=== PATIENT | female | born 1930 | race Caucasian/White ===

== ENCOUNTER 2016-09-19 16:46 | Inpatient (IN) | payer OTHER, MEDICARE ==
[~2016-09-19] VITALS: Ht 162.6 cm; Wt 81.6 kg
[~2016-09-19 16:46] MED LIST: ALPRAZOLAM0.5 M4 PO; CLOZARIL25 MG PO; GLIPIZIDE XL5 M1 PO; LISINOPRIL20 M1 PO; LOPERAMIDE2 M2 PO; MASON NATURAL2000 IU PO; MULTIPLE VITAM1 EAC2 PO; MYCOSTATIN POWD15 GM TOP; NORVASC 5MG TAB5 MG PO; OMEPRAZOLE20 MG PO; PRILOSEC 20MG C20 MG PO; SIMVASTATIN20 MG PO; SINEMET 25-1001 EACH PO; WARFARIN SODIUM2 MG PO
--- NOTE | 2016-09-19 16:58 | NUR ---
JOHANNA FROM HOME WITH COMPLAINTS OF WEAKNESS AND DIARRHEA FOR PAST 3 DAYS. PT REPORTS WATERY STOOLS, APPROX 3 YESTERDAY, TOOK IMMODIUM AND AT FIRST SAID SHE HAS HAD NO STOOLS TODAY BUT THEN SAID SHE HAD STOOL TODAY ALSO. AWAKE, ALERT AND ORIENTED, IN NO ACUTE DISTRESS
--- NOTE | 2016-09-19 16:58 | NUR ---
RECIEVED TO ROOM 17. TRANSFERRED TO [facility], VITALS TAKEN. PT RESTING QUIELTY WAITING ON PROVIDER TO SEE PT
--- NOTE | 2016-09-19 17:03 | ED GI/GU/ABDOMINAL COMPLAINT ---
History of Present Illness General Chief Complaint: General Adult Stated Complaint: BIBA DIARRHEA Source: patient, family, old records, EMS Exam Limitations: no limitations Vital Signs & Intake/Output Vital Signs & Intake/Output Vital Signs Date Time Temp Pulse Resp B/P Pulse O2 O2 Flow FiO2 Ox Delivery Rate 09/19 2226 97.5 69 18 124/56 96 Room Air 09/19 2148 98.1 84 16 130/58 95 Room Air 09/19 2045 97.0 72 18 142/58 94 Room Air 09/19 1826 96.3 77 18 148/62 93 Room Air 09/19 1800 Room Air 09/19 1655 98.2 96 16 164/84 95 Room Air ED Intake and Output 09/20 0000 09/19 1200 Intake Total 1999 Output Total 1 Balance 1998 Intake, IV 1999 Output, 1 Emesis Patient 180 lb Weight Allergies Coded Allergies: Opioids - Morphine Analogues (Intermediate, SEVERE NAUSEA/VOMITING 09/19/16) hydromorphone (Intermediate, SEVERE NAUSEA/VOMITING 09/19/16) morphine (Intermediate, VOMITING 09/19/16) Reconcile Medications Alprazolam 0.5 MG TABLET 1 TAB PO PRN ANXIETY/SLEEP (Reported) Carbidopa/Levodopa (Sinemet 25-100 MG Tablet) 25 MG-100 MG TABLET 0.5 TAB PO TID SIDE EFFECTS FROM MEDS (Reported) Cholecalciferol (Vitamin D3) (Vitamin D3) 1,000 UNIT CAPSULE 1 CAP PO BID SUPPLEMENT (Reported) Clozapine (Clozaril) 25 MG TABLET 0.5 TAB PO BID MENTAL HEALTH (Reported) Cyclobenzaprine HCl 10 MG TABLET 1 TAB PO AD PRN BACK PAIN (Reported) Glipizide (Glipizide XL) 5 MG TAB.ER.24 1 TAB PO QAM DM (Reported) Lisinopril 20 MG TABLET 1 TAB PO QAM BP (Reported) Loperamide HCl (Loperamide) 2 MG CAPSULE 1 CAP PO AD PRN DIARRHEA (Reported) Multivitamin (Multiple Vitamins) 1 EACH TABLET 1 TAB PO DAILY SUPPLEMENT ( Reported) Ondansetron (Zofran Odt) 4 MG TAB.RAPDIS 1 TAB SL AD PRN NAUSEA (Reported) Pyridoxine HCl (Vitamin B-6) 100 MG TABLET 1 TAB PO TID SUPPLEMENT (Reported) Simvastatin (Zocor*) 20 MG TABLET 1 TAB PO DAILY CHOLESTEROL (Reported) Warfarin Sodium (Coumadin) 3 MG TABLET 1 TAB PO AD BLOOD THINNER (Reported) Warfarin Sodium (Coumadin) 4 MG TABLET 1 TAB PO AD BLOOD THINNER (Reported) Triage Note: JOHANNA FROM HOME WITH COMPLAINTS OF WEAKNESS AND DIARRHEA FOR PAST 3 DAYS. PT REPORTS WATERY STOOLS, APPROX 3 YESTERDAY, TOOK IMMODIUM AND AT FIRST SAID SHE HAS HAD NO STOOLS TODAY BUT THEN SAID SHE HAD STOOL TODAY ALSO. AWAKE, ALERT AND ORIENTED, IN NO ACUTE DISTRESS Triage Nurses Notes Reviewed? yes ? n Is pt currently ? No Onset: Abrupt Duration: day(s): (1), constant Timing: recent history Quality/Severity: cramping Severity Numbers: 1 Location: generalized abdomen Radiation: no radiation Activities at Onset: none Prior Abdominal Problems: none No Modifying Factors: none Associated Symptoms: weakness HPI: This is a 86-year-old female with history of colon cancer status post hemicolectomy in 2002 Parkinson's A. fib, on Coumadin presents to the emergency room brought in by EMS complaining of weakness and several episodes of diarrhea for the past 3 days. She states she had a normal bowel movement yesterday, however the symptoms began again today. She denies abdominal pain chest pain shortness of breath fever chills or urinary symptoms however the patient states that she's been weak and lethargic secondary to her diarrhea and is been unable to tolerate by mouth. There are no modifying factors or associated symptoms. No recent antibiotic use. No weight loss no sick contacts with similar symptoms.her daughter helped to clean her up today and denies noting any black or bloody stools. (LOUIE JACK,BIRGIT) Past History Travel History Traveled to [place] past 21 day No Medical History Any Pertinent Medical History? see below for history Neurological: Parkinson's disease, INTERMITTENT CONFUSION EENT: NONE Cardiovascular: AFIB, hyperlipidemia, COMPLETE HEART BLOCK Respiratory: NONE Gastrointestinal: GERD, CHRONIC DIARRHEA Hepatic: NONE Renal: NONE Musculoskeletal: NONE Psychiatric: bipolar disease Endocrine: diabetes Blood Disorders: NONE Cancer(s): colon/rectal cancer GRAIN TRADER/Reproductive: NONE History of MRSA: No History of VRE: No History of CDIFF: No Pneumonia Vaccine: 05/21/06 Influenza Vaccine: 05/07/13 Surgical History Surgical History: appendectomy, cholecystectomy, colon resection (hemicolectomy right side 2002), PACEMAKER Psychosocial History Who do you live with Daughter Services at Home None What is your primary language Estonian Tobacco Use: Never used ETOH Use: occasional use, TWO DRINKS /DAY Illicit Drug Use: denies illicit drug use Family History Family History, If Any: Relation not specified for: FH: coronary artery disease Hx Contributory? No (BIRGIT PAVON) Review of Systems Review of Systems Constitutional: Reports: see HPI. All Other Systems: Reviewed and Negative Comments Review of systems: See HPI, All other systems negative. Constitutional, no chills fever or weight loss HEENT: No visual changes no sore throat no congestion Cardiovascular: No chest pain ,palpitation Skin, no jaundice no rashes Respiratory: No dyspnea cough sputum or hemoptysis GI: No nausea no vomiting (+) diarrhea : No dysuria No hematuria Muscle skeletal: no back pain, no neck pain, Neurologic: No numbness no confusion Psych: No stress anxiety or depression,. Heme/endocrine: No bruising no bleeding Immunology: No splenectomy (BIRGIT PAVON) Physical Exam Physical Exam General Appearance: well developed/nourished, no apparent distress, alert, awake Gastrointestinal: soft Comments: Well-developed well-nourished person in no acute distress HEENT: Normal EENT exam, extraocular motion intact, no nystagmus. Pupils equally round and reactive to light and accommodation. Nose is atraumatic. External auditory canal and Tympanic membranes clear. Pharynx normal. No swelling or edema. Neck: Supple, normal range of motion without pain or tenderness Back: Nontender, no CVA tenderness. Full range of motion Cardiovascular: Regular rate and rhythms no murmurs rubs Respiratory: Chest nontender. No respiratory distress.breath sounds clear to auscultation bilaterally Abdomen: Soft, nontender nondistended, no appreciable organomegaly. Normal bowel sounds. No ascites Extremity: No edema, no calf tenderness to palpation, normal and equal pulses. Neuro: Alert oriented x3, motor sensory normal, no focal neurologic deficits Skin: No appreciable rash on exposed skin, skin is warm and dry. Psych: Mood and affect is normal, memory and judgment is normal. Core Measures ACS in differential dx? Yes Severe Sepsis Present: No Septic Shock Present: No (BIRGIT PAVON) Progress Differential Diagnosis: AAA, bowel obstruction, colon cancer, diverticulitis, ischemic bowel, inflamm bowel dis, pancreatitis, PUD/GERD, perforated viscous, gastroentierits, colitis Plan of Care: Orders Procedure Date/time Status Regular Diet 09/20 B Active PROTHROMBIN TIME 09/20 0600 Active CBC WITHOUT DIFFERENTIAL 09/20 0600 Active BASIC ELECTROLYTES PLUS BUN&CR 09/20 0600 Active Pathway - chart 09/19 222 Active Pathway - chart 09/19 2218 Active House Staff 09/19 221 Active Patient Data 09/19 2218 Active Code Status 09/19 2218 Active Vital Signs 09/19 221 Active Teach/Educate 09/19 2209 Active Nutritional Intake, Monitor 09/19 2209 Active Isolation 09/19 2209 Active Patient Care Conference 09/19 221 Active Activity/Ambulation 09/19 221 Active Patient Data 09/19 2022 Active Admit to inpatient 09/19 1948 Active MISTAKE 09/19 1847 Active Intake & Output 09/19 1745 Active TROPONIN LEVEL 09/19 1730 Complete PROTHROMBIN TIME 09/19 1710 Complete EKG 09/19 1710 Active CULTURE,STOOL 09/19 1705 Active C.DIFFICILE 09/19 1705 Active LIPASE 09/19 1705 Complete LACTIC ACID 09/19 1705 Complete COMPREHENSIVE METABOLIC PANEL 09/19 1705 Complete CBC WITHOUT DIFFERENTIAL 09/19 1705 Complete AMYLASE 09/19 1705 Complete VTE Mechanical Prophylaxis 09/19 UNK Active MISTAKE 09/19 UNK Active Hemoccult 09/19 UNK Active FingerStick- Glucose 09/19 UNK Active Current Medications Sig/Mckay Start time Last Medication Dose Stop Time Status Admin Atorvastatin Calcium 10 MG 1700 09/20 1700 AC (Lipitor) Insulin Aspart 0 TIDAC 09/20 0800 CAN (NovoLOG) Insulin Aspart 0 TIDAC 09/20 0800 AC (NovoLOG) Acetaminophen 650 MG Q6P PRN 09/19 2230 AC (Tylenol) Alprazolam 0.5 MG DAILY NEEDED PRN 09/19 223 AC (Xanax) 09/26 2228 Ibuprofen 600 MG Q6P PRN 09/19 223 CAN (Motrin) Clozapine 12.5 MG BID 09/19 2226 AC (Clozaril 25MG Tab) Carbidopa/Levodopa 0.5 TAB TID 09/19 222 AC (Sinemet 25/100MG) Laboratory Tests 09/19/162004: Lactic Acid Cancelled 09/19/16 1730: Anion Gap 13, Estimated GFR > 60, BUN/Creatinine Ratio 21.3, Glucose 99, Lactic Acid 1.7, Calcium 9.0, Total Bilirubin 0.8, AST 51 H, ALT 39, Alkaline Phosphatase 71, Troponin I 0.02, Total Protein 6.9, Albumin 3.7, Globulin 3.2, Albumin/Globulin Ratio 1.2, Amylase < 30 L, Lipase 73, PT 36.5 H, INR 3.52 H, CBC w Diff NO MAN DIFF REQ, RBC 3.99 L, MCV 100.4 H, MCH 33.8 H, RDW 14.2, MPV 9.0, Gran % 58.0, Lymphocytes % 30.1, Monocytes % 10.7 H, Eosinophils % 1.2 , Basophils % 0 L, Absolute Granulocytes 4.6, Absolute Lymphocytes 2.4, Absolute Monocytes 0.8 H, Absolute Eosinophils 0.1, Absolute Basophils 0, PUBS MCHC 33.7 09/19/16 1710: Troponin I Cancelled Microbiology 09/19 1704 STOOL: Clostridium difficile Toxin A & B - ORD 09/19 1704 STOOL: Stool Culture - ORD Labs ordered old records reviewed IV fluids CAT scan ordered 09/19/2016 6:21:11 PM discussed the patient and her daughter all of her lab results to date and CT findings she's had no episodes of diarrhea here resting comfortably at this time case was discussed with Dr. Hairston Patient orthostatic upon standing week and feeling lightheaded upon attempted ambulation she is a fall risk premature discharge would BE medically harmful. Discussed with the patient and her family at leave all of her lab results they' re in agreement with admission at this time pending stool culture d/w dr tee will admit (LOUIE JACK,BIRGIT) Diagnostic Imaging: Viewed by Me: CT Scan. Discussed w/RAD: CT Scan. Radiology Impression: PATIENT: GEORGE NAJERA PRESENT AGE: 86 PATIENT ACCOUNT NO: [id number] : 31 LOCATION: [facility] ORDERING PHYSICIAN: BIRGIT JACK SERVICE DATE: 09/19/16 EXAM TYPE: CAT - CT ABD & PELVIS W/O IV CONTRAS EXAMINATION: CT ABDOMEN AND PELVIS WITHOUT CONTRAST CLINICAL INFORMATION: 86-year-old female patient with diarrhea, and weakness. History of colon cancer. COMPARISON: CT of the abdomen and pelvis on 01/29/2015. (For same symptoms). (Right hemicolectomy and sigmoid colitis). TECHNIQUE: Multidetector volumetric imaging was performed from the superior aspect of the liver through the pubic symphysis. Sagittal and coronal reformatted images were obtained on the technologist's workstation. DLP: 575 mGy -cm FINDINGS: Auricular Detoxification Specialist view shows wires from a dual-lead pacemaker in the appropriate position. The heart is prominent in size. The right hemidiaphragm is chronically elevated. Calcified fibroids are seen in the uterus. There is extensive vascular calcification throughout the abdominal aorta. LUNG BASES: Again there is chronic subsegmental atelectasis in the right lower lobe due to the elevated right hemidiaphragm. Coronary artery calcifications are evident. LIVER, GALLBLADDER, AND BILIARY TREE: The liver is normal. The common bile duct is dilated which is normal in a post cholecystectomy patient of this age. PANCREAS: Fatty infiltrated, atrophic. SPLEEN: The small presumed hemangioma is unchanged in size measuring 1.5 cm in diameter. ADRENAL GLANDS: Unremarkable. KIDNEYS AND URETERS: The kidneys are normal in size, shape, and attenuation. No hydronephrosis, hydroureter, or calculi seen. Again, there is chronic perinephric stranding bilaterally. BLADDER: Nearly empty but unremarkable. GASTROINTESTINAL TRACT: Again, there is evidence of a right hemicolectomy. No recurrent tumor is seen at the anastomotic site. On today's exam, there is absolutely no sign of sigmoid colitis that was present on the prior study. No free fluid is seen. Mesenteric fat is well preserved. Small bowel is normal. The stomach is distended by a moderate amount of fluid. A small hiatal hernia is present. ABDOMINAL WALL: There appears to be a fibrous tract extending from the umbilicus to the anterior abdominal wall at which point a small fat-containing hernia is seen. This is unchanged. Presumably this is postop. LYMPH NODES: Normal. VASCULAR: As mentioned above, diffuse arterial vascular calcification. This includes the uterine arteries. Presumably the patient has diabetes. PELVIC VISCERA: The retroflexed uterus contains a number of small calcified fibroids. No masses are seen. OSSEOUS STRUCTURES: No significant interval change in the degenerative joint disease and facet arthropathy. A small hemangioma is located in the vertebral body of T9. IMPRESSION: 1. No indication of active colitis at this time. Patient is status post right hemicolectomy. 2. Small calcified fibroids. DICTATED BY: ANDRY PATEL MD DATE/TIME DICTATED:09/19/161733 SCRUBBER SYSTEM ATTENDANT:BRODY DATE/TIME TRANSCRIBED:09/19/161733 CONFIDENTIAL, DO NOT COPY WITHOUT APPROPRIATE AUTHORIZATION. <Electronically signed in Other Vendor System> SIGNED BY: ANDRY PATEL MD 09/19/16 1800 Initial ED EKG: a sensed v paced at 80, no acute st seg changes, normal axis Prior EKG: unchanged (01/2015) (BIRGIT PAVON) Departure Departure Time of Disposition: 1948 Disposition: STILL A PATIENT Condition: Stable Clinical Impression Primary Impression: Orthostatic hypotension Secondary Impressions: Diarrhea Referrals: LAZARA LIVE MD (PCP/Family) Departure Forms: Customer Survey General Discharge Information Admission Note Spoke With: NAVJOT TEE MD Documentation of Exam: Documentation of any treatments & extenuating circumstances including Concerns Regarding Discharge (functional status, medication knowledge or non-compliance, living conditions, etc.) that warrant an admission rather than observation: IV fluids trend labs GI consult premature discharge would BE medically harmful possible PT consult for short-term rehabilitation she is a fall risk premature discharge would BE medically harmful as patient is orthostatic lightheaded here in the department upon ambulating (BIRGIT PAVON) PA/VENDOR RELATIONSHIP MANAGER Co-Sign Statement Statement: ED Attending supervision documentation- [X] I saw and evaluated the patient. I have also reviewed all the pertinent lab results and diagnostic results. I agree with the findings and the plan of care as documented in the PA's/VENDOR RELATIONSHIP MANAGER's documentation. [X] I have reviewed the ED Record and agree with the PA's/VENDOR RELATIONSHIP MANAGER's documentation. [] Additions or exceptions (if any) to the PAs/VENDOR RELATIONSHIP MANAGER's note and plan are summarized below: [] (JESSICA DE GUZMAN,EDWARD Baires)
--- NOTE | 2016-09-19 17:13 | NUR ---
GUERO DICKSON TO BEDSIDE FOR EVAL.
[2016-09-19] MEDS ORDERED: VITAMIN D31000 UNI1 PO (17:18)
[2016-09-19] MEDS ORDERED: VITAMIN B-6100 M1 PO (17:19)
[2016-09-19] MEDS ORDERED: COUMADIN3 M1 PO (17:20)
[2016-09-19] MEDS ORDERED: COUMADIN4 M1 PO (17:20)
[2016-09-19] MEDS ORDERED: ZOCOR20 M1 PO (17:21)
[2016-09-19] MEDS ORDERED: ZOFRAN ODT4 M1 SL (17:22)
--- NOTE | 2016-09-19 17:23 | NUR ---
PT CONTINUES AT CAT SCAN VIA STRETCHER.
[2016-09-19] MEDS ORDERED: CYCLOBENZAPRINE10 M1 PO (17:25)
--- NOTE | 2016-09-19 17:48 | NUR ---
LINE EST #20 TO LW. LABS SENT (LAV,SST,BLUE,MENDEZ.) NS BOLUS HUNG PER EMAR. PT NAUSEOUS AND VOMITED ABOUT 100ML OF YELLOW BILE AT THIS TIME. GUERO DICKSON MADE AWARE.
[2016-09-19 17:59] LABS: ABSOLUTE BASOPHIL COUNT 0 /CUMM (0.0-0.2); ABSOLUTE EOSINOPHIL COUNT 0.1 /CUMM (0.0-0.7); ABSOLUTE GRANULOCYTE CT 4.6 /CUMM (1.4-6.5); ABSOLUTE LYMPH COUNT 2.4 /CUMM (1.2-3.4); ABSOLUTE MONOCYTE COUNT 0.8 /CUMM (0.10-0.60); BASOPHIL % 0 % (0.0-2.0); EOSINOPHIL % 1.2 % (0-5); MEAN CORPUSCULAR HGB 33.8 PG (27.0-31.0); MEAN CORPUSCULAR HGB CONC 33.7 G/DL (33.0-37.0); MEAN CORPUSCULAR VOLUME 100.4 FL (81.0-99.0); PLATELET COUNT 153 /CUMM (130-400); RBC DISTRIBUTION WIDTH 14.2 % (11.5-14.5); RED BLOOD CELL CT 3.99 /CUMM (4.20-5.40); WHITE BLOOD CELL COUNT 7.9 /CUMM (4.8-10.8)
--- NOTE | 2016-09-19 18:00 | CT SCAN REPORT ---
EXAMINATION: CT ABDOMEN AND PELVIS WITHOUT CONTRAST CLINICAL INFORMATION: 86-year-old female patient with diarrhea, and weakness. History of colon cancer. COMPARISON: CT of the abdomen and pelvis on 01/29/2015. (For same symptoms). (Right hemicolectomy and sigmoid colitis). TECHNIQUE: Multidetector volumetric imaging was performed from the superior aspect of the liver through the pubic symphysis. Sagittal and coronal reformatted images were obtained on the technologist's workstation. DLP: 575 mGy-cm FINDINGS: Sinter Press Operator view shows wires from a dual-lead pacemaker in the appropriate position. The heart is prominent in size. The right hemidiaphragm is chronically elevated. Calcified fibroids are seen in the uterus. There is extensive vascular calcification throughout the abdominal aorta. LUNG BASES: Again there is chronic subsegmental atelectasis in the right lower lobe due to the elevated right hemidiaphragm. Coronary artery calcifications are evident. LIVER, GALLBLADDER, AND BILIARY TREE: The liver is normal. The common bile duct is dilated which is normal in a post cholecystectomy patient of this age. PANCREAS: Fatty infiltrated, atrophic. SPLEEN: The small presumed hemangioma is unchanged in size measuring 1.5 cm in diameter. ADRENAL GLANDS: Unremarkable. KIDNEYS AND URETERS: The kidneys are normal in size, shape, and attenuation. No hydronephrosis, hydroureter, or calculi seen. Again, there is chronic perinephric stranding bilaterally. BLADDER: Nearly empty but unremarkable. GASTROINTESTINAL TRACT: Again, there is evidence of a right hemicolectomy. No recurrent tumor is seen at the anastomotic site. On today's exam, there is absolutely no sign of sigmoid colitis that was present on the prior study. No free fluid is seen. Mesenteric fat is well preserved. Small bowel is normal. The stomach is distended by a moderate amount of fluid. A small hiatal hernia is present. ABDOMINAL WALL: There appears to be a fibrous tract extending from the umbilicus to the anterior abdominal wall at which point a small fat-containing hernia is seen. This is unchanged. Presumably this is postop. LYMPH NODES: Normal. VASCULAR: As mentioned above, diffuse arterial vascular calcification. This includes the uterine arteries. Presumably the patient has diabetes. PELVIC VISCERA: The retroflexed uterus contains a number of small calcified fibroids. No masses are seen. OSSEOUS STRUCTURES: No significant interval change in the degenerative joint disease and facet arthropathy. A small hemangioma is located in the vertebral body of T9. IMPRESSION: 1. No indication of active colitis at this time. Patient is status post right hemicolectomy. 2. Small calcified fibroids.
[2016-09-19 18:08] LABS: PT 36.5 SEC (9.4-12.5)
--- NOTE | 2016-09-19 19:27 | NUR ---
ORTHOSTATIC PRESSURES CHECKED. PT COMPLAINED OF WEAKNESS WHILE STANDING
--- NOTE | 2016-09-19 20:05 | NUR ---
BIRGIT PALMA AWARE OF POSITIVE ORTHOSTATIC VITALS, SECOND LITER OF IVF STARTED
--- NOTE | 2016-09-19 20:32 | NUR ---
PT ASSISTED IN GETTING PANTS OFF. WEARING DIAPER, STATES SHE IS INCONTINENT AT HOME. NO STOOL. PERINEAL AREA AND LOWER ABDOMINAL SKIN FOLD AND SKIN FOLD UNDER BOTH BREAST RED AND IRRITATED, DR VINES AWARE OF THIS.
--- NOTE | 2016-09-19 20:35 | History & Physical ---
NATTY DE GUZMAN,[facility] 09/19/162034: General Information and HPI MD Statement: I have seen and personally examined GEORGE NAJERA and documented this H&P. The patient is a 86 year old F who presented with a patient stated chief complaint of [diarrhea]. Source of Information: patient Exam Limitations: no limitations History of Present Illness: Patient is a pleasant 86 year old lady with a history of colon caner s/p right hemicolectomy, who is BIBA due diarrhea for 3 days and feeling very weak. she reports having nonbloody watery stool with foul smell almost 3 times a day. Every episode is accompanied by cramp which go away after defecation. Patient feels very weak, has been trying to drink and eat but reprots poor apetite. Denies abdominal pain and denies N/V, fever or chills. Also does not report any recent travels, change in diet, sick contact or recent antibiotic use. Of note, patient reprots recurrent similar episodes of diarrhea almost every month, but this time she felt very weak and decided to come. denies dizziness, LOC or fall. Denies chest pain, palpitation, SOB, also does not report any symptoms of upper respiratory infection and no urinary symptoms. She follows up regularly with her PCP Dr. Live every month. Her last admission at [facility] was in 2014 when she came with blood per rectum and was found to have ischemic colitis. Allergies/Medications Allergies: Coded Allergies: Opioids - Morphine Analogues (Intermediate, SEVERE NAUSEA/VOMITING 09/19/16) hydromorphone (Intermediate, SEVERE NAUSEA/VOMITING 09/19/16) morphine (Intermediate, VOMITING 09/19/16) Home Med list Alprazolam 0.5 MG TABLET 1 TAB PO PRN ANXIETY/SLEEP (Reported) Carbidopa/Levodopa (Sinemet 25-100 MG Tablet) 25 MG-100 MG TABLET 0.5 TAB PO TID SIDE EFFECTS FROM MEDS (Reported) Cholecalciferol (Vitamin D3) (Vitamin D3) 1,000 UNIT CAPSULE 1 CAP PO BID SUPPLEMENT (Reported) Clozapine (Clozaril) 25 MG TABLET 0.5 TAB PO BID MENTAL HEALTH (Reported) Cyclobenzaprine HCl 10 MG TABLET 1 TAB PO AD PRN BACK PAIN (Reported) Glipizide (Glipizide XL) 5 MG TAB.ER.24 1 TAB PO QAM DM (Reported) Lisinopril 20 MG TABLET 1 TAB PO QAM BP (Reported) Loperamide HCl (Loperamide) 2 MG CAPSULE 1 CAP PO AD PRN DIARRHEA (Reported) Multivitamin (Multiple Vitamins) 1 EACH TABLET 1 TAB PO DAILY SUPPLEMENT ( Reported) Ondansetron (Zofran Odt) 4 MG TAB.RAPDIS 1 TAB SL AD PRN NAUSEA (Reported) Pyridoxine HCl (Vitamin B-6) 100 MG TABLET 1 TAB PO TID SUPPLEMENT (Reported) Simvastatin (Zocor*) 20 MG TABLET 1 TAB PO DAILY CHOLESTEROL (Reported) Warfarin Sodium (Coumadin) 3 MG TABLET 1 TAB PO AD BLOOD THINNER (Reported) Warfarin Sodium (Coumadin) 4 MG TABLET 1 TAB PO AD BLOOD THINNER (Reported) Past History Travel History Traveled to [place] past 21 day No Medical History Neurological: Parkinson's disease, INTERMITTENT CONFUSION EENT: NONE Cardiovascular: AFIB, hyperlipidemia, COMPLETE HEART BLOCK Respiratory: NONE Gastrointestinal: GERD, CHRONIC DIARRHEA Hepatic: NONE Renal: NONE Musculoskeletal: NONE Psychiatric: bipolar disease Endocrine: diabetes Blood Disorders: NONE Cancer(s): colon/rectal cancer 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 Ambulation: cane Review of Systems Review of Systems Constitutional: Reports: malaise, weakness. Denies: chills, fever. EENTM: Reports: no symptoms. Cardiovascular: Denies: chest pain, palpitations, peripheral edema. Respiratory: Denies: cough, short of breath, sputum production. GI: Reports: diarrhea, changes in stool. Denies: abdominal pain, nausea, bloody stool, vomiting. Genitourinary: Reports: no symptoms. Musculoskeletal: Reports: no symptoms. Skin: Reports: no symptoms. Neurological/Psychological: Reports: tremors, weakness. Denies: ataxia, headache, numbness. Hematologic/Endocrine: Reports: no symptoms. Immunologic/Allergic: Reports: no symptoms. Exam & Diagnostic Data Last 24 Hrs of Vital Signs/I&O Vital Signs Date Time Temp Pulse Resp B/P Pulse O2 O2 Flow FiO2 Ox Delivery Rate 09/19 2226 97.5 69 18 124/56 96 Room Air 09/19 2148 98.1 84 16 130/58 95 Room Air 09/19 2045 97.0 72 18 142/58 94 Room Air 09/19 1826 96.3 77 18 148/62 93 Room Air 09/19 1800 Room Air 09/19 1655 98.2 96 16 164/84 95 Room Air Intake & Output 09/20 0800 09/20 0000 09/19 1600 Intake Total 1999 Output Total 1 Balance 1998 Intake, IV 1999 Output, 1 Emesis Patient 81.647 kg Weight Physical Exam General Appearance Alert, Oriented X3, Cooperative, No Acute Distress Skin No Rashes, No Breakdown, No Significant Lesion HEENT Atraumatic, PERRLA, EOMI, dry mucous membranes Neck Supple Cardiovascular Normal S1, Normal S2, No Murmurs, irregular Lungs Clear to Auscultation, Normal Air Movement Abdomen Normal Bowel Sounds, Soft, mild LUQ tenderness Neurological Normal Speech, Strength at 5/5 X4 Ext, Normal Tone, Sensation Intact, Cranial Nerves 3-12 NL Extremities No Clubbing, No Cyanosis, No Edema, Normal Pulses, No Tenderness/ Swelling Vascular Normal Pulses, Pulses Symmetrical Last 24 Hrs of Labs/Yury: Laboratory Tests 09/19/162004: Lactic Acid Cancelled 09/19/16 1730: Anion Gap 13, Estimated GFR > 60, BUN/Creatinine Ratio 21.3, Glucose 99, Lactic Acid 1.7, Calcium 9.0, Total Bilirubin 0.8, AST 51 H, ALT 39, Alkaline Phosphatase 71, Troponin I 0.02, Total Protein 6.9, Albumin 3.7, Globulin 3.2, Albumin/Globulin Ratio 1.2, Amylase < 30 L, Lipase 73, PT 36.5 H, INR 3.52 H, CBC w Diff NO MAN DIFF REQ, RBC 3.99 L, MCV 100.4 H, MCH 33.8 H, RDW 14.2, MPV 9.0, Gran % 58.0, Lymphocytes % 30.1, Monocytes % 10.7 H, Eosinophils % 1.2 , Basophils % 0 L, Absolute Granulocytes 4.6, Absolute Lymphocytes 2.4, Absolute Monocytes 0.8 H, Absolute Eosinophils 0.1, Absolute Basophils 0, PUBS MCHC 33.7 09/19/16 1710: Troponin I Cancelled Microbiology 09/19 170 STOOL: Clostridium difficile Toxin A & B - ORD 09/19 1704 STOOL: Stool Culture - ORD Assessment/Plan Assessment: Patient is a 86 year old lady with PMH significant for atrial fibrillation on coumadin, complete heart block s/p pacemaker (2012), hypertension, colon cancer s/p right hemicolectomy, Parkinsonian symptoms (patient denies parkinson's disease), diabetes type II, last admitted at [facility] in 2014 with ischemic colitis presented with blood per rectum. she came to the ED with 3 days of continuous diarrhea resulting in weakness and poor oral intake. In the ED patient is found to have orthostatic hypotension. Problem list and plan: Diarrhea etiologies: infectious (viral, bacterial, parasites), inflammatory, osmotic diarrhea in the setting of right hemicolectomy, ischemic colitis (pt has a history of LGIB and ischemic colitis, although denies blood in stool or abdominal pain). * IV hydration * check BEP in AM * repeat orthostat in AM * stool exam for ova, parasite, WBCs * stool culture * stool toxin for c-diff * Guaiac stool * GI follwo up as outpatient * repeat CBC in AM Atrial fibrillation * continue coumadin based on INR (therapeutic range: 2-3) * check INR in AM and dose coumadin Diabetes * hold Glipizide * accuchecks * insulin NSS HTN, HLD * continue lisinopril and statin Possible hx of schizoaffective disorder (and parkinsonism secondary to antipsychotics) Patient is unaware of any diagnosis for parkinson's disease or a mood disorder. * continue clozapine and sinemet * will obtain further history from the family (she lives with her daughter) Consistent carbohydrate diet 2 DVT px with coumadin FC As Ranked By This Provider Problem List: 1. Hypertension 2. Hyperlipidemia 3. Diabetes 4. Complete heart block 5. Parkinsonian features 6. Atrial fibrillation 7. Orthostatic hypotension 8. Diarrhea Core Measures/Miscellaneous Acute Coronary Syndrome ACS Diagnosis: No Cerebrovascular Accident CVA/TIA Diagnosis: No Congestive Heart Failure CHF Diagnosis: No Venous Thromboembolism VTE Risk Factors: Acute medical illness, Age > 40 VTE Prophylaxis Ordered Inpt: [facility] prophylaxis d/t: No contraindications No VTE Pharm Prophylaxis d/t: No contraindications VTE Diagnosis: No VTE Type: NONE VTE Confirmed by (Test): NONE Severe Sepsis Severe Sepsis Present: No Septic Shock Septic Shock Present: No Miscellaneous Documentation Attending Case Discussed With: NAVJOT DUMONT MD Primary Care Physician: LAZARA LIVE MD A Patient sees these Specialists GI specialist, patient does not remember the name Level of Patient Care: General Medicine YANNI YOO 09/19/166: Resident Review Statement Resident Statement: examined this patient, discussed with internetworking technician, agreed with internetworking technician Other Findings: Patient is 86-year-old female with past medical history significant for colon cancer status post hemicolectomy in 2002, Parkinson's disease, bipolar disease, atrial fibrillation on Coumadin, diabetes mellitus and hypertension came with chief complaint of diarrhea and weakness for 3 days. Patient endorses that she had off-and-on diarrhea from couple of weeks but was relieved by taking Imodium. This time she started diarrhea 3 days ago had a to 4 bowel movements daily, stool is soft without any evidence of blood or mucus but foul smelly more than usual. She also admits for having some nausea and vomiting off and on. Her diarrhea is associated with abdominal cramps but abdominal cramps relieved after having bowel movement. Denied outside food, recent travel, sick contact, recent antibiotic use within the last few weeks. Seen by PCP almost 2 weeks ago. She admits that she was feeling very weak and dizzy on changing her position from sitting to standing and movement. She denied gait imbalance or recent fall, syncope or loss of consciousness. She denies chest pain, palpitations, headache, numbness or tingling in her extremities or urinary complaints. Her last admission at [facility] was in 2014 due to bleeding per rectum most likely it was ischemic colitis. Vital signs on admission were temperature 98.2, pulse 96, respiratory rate 16, blood pressure 164/84, she was saturating 95% on room air. Orthostatics were positive her blood pressure on lying position was 140/62, 134/60 on sitting and 100/50 on standing. Admission labs were significant for WBC count 7.9, bilirubin 13.5, hematocrit 40 , platelet count 153, INR 3.52, sodium 143, potassium 4.1, BUNs [address] abdomen was negative for any evidence of acute colitis. EKG showed paced rhythm Physical examination Alert and oriented 3 Dry mucous membranes Head atraumatic Neck supple Chest clear to auscultate Heart S1 and S2 normal, irregularly irregular with no added sounds Abdomen soft, slight generalized abdominal tenderness with no organomegaly Extremities showed trace edema. Assessment and plan 86-year-old female with history of colon cancer status post hemicolectomy, hypertension, bipolar disorder/questionable schizophrenia, Parkinson's disease came with chief complaint of diarrhea and weakness for 3 days which could be viral gastroenteritis but we will rule out C. difficile. Problem list 1. Acute on chronic diarrhea 2. Weakness 3. History of Parkinson disease 4. Bipolar disorder 5. History of atrial fibrillation on Coumadin We will admit patient on general medical floor Vital signs every 3-4 hours Orthostatic vital signs every shift IV hydration with normal saline at rate 100 mils per hour We will send stool for culture and C. difficile We will watch for any signs of infection/acute abdomen We'll trend her WBC count and monitor electrolytes and will replete accordingly We'll continue all her home medications except antihypertensives and oral hypoglycemics Accu-Cheks and cover with NovoLog according to sliding scale. We will hold Coumadin for now as her INR is supratherapeutic we will check INR in the morning and dose according Pharmacological DVT prophylaxis Patient is full code NAVJOT DUMONT 09/20/16 0212: Attending MD Review Statement Attending Statement Attending MD Statement: examined this patient, discuss w/resident/PA/CLIENT ANALYST, agreed w/resident/PA/CLIENT ANALYST, reviewed EMR data (avail), reviewed images, amended to note Attending Assessment/Plan: CC: Diarrhea, feeling weak and lightheaded PMH : A. fib, complete heart block S/P pacer, HTN, history of colon cancer S/P right hemicolectomy, schizoaffective disorder complicated by tardive dyskinesia, DM 2 Patient is is brought in by EMS for diarrhea for 3 days and feeling very weak. she had 3 nonbloody watery stools with foul smell today, 5 times yesterday. Complains of mild soreness in abdomen without cramps. Because of frequency of diarrhea she was feeling very weak, with poor apetite. denies N/V, fever or chills, recent travels, change in diet, sick contact or recent antibiotic use, dizziness, LOC, fall. She has been getting recurrent watery stools, relieved at times with Imodium. Vitals: Afebrile, HR 96 at presentation with a BP of 164/84 saturating 95% on room air. Orthostatic vitals: B/P Lying 140/62 Pulse 73 B/P Sitting 134/60 Pulse 90 B/P Standing 100/50 Pulse 98 On exam: A O 3, lethargic, no acute distress, neck supple, no lymphadenopathy, no JVD, mucosa dry. CVS: S1-S2, RS: Clear to auscultate bilaterally. Abdomen: Soft, NT, ND, bowel sounds present. No dependent edema, no focal neurological deficit, no obvious rashes except fungal irritation in the groin falls and inframamillary area. Labs: Mildly elevated AST at 51 otherwise CBC, BMP, lactate, LFT unremarkable. INR 3.52 CT abdomen and pelvis without IV contrast:No indication of active colitis at this time. Patient is status post right hemicolectomy. Small calcified fibroids A and P #1 diarrhea: Three-day history of multiple stool, watery. No leukocytosis, no fever, abdomen nontender. CT findings unremarkable. Please obtain C. difficile. Viral etiologies possible for gastroenteritis, continue IV fluids. Obtain stool guaiac. Patient denies any jermaine blood in the stool. Continue soft GI diet for now as tolerated. May require outpatient GI follow-up for recurrent diarrhea episodes. #2 orthostatic hypotension: This probably is secondary to to volume loss in diarrhea. Patient received 2 L normal saline bolus in ER, continue IV Endocet 100 mL per hour. Repeat orthostatics in a.m. Given history of parkinsonism at anonymous dysfunction is possible but less likely. #3 patient has history of schizoaffective disorder currently on clozapine. Patient had episode of hospital delirium/psychosis and previous hospitalization. Watchful for systemic deterioration. #4 history of hypertension: Hold her antihypertensives. #5 history of parkinsonism/tardive dyskinesia: Patient was previously on Zyprexa which was changed to clozapine with improvement of symptoms. This is your tardive dyskinesia or combination of both is not clear if patient is on Sinemet, continue the same in hospital. #6 DM: Hold glipizide, continue sliding scale insulin short-acting with Accu- Cheks before meals and at bedtime. #7 A. fib, heart block S/P pacer: Patient currently on warfarin, INR supratherapeutic, hold her dose of warfarin, recheck INR in a.m., the dose of warfarin accordingly. #8 DVT prophylaxis: Supratherapeutic INR.
--- NOTE | 2016-09-19 21:01 | NUR ---
BARRIER WIPES USED TO CLEANSE UNDER BREAST, LOWER ABDOMINAL SKIN FOLD AND PERINEAL AREA
--- NOTE | 2016-09-19 21:05 | NUR ---
PT HAS BED #212-1
--- NOTE | 2016-09-19 21:40 | NUR ---
REPORT GIVEN TO [facility] AWARE PT HAS NOT HAD ANY STOOLS SINCE ADMISSION SO NO STOOL SPECIMENS SENT
[2016-09-19 22:26] VITALS: BP 124/56
--- NOTE | 2016-09-19 23:59 | NUR ---
PT ARRIVED FROM ED VIA STRETCHER AT 2200 R/T GI BLEED. ALERT/ORIENTED X2.DIZZY FORGETFUL AND [place] OF [place]. LSCTA. ABD SOFT NONTENDER. HYPOACTIVE BS ALL QUADRANTS. NO BM AT THIS TIME. INCONTINENT OF BLADER. RASHT TO ABDOMINAL FOLDS AND NILATERAL UNDERBREASTS. SKIN INTACT. NO EDEMA. PT FEELING DIZZY WHEN STANDING. ENCOURAGED FLUIDS. ADMISSION ORDERS INITIATED. FALL PRECAUTIONS MAINTAINED. ORTHSTATIC BP COMPLETED. WILL CONTINUE TO MONITOR ACCORDING TO POC.
--- NOTE | 2016-09-20 02:14 | Admission Certification ---
Admission Certification Certification Statement - As attending physician, I certify that at the time of - admission, based on clinical presentation, severity of - symptoms, need for further diagnostic testing and - therapeutic interventions, and risk of adverse outcomes - without in-hospital treatment, in my clinical assessment, - this patient requires an acute hospital stay for a minimum - of two nights or longer. I have also considered psychsocial - factors such as support system, advanced age, financial - issues, cognitive issues, and failed out-patient treatments, - past re-admission history, safety of patient, and lack of - compliance as applicable. Specific rationale supporting this admission is: Diarrhea, orthostatic hypotension
--- NOTE | 2016-09-20 04:59 | PN- Housestaff ---
Subjective Follow-up For: diarrhea orthostatic hypotension Subjective: Patient reports no further episodes of diarrhea and no abdominal cramps, still feels weak and feels needs to be in the hospital. no SOB, no palpitation, no chest pain, no abdominal pain. Review of Systems Constitutional: Reports: malaise, weakness. Denies: chills, fever. EENTM: Reports: no symptoms. Cardiovascular: Reports: no symptoms. Denies: chest pain, palpitations, peripheral edema. Respiratory: Denies: cough, sputum production. Gastrointestinal: Denies: abdominal pain, diarrhea, nausea, bloody stool, vomiting. Genitourinary: Reports: no symptoms. Musculoskeletal: Reports: no symptoms. Skin: Reports: no symptoms. Objective Last 24 Hrs of Vital Signs/I&O Vital Signs Date Time Temp Pulse Resp B/P Pulse O2 O2 Flow FiO2 Ox Delivery Rate 09/19 2225 97.5 69 18 124/56 96 Room Air 09/19 2148 98.1 84 16 130/58 95 Room Air 09/19 2045 97.0 72 18 142/58 94 Room Air 09/19 1826 96.3 77 18 148/62 93 Room Air 09/19 1800 Room Air 09/19 1655 98.2 96 16 164/84 95 Room Air Intake & Output 09/20 0800 09/20 0000 09/19 1600 Intake Total 2000 Output Total 1 Balance 1998 Intake, IV 1999 Output, 1 Emesis Patient 81.647 kg Weight Physical Exam General Appearance: Alert, Oriented X3, Cooperative, No Acute Distress Skin: No Rashes, No Breakdown, No Significant Lesion HEENT: Atraumatic, PERRLA, EOMI, Mucous Membr. moist/pink Neck: Supple Cardiovascular: Normal S1, Normal S2, No Murmurs, irregular Lungs: Clear to Auscultation, Normal Air Movement Abdomen: Normal Bowel Sounds, Soft, No Tenderness Neurological: Normal Speech, Strength at 5/5 X4 Ext, Normal Tone, Sensation Intact, Cranial Nerves 3-12 NL Extremities: No Clubbing, No Cyanosis, No Edema, Normal Pulses, No Tenderness/ Swelling Vascular: Normal Pulses, Pulses Symmetrical Current Medications: Current Medications Sig/Mckay Start time Last Medication Dose Route Stop Time Status Admin Acetaminophen 650 MG Q6P PRN 09/19 2229 AC 09/20 PO 0325 Alprazolam 0.5 MG DAILY NEEDED PRN 09/19 2229 AC PO 09/26 222 Atorvastatin Calcium 10 MG 1700 09/20 1700 AC PO Carbidopa/Levodopa 0.5 TAB TID 09/19 2225 AC 09/20 PO 0138 Clozapine 12.5 MG BID 09/19 2226 AC 09/20 PO 0138 Ibuprofen 600 MG Q6P PRN 09/19 2230 CAN PO Influenza Virus 0.5 ML 1000 09/20 1000 AC Vaccine IM 09/20 1001 Insulin Aspart 0 TIDAC 09/20 0800 CAN SC Insulin Aspart 0 TIDAC 09/20 0800 AC SC Ondansetron HCl 0 .STK-MED ONE 09/19 1749 DC .ROUTE Ondansetron HCl 4 MG ONCE ONE 09/19 1745 DC 09/19 IV 09/19 1746 1752 Sodium Chloride 1,000 ML Q10H 09/19 223 AC 09/20 IV 0003 Sodium Chloride 1,000 ML BOLUS ONE 09/19 1930 DC 09/19 IV 09/19 Sodium Chloride 1,000 ML BOLUS ONE 09/19 1715 DC 09/19 IV 09/19 1814 1745 Last 24 Hrs of Lab/Yury Results Last 24 Hrs of Labs/Mics: Laboratory Tests 09/19/16 2005: Lactic Acid Cancelled 09/19/16 1730: Anion Gap 13, Estimated GFR > 60, BUN/Creatinine Ratio 21.3, Glucose 99, Lactic Acid 1.7, Calcium 9.0, Total Bilirubin 0.8, AST 51 H, ALT 39, Alkaline Phosphatase 71, Troponin I 0.02, Total Protein 6.9, Albumin 3.7, Globulin 3.2, Albumin/Globulin Ratio 1.2, Amylase < 30 L, Lipase 73, PT 36.5 H, INR 3.52 H, CBC w Diff NO MAN DIFF REQ, RBC 3.99 L, MCV 100.4 H, MCH 33.8 H, RDW 14.2, MPV 9.0, Gran % 58.0, Lymphocytes % 30.1, Monocytes % 10.7 H, Eosinophils % 1.2 , Basophils % 0 L, Absolute Granulocytes 4.6, Absolute Lymphocytes 2.4, Absolute Monocytes 0.8 H, Absolute Eosinophils 0.1, Absolute Basophils 0, PUBS MCHC 33.7 09/19/16 1710: Troponin I Cancelled Microbiology 09/19 1704 STOOL: Clostridium difficile Toxin A & B - COLB 09/19 1704 STOOL: Stool Culture - COLB Assessment/Plan Assessment: Patient is a 86 year old lady with PMH significant for atrial fibrillation on coumadin, complete heart block s/p pacemaker (2012), hypertension, colon cancer s/p right hemicolectomy, Parkinsonian symptoms (patient denies parkinson's disease), diabetes type II, last admitted at [facility] in 2014 with ischemic colitis presented with blood per rectum. she came to the ED with 3 days of continuous diarrhea resulting in weakness and poor oral intake. In the ED patient is found to have orthostatic hypotension. Problem list and plan: Diarrhea etiologies: infectious (viral, bacterial, parasites), inflammatory, osmotic diarrhea in the setting of right hemicolectomy, ischemic colitis (pt has a history of LGIB and ischemic colitis, although denies blood in stool or abdominal pain). * IV hydration * check BEP in AM * repeat orthostat in AM * stool exam for ova, parasite, WBCs * stool culture * stool toxin for c-diff * Guaiac stool * GI follwo up as outpatient * repeat CBC in AM Atrial fibrillation * continue coumadin based on INR (therapeutic range: 2-3) * check INR in AM and dose coumadin Diabetes * hold Glipizide * accuchecks TID AC * insulin NSS HTN, HLD * continue lisinopril and statin Hx of schizoaffective disorder and parkinsonism * continue clozapine and sinemet Consistent carbohydrate diet 2 DVT px with coumadin FC Problem List: 1. Diarrhea 2. Orthostatic hypotension 3. Parkinsonian features Pain Ratin Pain Location: none Pain Goal: Pain 4 or less Pain Plan: tylenol Tomorrow's Labs & Rationales: INR (on coumadin)
[2016-09-20 08:18] LABS: ABSOLUTE BASOPHIL COUNT 0 /CUMM (0.0-0.2); ABSOLUTE EOSINOPHIL COUNT 0.1 /CUMM (0.0-0.7); ABSOLUTE GRANULOCYTE CT 3.3 /CUMM (1.4-6.5); ABSOLUTE LYMPH COUNT 1.9 /CUMM (1.2-3.4); ABSOLUTE MONOCYTE COUNT 0.6 /CUMM (0.10-0.60); BASOPHIL % 0.5 % (0.0-2.0); EOSINOPHIL % 1.7 % (0-5); GRANULOCYTE % 55.4 % (42.2-75.2); MEAN CORPUSCULAR HGB 34.1 PG (27.0-31.0); MEAN CORPUSCULAR HGB CONC 33.8 G/DL (33.0-37.0); MEAN CORPUSCULAR VOLUME 101.1 FL (81.0-99.0); MEAN PLATELET VOLUME 9.1 FL (7.4-10.4); PLATELET COUNT 127 /CUMM (130-400); RBC DISTRIBUTION WIDTH 14.2 % (11.5-14.5); RED BLOOD CELL CT 3.27 /CUMM (4.20-5.40)
[2016-09-20 08:19] LABS: PT 36.5 SEC (9.4-12.5)
[2016-09-20 08:26] VITALS: BP 122/60
--- NOTE | 2016-09-20 16:07 | PN- Att Addend ---
Attending MD Review Statement Attending Statement Attending MD Statement: examined this patient, discuss w/resident/PA/CLAIM ADMINISTRATOR, agreed w/resident/PA/CLAIM ADMINISTRATOR, reviewed EMR data (avail), discussed w/nursing Attending Assessment/Plan: Laboratory Tests 09/20/16 0618: Anion Gap 8, Estimated GFR > 60, BUN/Creatinine Ratio 17.1, PT 36.5 H, INR 3.52 H, CBC w Diff NO MAN DIFF REQ, RBC 3.27 L, MCV 101.1 H, MCH 34.1 H, RDW 14.2 , MPV 9.1, Gran % 55.4, Lymphocytes % 32.4, Monocytes % 10.0 H, Eosinophils % 1.7, Basophils % 0.5, Absolute Granulocytes 3.3, Absolute Lymphocytes 1.9, Absolute Monocytes 0.6, Absolute Eosinophils 0.1, Absolute Basophils 0, PUBS MCHC 33.8 09/19/162004: Lactic Acid Cancelled 09/19/16 1730: Anion Gap 13, Estimated GFR > 60, BUN/Creatinine Ratio 21.3, Glucose 99, Lactic Acid 1.7, Calcium 9.0, Total Bilirubin 0.8, AST 51 H, ALT 39, Alkaline Phosphatase 71, Troponin I 0.02, Total Protein 6.9, Albumin 3.7, Globulin 3.2, Albumin/Globulin Ratio 1.2, Amylase < 30 L, Lipase 73, PT 36.5 H, INR 3.52 H, CBC w Diff NO MAN DIFF REQ, RBC 3.99 L, MCV 100.4 H, MCH 33.8 H, RDW 14.2, MPV 9.0, Gran % 58.0, Lymphocytes % 30.1, Monocytes % 10.7 H, Eosinophils % 1.2 , Basophils % 0 L, Absolute Granulocytes 4.6, Absolute Lymphocytes 2.4, Absolute Monocytes 0.8 H, Absolute Eosinophils 0.1, Absolute Basophils 0, PUBS MCHC 33.7 09/19/16 1710: Troponin I Cancelled Vital Signs Date Time Temp Pulse Resp B/P Pulse O2 O2 Flow FiO2 Ox Delivery Rate 09/20 0826 97.4 68 18 122/60 94 Room Air 09/19 2226 97.5 69 18 124/56 96 Room Air 09/19 2148 98.1 84 16 130/58 95 Room Air 09/19 2045 97.0 72 18 142/58 94 Room Air 09/19 1826 96.3 77 18 148/62 93 Room Air 09/19 1800 Room Air 09/19 1655 98.2 96 16 164/84 95 Room Air
--- NOTE | 2016-09-20 16:09 | PN- Att Addend ---
Attending MD Review Statement Attending Statement Attending MD Statement: examined this patient, discuss w/resident/PA/SUPERANNUATION CLERK, agreed w/resident/PA/SUPERANNUATION CLERK, reviewed EMR data (avail), discussed w/nursing Attending Assessment/Plan: 86 year female with PMH significant for atrial fibrillation on coumadin, complete heart block s/p pacemaker (2012), hypertension, colon cancer s/p right hemicolectomy, Parkinsonian symptoms on sinimet, diabetes type II, schizoaffective disorder on clozapine last admitted at [place] in 2014 with ischemic colitis presented with blood per rectum. she came to the ED with 3 days of continuous diarrhea resulting in weakness and poor oral intake. 09/20- pt does not have diarrhea anymore Plan- will f/u on stool culture and c diff. if cont to have diarrhea we will get GI consult . CT abdomen-No indication of active colitis at this time.
[2016-09-20 16:19] VITALS: BP 122/72
--- NOTE | 2016-09-20 20:05 | NUR ---
NURSING NOTE: PATIENT VOMITED MOD AMT OF VOMITUS X 2. FLIGHT ATTENDANT/INFLIGHT SUPERVISOR RITA WAS NOTIFIED. GIVE ZOFRAN PER RITA. PATIENT STATED THAT SHE WASN'T NOT NAUSEOUS. REPORT TO NIGHT NURSE TO GIVE ZOFRAN IF SHE C/O NAUSEA.
[2016-09-20 22:46] VITALS: BP 122/70
--- NOTE | 2016-09-21 07:02 | PN- Housestaff ---
See Addendum Subjective Follow-up For: diarrhea orthostatic hypotension Subjective: Patient is alert and awake, laying in bed, reports no diarrhea or abdominal pain , no N/V, fever or chills. Of note, yesterday afternoon patient had N/V and vomited (nonbloody and yellowish). Review of Systems Constitutional: Reports: weakness. Denies: chills, fever. EENTM: Reports: no symptoms. Cardiovascular: Denies: chest pain, palpitations. Respiratory: Denies: cough, short of breath. Gastrointestinal: Denies: abdominal pain, diarrhea, vomiting. Genitourinary: Reports: no symptoms. Musculoskeletal: Reports: no symptoms. Skin: Reports: no symptoms. Objective Last 24 Hrs of Vital Signs/I&O Vital Signs Date Time Temp Pulse Resp B/P Pulse O2 O2 Flow FiO2 Ox Delivery Rate 09/20 2246 97.4 70 20 122/70 94 Room Air 09/20 1619 98.2 64 18 122/72 94 Room Air 09/20 0826 97.4 68 18 122/60 94 Room Air Intake & Output 09/21 1600 09/21 0800 09/21 0000 Intake Total 900 420 Output Total 425 200 Balance 475 220 Intake, IV 800 300 Intake, Oral 100 120 Output, Urine 425 200 Physical Exam General Appearance: Alert, Oriented X3, Cooperative, No Acute Distress Skin: No Rashes, No Breakdown HEENT: Atraumatic, EOMI Neck: Supple Cardiovascular: Normal S1, Normal S2, No Murmurs Lungs: Clear to Auscultation, Normal Air Movement Abdomen: Soft, No Tenderness Neurological: Normal Speech, Normal Tone Extremities: No Clubbing, No Cyanosis, No Edema Last 24 Hrs of Lab/Yury Results Last 24 Hrs of Labs/Mics: Laboratory Tests 09/21/16 0640: Sodium Pending, Potassium Pending, Chloride Pending, Carbon Dioxide Pending, Anion Gap Pending, BUN Pending, Creatinine Pending, BUN/Creatinine Ratio Pending 09/21/16 0620: PT Pending, INR Pending, CBC w Diff Pending, WBC Pending, RBC Pending, Hgb Pending, Hct Pending, MCV Pending, MCH Pending, RDW Pending, Plt Count Pending, MPV Pending, Gran % Pending, Lymphocytes % Pending, Monocytes % Pending, Eosinophils % Pending, Basophils % Pending, Absolute Granulocytes Pending, Absolute Lymphocytes Pending, Absolute Monocytes Pending, Absolute Eosinophils Pending, Absolute Basophils Pending, PUBS MCHC Pending Microbiology 09/20 1544 STOOL: Clostridium difficile Toxin A & B - COLB Assessment/Plan Assessment: Patient is a 86 year old lady with PMH significant for atrial fibrillation on coumadin, complete heart block s/p pacemaker (2012), hypertension, colon cancer s/p right hemicolectomy, Parkinsonian symptoms (patient denies parkinson's disease), diabetes type II, last admitted at [place] in 2014 with ischemic colitis presented with blood per rectum. she came to the ED with 3 days of continuous diarrhea resulting in weakness and poor oral intake. In the ED patient is found to have orthostatic hypotension. Problem list and plan: Diarrhea- resolved Patient had N/V yesterday evening. no diarrhea reported. * DC'd fluids, has adequate oral intake, orthostats are negative x2 days * f/u stool exam for ova, parasite, WBCs, stool culture, stool toxin for c-diff * f/u Guaiac stool * GI follow up as outpatient * repeat CBC and BEP in AM weakness generalized, no FNDs. orthostats negative. * PT eval: patient requires STR (needs assistance to maintain standing and can't take challenges) Atrial fibrillation * continue coumadin based on INR (therapeutic range: 2-3) * check INR in AM and dose coumadin Diabetes * hold Glipizide * acucise TID AC * insulin NS HTN, HLD * continue lisinopril and statin Hx of schizoaffective disorder and parkinsonism * continue clozapine and sinemet Consistent carbohydrate diet 2 DVT px with coumadin FC Problem List: 1. Orthostatic hypotension 2. Diarrhea 3. Atrial fibrillation Pain Ratin Pain Location: no pain Pain Goal: Pain 4 or less Pain Plan: mild pp Tomorrow's Labs & Rationales: CBC, BEP, INR anemia, vomiting, on coumadin
[2016-09-21 07:46] LABS: ABSOLUTE BASOPHIL COUNT 0 /CUMM (0.0-0.2); ABSOLUTE EOSINOPHIL COUNT 0.1 /CUMM (0.0-0.7); ABSOLUTE GRANULOCYTE CT 3.8 /CUMM (1.4-6.5); ABSOLUTE LYMPH COUNT 1.2 /CUMM (1.2-3.4); ABSOLUTE MONOCYTE COUNT 0.5 /CUMM (0.10-0.60); BASOPHIL % 0.5 % (0.0-2.0); EOSINOPHIL % 2.2 % (0-5); GRANULOCYTE % 66.9 % (42.2-75.2); MEAN CORPUSCULAR HGB 33.8 PG (27.0-31.0); MEAN CORPUSCULAR HGB CONC 33.3 G/DL (33.0-37.0); MEAN CORPUSCULAR VOLUME 101.5 FL (81.0-99.0); MEAN PLATELET VOLUME 8.6 FL (7.4-10.4); RBC DISTRIBUTION WIDTH 14.3 % (11.5-14.5); RED BLOOD CELL CT 3.45 /CUMM (4.20-5.40); WHITE BLOOD CELL COUNT 5.6 /CUMM (4.8-10.8)
[2016-09-21 08:46] LABS: PLATELET COUNT 112 /CUMM (130-400)
[2016-09-21 08:54] VITALS: BP 138/80
--- NOTE | 2016-09-21 11:33 | Patient Discharge Instructions ---
Discharge Instructions General Discharge Information You were seen/treated for: Chronic diarrhea Orthostatic hypotension Watch for these problems: Dizziness, headaches, blurred vision. Persistent diarrhea, bloody stool, abdominal pain, fevers or chills. Special Instructions: 1. Please take all medications as directed. Please note that your lisinopril is stopped due to low blood pressure. Follow up with your PCP within 1-2 weeks regarding restarting lisinopril. 2. Please have your INR and CBC checked within 1 week after discharge. there is a script for you to check and copy PCP, Dr. Yoo. 3. Please follow-up with the real estate broker within 1-2 weeks of discharge for possible further workup on the chronic diarrhea. Diet Continue normal diet: Yes Activity Full Activity/No Limits: Yes Acute Coronary Syndrome Inclusion Criteria At DC or during hospital stay patient has or had the following: ACS DIAGNOSIS No Discharge Core Measures Meds if any: Prescribed or Continued at Discharge Meds if any: NOT Prescribed or Continued at Discharge Congestive Heart Failure Inclusion Criteria At DC or during hospital stay patient has or had the following: CHF DIAGNOSIS No Discharge Core Measures Meds if any: Prescribed or Continued at Discharge Meds if any: NOT Prescribed or Continued at Discharge Cerebrovascular accident Inclusion Criteria At DC or during hospital stay patient has or had the following: CVA/TIA Diagnosis No Discharge Core Measures Meds if any: Prescribed or Continued at Discharge Meds if any: NOT Prescribed or Continued at Discharge Venous thromboembolism Inclusion Criteria VTE Diagnosis No VTE Type NONE VTE Confirmed by (Test) NONE Discharge Core Measures - Per Current guidelines, there needs to be overlap - treatment for the first 5 days of Warfarin therapy. - If discharged on Warfarin prior to 5 days of - overlap therapy, the patient will need to be - assessed for post discharge needs including - *Post discharge parental anticoagulation - *Warfarin and/or parental anticoagulation education - *Follow up date to check INR post discharge At least 5 days overlap therapy as Inpatient No Meds if any: Prescribed or Continued at Discharge Note: Overlap Therapy is Warfarin and Anticoagulant Meds if any: NOT Prescribed or Continued at Discharge
--- NOTE | 2016-09-21 11:57 | Discharge Summary ---
See Addendum Visit Information Visit Dates Admission Date: 09/19/16 Discharge Date: 09/22/16 Hospital Course Course Attending Physician: MELVIN DE GUZMAN,RADHA Worley Primary Care Physician: LAZARA LIVE MD Hospital Course: 86-year-old female with past medical history significant for colon cancer status post hemicolectomy in 2002, Parkinson's disease, bipolar disease, atrial fibrillation on Coumadin, diabetes mellitus and hypertension came with chief complaint of diarrhea and weakness for 3 days. She admittedf that she was feeling very weak and dizzy on changing her position from sitting to standing and movement. Vital signs on admission were temperature 98.2, pulse 96, respiratory rate 16, blood pressure 164/84, she was saturating 95% on room air. Orthostatics were positive her blood pressure on lying position was 140/62, 134/60 on sitting and 100/50 on standing. Admission labs were significant for WBC count 7.9, bilirubin 13.5, hematocrit 40 , platelet count 153, INR 3.52, sodium 143, potassium 4.1, BUNs [address] abdomen was negative for any evidence of acute colitis. Problem list: 1. Acute on chronic diarrhea 2. Weakness 3. History of Parkinson disease 4. Bipolar disorder 5. History of atrial fibrillation on Coumadin Hospital course: Diarrhea Interval improvement over the 3-4 day hospital course Patient did require intermittent fluid resuscitation, orthostatics remained negative Unable to obtain stool cultures for analysis Postdischarge recommendations to follow up with her technology director for possible further workup Weakness H&E exhibited generalized weakness with no evidence of focal neurologic deficits Orthostatics were negative Post evaluation with physical therapy: Recommendations for STIR: Patient needs assistance with maintaining standing and unable to tolerate some challenges Atrial fibrillation continued coumadin based on INR (therapeutic range: 2-3) Patient will check INR in [address] Live, PCP Diabetes Patient was maintained on insulin sliding scale. Restarting glipizide at discharge HTN, HLD She was previously on lisinopril for blood pressure control prior to admission which was held throughout the hospital course BP remained well controlled in the 120s and no evidence of tachycardia We'll hold off lisinopril, have her keep a BP log and follow up with her PCP within 7 days Hx of paranoid schizophrenia Confirmed diagnosis with daughter. she is on clozapine 12.5 mg BID for schizophrenia and takes sinemet for parkinsonian side effects. Patient also has history of hospital induced psychosis as the daughter is told by Dr. Live. She becomes confused and agitated and hallucinates when hospitalized. She checks CBC monthly while on clozapine. we continued clozapine and sinemet at home dose. Allergies: Coded Allergies: Opioids - Morphine Analogues (Intermediate, SEVERE NAUSEA/VOMITING 09/19/16) hydromorphone (Intermediate, SEVERE NAUSEA/VOMITING 09/19/16) morphine (Intermediate, VOMITING 09/19/16) Disposition Summary Disposition Principal Diagnosis: Acute on chronic diarrhea Additional Diagnosis: Generalized weakness Discharge Disposition: SNF Discharge Instructions General Discharge Information Code Status: Full Code Patient's Diet: Regular diet Patient's Activity: As tolerated Follow-Up Instructions/Appts: Please follow-up with the PCP within one week after discharge Lisinopril was held at discharge. 18 blood pressure log and have results sent to PCP Follow-up with technology director within 1-2 weeks after discharge for further workup in the setting of chronic diarrhea Medications at Discharge Discharge Medications: Stop taking the following medications: Lisinopril (Lisinopril) 20 MG TABLET ORAL Every Morning Continue taking these medications: Clozapine (Clozaril) 25 MG TABLET 0.5 Tablet ORAL TWICE DAILY Comments: PER PT MED LIST Glipizide (Glipizide XL) 5 MG TAB.ER.24 1 Tablet ORAL Every Morning Comments: PER PT MED LIST Carbidopa/Levodopa (Sinemet 25-100 MG Tablet) 25 MG-100 MG TABLET 0.5 Tablet ORAL THREE TIMES DAILY Comments: PREVIOUSLY NOTED ON CMR PER PT MED LIST Multivitamin (Multiple Vitamins) 1 EACH TABLET 1 Tablet ORAL DAILY Comments: PER PT MED LIST Alprazolam (Alprazolam) 0.5 MG TABLET 1 Tablet ORAL as needed for ANXIETY/SLEEP Comments: PER PT MED LIST Loperamide HCl (Loperamide) 2 MG CAPSULE 1 Capsule ORAL As Directed as needed for DIARRHEA Comments: PER PT MED LIST Cholecalciferol (Vitamin D3) (Vitamin D3) 1,000 UNIT CAPSULE 1 Capsule ORAL TWICE DAILY Comments: PER PT MED LIST Pyridoxine HCl (Vitamin B-6) 100 MG TABLET 1 Tablet ORAL THREE TIMES DAILY Comments: PER PT MED LIST Warfarin Sodium (Coumadin) 3 MG TABLET 1 Tablet ORAL As Directed Comments: MON, TUES, WED, THURS PER PT MED LIST Warfarin Sodium (Coumadin) 4 MG TABLET 1 Tablet ORAL As Directed Comments: FRI, SAT, SUN PER PT MED LIST Simvastatin (Zocor*) 20 MG TABLET 1 Tablet ORAL DAILY Comments: PER PT MED LIST Ondansetron (Zofran Odt) 4 MG TAB.RAPDIS 1 Tablet SUBLINGUAL As Directed as needed for NAUSEA Comments: PER PT MED LIST Cyclobenzaprine HCl (Cyclobenzaprine HCl) 10 MG TABLET 1 Tablet ORAL As Directed as needed for BACK PAIN Comments: PER PT MED LIST Copies To: MARIA T DE GUZMAN,ZO; MARIA T DE GUZMAN,LAZARA A
[2016-09-21 16:00] VITALS: BP 134/64
[2016-09-21 23:50] VITALS: BP 118/66
--- NOTE | 2016-09-22 00:10 | NUR ---
LATE ENTRY PT VERY CONFUSED AND ANXIOUS ASKING "WHEN AM I GOING HOME " "DO I HAVE TO GO TO [facility] AGAIN IN THE MORNING? DO I HAVE COURT IN THE MORNING?" "WHERE IS MY DAUGHTER", REDIRECTED AND GIVEN EMOTIONAL SUPPORT. REORIENTED TO PLACE AND TIME. STATING "THIS WAS A VERY BAD DAY FOR ME" PT STILL SEEMS ANXIOUS, CALL PLACED TO INSTRUMENT MAKER AND REPAIRER FOR ONE TIME ORDER FOR XANAX AT THIS TIME. PO XANAX GIVEN PER ORDER.
--- NOTE | 2016-09-22 05:59 | PN- Housestaff ---
NATTY DE GUZMAN,[facility] 09/22/16 0559: Subjective Follow-up For: diarrhea weakness orthostatic hypotension Subjective: Patient was seen and examined at bedside. She is alert and awake but is not oriented to person time and place. She denies having abdominal pain, nausea vomiting, or any diarrhea. She doesn't report any dizziness. She remembers that her daughter visited her last evening, and she wishes that she goes home today. Review of Systems Constitutional: Denies: chills, fever, weakness. EENTM: Reports: no symptoms. Cardiovascular: Reports: no symptoms. Respiratory: Reports: no symptoms. Gastrointestinal: Denies: diarrhea, nausea, changes in stool, vomiting. Genitourinary: Reports: no symptoms. Musculoskeletal: Reports: no symptoms. Skin: Reports: no symptoms. Objective Last 24 Hrs of Vital Signs/I&O Vital Signs Date Time Temp Pulse Resp B/P Pulse O2 O2 Flow FiO2 Ox Delivery Rate 09/21 2350 97.4 70 18 118/66 93 Room Air 09/21 1600 98.3 72 20 134/64 94 Room Air 09/21 1259 Room Air 09/21 0854 98.5 74 20 138/80 93 Room Air Intake & Output 09/22 0800 09/22 0000 09/21 1600 Intake Total 124 584 7240 Output Total 600 450 800 Balance -480 150 650 Intake, IV 800 Intake, Oral 120 600 650 Output, Urine 600 450 800 Physical Exam General Appearance: Alert, Cooperative, No Acute Distress, not oriented to time, place and person Skin: No Rashes, No Breakdown, No Significant Lesion HEENT: Atraumatic, PERRLA Neck: Supple Cardiovascular: Normal S1, Normal S2 Lungs: Clear to Auscultation, Normal Air Movement Abdomen: Normal Bowel Sounds, Soft, No Tenderness Neurological: Normal Speech, Strength at 5/5 X4 Ext, Normal Tone, Sensation Intact Extremities: No Clubbing, No Cyanosis, No Edema, Normal Pulses Vascular: Normal Pulses, Pulses Symmetrical Current Medications: Current Medications Sig/Mckay Start time Last Medication Dose Route Stop Time Status Admin Acetaminophen 650 MG Q6P PRN 09/19 2229 AC 09/20 PO 0325 Alprazolam 0.5 MG ONCE ONE 09/21 2144 DC 09/21 PO 09/21 Alprazolam 0.5 MG DAILY NEEDED PRN 09/19 2229 AC 09/21 PO 09/26 2229 1007 Atorvastatin Calcium 10 MG 1700 09/20 1700 AC 09/21 PO 1822 Carbidopa/Levodopa 0.5 TAB TID 09/19 2225 AC 09/21 PO 212 Clozapine 12.5 MG BID 09/19 2226 AC 09/21 PO 212 Insulin Aspart 0 TIDAC 09/20 0800 AC 09/21 SC 1851 Nystatin 1 PALLAVI BID 09/20 220 AC 09/21 TOP 2125 Patient Medication 1 ED .STK-MED ONE 09/21 1402 DC Teaching ED 09/21 1403 Sodium Chloride 1,000 ML Q10H 09/19 2229 DC 09/20 IV 2056 Last 24 Hrs of Lab/Yury Results Last 24 Hrs of Labs/Mics: Laboratory Tests 09/22/16 0620: PT Pending, INR Pending, CBC w Diff Pending, WBC Pending, RBC Pending, Hgb Pending, Hct Pending, MCV Pending, MCH Pending, RDW Pending, Plt Count Pending, MPV Pending, PUBS MCHC Pending Microbiology 09/21 812 STOOL: Stool Culture - COLB Assessment/Plan Assessment: Patient is a 86 year old lady with PMH significant for atrial fibrillation on coumadin, complete heart block s/p pacemaker (2012), hypertension, colon cancer s/p right hemicolectomy, Parkinsonian symptoms (patient denies parkinson's disease), diabetes type II, last admitted at [place] in 2014 with ischemic colitis presented with blood per rectum. she came to the ED with 3 days of continuous diarrhea resulting in weakness and poor oral intake. In the ED patient is found to have orthostatic hypotension. Problem list and plan: Diarrhea- resolved No diarrhea reported. No N/V and no abdominal pain. * DC'd fluids, has adequate oral intake, orthostats are negative * f/u stool exam for ova, parasite, WBCs, stool culture, stool toxin for c-diff * f/u Guaiac stool * GI follow up as outpatient weakness generalized, no FNDs. orthostats negative. * PT eval: patient requires STR (needs assistance to maintain standing and can't take challenges) * patient will be discharged to STR today Atrial fibrillation * continue coumadin based on INR (therapeutic range: 2-3) * INR 2.18 in AM, dosed coumadin 4 mg * Patient will check INR in [address] Yoo, PCP Diabetes * held Glipizide, will restart after discharge * acucise TID AC * insulin NS HTN, HLD * continue statin * lisinopril has been hold due to borderline low BP * patient will follow up with Dr. Yoo within 1-2 weeks after discharge regarding restarting lisinopril, INR results and CBC Hx of paranoid schizophrenia Confirmed diagnosis with daughter. she is on clozapine 12.5 mg BID for schizophrenia and takes sinemet for parkinsonian side effects. Patient also has history of hospital induced psychosis as the daughter is told by Dr. Yoo. She becomes confused and agitated and hallucinates when hospitalized. She checks CBC monthly while on clozapine. * we continued clozapine and sinemet at home dose. * Paitent will check CBC in [address] Yoo will be copied Consistent carbohydrate diet 2 DVT px with coumadin FC Problem List: 1. Orthostatic hypotension 2. Diarrhea 3. Parkinsonian features 4. Hyperlipidemia 5. Hypertension Pain Ratin Pain Location: none Pain Goal: Pain 4 or less Pain Plan: mild pain pathway Tomorrow's Labs & Rationales: none RADHA CHARLES 09/22/16 1545: Attending MD Review Statement Attending Statement Attending MD Statement: examined this patient, discuss w/resident/PA/BRAID CUTTER, agreed w/resident/PA/BRAID CUTTER, reviewed EMR data (avail), discussed with nursing, discussed with case mgmt Attending Assessment/Plan: plan is to dc pt today to [facility]. d/w pt the care plan. Will be dced without lisinopril and will f/u with PCp and if bp goes up can be restarted on lisinopril.
[2016-09-22 08:03] LABS: ABSOLUTE BASOPHIL COUNT 0 /CUMM (0.0-0.2); ABSOLUTE EOSINOPHIL COUNT 0.1 /CUMM (0.0-0.7); ABSOLUTE GRANULOCYTE CT 3.3 /CUMM (1.4-6.5); ABSOLUTE LYMPH COUNT 1.6 /CUMM (1.2-3.4); ABSOLUTE MONOCYTE COUNT 0.6 /CUMM (0.10-0.60); BASOPHIL % 0.5 % (0.0-2.0); EOSINOPHIL % 2.6 % (0-5); GRANULOCYTE % 57.8 % (42.2-75.2); HEMATOCRIT 35.8 % (37-47); MEAN CORPUSCULAR HGB 34.1 PG (27.0-31.0); MEAN CORPUSCULAR HGB CONC 33.6 G/DL (33.0-37.0); MEAN CORPUSCULAR VOLUME 101.4 FL (81.0-99.0); MEAN PLATELET VOLUME 9.1 FL (7.4-10.4); PLATELET COUNT 125 /CUMM (130-400); RBC DISTRIBUTION WIDTH 14.1 % (11.5-14.5); RED BLOOD CELL CT 3.54 /CUMM (4.20-5.40); WHITE BLOOD CELL COUNT 5.7 /CUMM (4.8-10.8)
[2016-09-22 08:15] LABS: PT 22.7 SEC (9.4-12.5)
[2016-09-22 08:35] VITALS: BP 120/70
[2016-09-22 14:41] VITALS: BP 120/70
[2016-09-22 15:48] VITALS: BP 120/62
--- NOTE | 2016-09-22 16:09 | NUR ---
PATIENT DISCHARGE IS TO [facility]. REPORT GIVEN TO NURSE AT [facility] AND PATIENT WAS DENIED ACCEPTANCE UNTIL HAS BOWEL MOVEMENT. PATIENT LAST BM ON 09/19. PATIENT WAS GIVEN MIRILAX AT 1121 A.M WITH NO RESULT. GANG MINER AWARE AND DUCOLAX SUP ORDERED. THIS NURSE WENT TO GIVE SUPPOSITORY AND PATIENT REFUSED. SPOKE WITH WOOD AND MD BONILLA. PO COLACE AND SENNA ORDERED AND GIVEN. PATIENT DAUGHTER WANTS DISCHARGE POSTPONE UNTIL TOMORROW. DISCHARGE WAS CANCELLED UNTIL PATIENT HAS RESULT FROM MEDS. PATIENT IS ON WILL CALL FROM [facility]. DAUGHTER AT BEDSIDE AND WANT PATIENT TO STAY UNTIL TOMORROW BECAUSE PATIENT WILL BECOME ANXIOUS IF SHE IS INCONTINENT. MD BONILLA AWARE. WILL FOLLOW.
== END 2016-09-22 19:35 | DRG 392 ==
LOC: ENRESERVDT → ENRESERVTM → ERH 16:46 → 2NB 19:48 → ERHI 19:48 → ENPENDDIS 19:48 → 2NB 21:55
PROVIDERS: Internal Medicine; Ophthalmology; Physician Assistant Medical; ADMIT Internal Medicine
DX: K52.9 Noninfective gastroenteritis and colitis, unspecified (principal); G20 Parkinson's disease; I48.91 Unspecified atrial fibrillation; F20.0 Paranoid schizophrenia; I95.1 Orthostatic hypotension; R19.7 Diarrhea, unspecified; Z79.01 Long term (current) use of anticoagulants; Z85.038 Personal history of other malignant neoplasm of large intestine; Z95.0 Presence of cardiac pacemaker; I10 Essential (primary) hypertension; E11.9 Type 2 diabetes mellitus without complications; Z79.84 Long term (current) use of oral hypoglycemic drugs; F31.9 Bipolar disorder, unspecified; E78.5 Hyperlipidemia, unspecified
CPT/HCPCS: 2NBP; 36415; 74176; 82436; 87045; 90662; 93005; 93010; 96361; 96374; 97110-GO; 97116-GO; 97161-GP; 97530-GO; J2405

== ENCOUNTER 2016-11-15 18:34 | Emergency (ER) | payer OTHER, MEDICARE ==
[~2016-11-15 18:34] MED LIST changes: +COUMADIN3 M1 PO; +COUMADIN4 M1 PO; +CYCLOBENZAPRINE10 M1 PO; +VITAMIN B-6100 M1 PO; +VITAMIN D31000 UNI1 PO; +ZOCOR20 M1 PO; +ZOFRAN ODT4 M1 SL
[2016-11-15 19:05] LABS: ABSOLUTE BASOPHIL COUNT 0 /CUMM (0.0-0.2); ABSOLUTE EOSINOPHIL COUNT 0 /CUMM (0.0-0.7); ABSOLUTE GRANULOCYTE CT 6.8 /CUMM (1.4-6.5); ABSOLUTE LYMPH COUNT 1.7 /CUMM (1.2-3.4); ABSOLUTE MONOCYTE COUNT 0.7 /CUMM (0.10-0.60); BASOPHIL % 0.2 % (0.0-2.0); EOSINOPHIL % 0.1 % (0-5); GRANULOCYTE % 73.8 % (42.2-75.2); HEMATOCRIT 42.1 % (37-47); MEAN CORPUSCULAR HGB 32.6 PG (27.0-31.0); MEAN CORPUSCULAR HGB CONC 32.7 G/DL (33.0-37.0); MEAN CORPUSCULAR VOLUME 99.6 FL (81.0-99.0); MEAN PLATELET VOLUME 9.9 FL (7.4-10.4); PLATELET COUNT 170 /CUMM (130-400); RBC DISTRIBUTION WIDTH 13.5 % (11.5-14.5); RED BLOOD CELL CT 4.23 /CUMM (4.20-5.40); WHITE BLOOD CELL COUNT 9.2 /CUMM (4.8-10.8)
--- NOTE | 2016-11-15 19:17 | ED GI/GU/ABDOMINAL COMPLAINT ---
History of Present Illness General Chief Complaint: Nausea, Vomiting, Diarrhea Stated Complaint: NVD Source: patient, family (DAUGHTER) Exam Limitations: no limitations Allergies Coded Allergies: Opioids - Morphine Analogues (Intermediate, SEVERE NAUSEA/VOMITING 09/19/16) hydromorphone (Intermediate, SEVERE NAUSEA/VOMITING 09/19/16) morphine (Intermediate, VOMITING 09/19/16) Reconcile Medications Alprazolam 0.5 MG TABLET 1 TAB PO PRN ANXIETY/SLEEP (Reported) Carbidopa/Levodopa (Sinemet 25-100 MG Tablet) 25 MG-100 MG TABLET 0.5 TAB PO TID SIDE EFFECTS FROM MEDS (Reported) Cholecalciferol (Vitamin D3) (Vitamin D3) 1,000 UNIT CAPSULE 1 CAP PO BID SUPPLEMENT (Reported) Clozapine (Clozaril) 25 MG TABLET 0.5 TAB PO BID MENTAL HEALTH (Reported) Cyclobenzaprine HCl 10 MG TABLET 1 TAB PO AD PRN BACK PAIN (Reported) Glipizide (Glipizide XL) 5 MG TAB.ER.24 1 TAB PO QAM DM (Reported) Loperamide HCl (Loperamide) 2 MG CAPSULE 1 CAP PO AD PRN DIARRHEA (Reported) Multivitamin (Multiple Vitamins) 1 EACH TABLET 1 TAB PO DAILY SUPPLEMENT ( Reported) Ondansetron (Zofran Odt) 4 MG TAB.RAPDIS 1 TAB SL AD PRN NAUSEA (Reported) Pyridoxine HCl (Vitamin B-6) 100 MG TABLET 1 TAB PO TID SUPPLEMENT (Reported) Simvastatin (Zocor*) 20 MG TABLET 1 TAB PO DAILY CHOLESTEROL (Reported) Warfarin Sodium (Coumadin) 3 MG TABLET 1 TAB PO AD BLOOD THINNER (Reported) Warfarin Sodium (Coumadin) 4 MG TABLET 1 TAB PO AD BLOOD THINNER (Reported) Triage Note: BIBA FROM HOME C/O N/V/D SINCE 0100 WITH INCREASED WEAKNESS/DIZZINESS. PT TOOK ZOFRAN AT HOME AROUND 4PM AND DENIES VOMITING SINCE THAT TIME. DENIES PAIN ON ARRIVAL, C/O "UPSET STOMACH BUT IT'S NOT PAIN." Triage Nurses Notes Reviewed? yes ? N Is pt currently ? No HPI: This patient is an 86-year-old female with a past medical history including Parkinson's disease, chronic diarrhea, GERD, and colorectal cancer who presented to the emergency department today for evaluation of nausea, vomiting, and diarrhea. The patient's daughter reported that she was moving from sitting with abdominal discomfort around 1:30 this morning. The patient, there is no pain, its just sore." She has vomited 5 or 6 times today. The patient's daughter reported that she thought she saw, "coffee ground emesis." Her daughter reported that she'll need her 3 doses of Zofran today. He was supposed to follow up with a health facilities surveyor on November 08, but missed the appointment because her physical therapist stated that she was not strong enough after being discharged from rehabilitation to do stairs. The patient is in remission since 2002 from colon cancer. The patient denied any fevers, chills, chest pain, difficulty breathing, or any other associated symptoms. (SHERIE TORO PA-C) Vital Signs & Intake/Output Vital Signs & Intake/Output Vital Signs Date Time Temp Pulse Resp B/P Pulse O2 O2 Flow FiO2 Ox Delivery Rate 11/15 2314 97.0 68 18 158/77 94 Room Air 11/15 2124 98.9 76 18 136/64 94 Room Air 11/15 1845 18 93 Room Air 11/15 1836 99.7 87 20 117/63 90 Room Air ED Intake and Output 11/16 0000 11/15 1200 Intake Total 0 Output Total Balance 0 Intake, Oral 0 Past History Medical History Any Pertinent Medical History? see below for history Neurological: Parkinson's disease, INTERMITTENT CONFUSION EENT: NONE Cardiovascular: AFIB, hyperlipidemia, COMPLETE HEART BLOCK Respiratory: NONE Gastrointestinal: GERD, CHRONIC DIARRHEA Hepatic: NONE Renal: NONE Musculoskeletal: NONE Psychiatric: bipolar disease Endocrine: diabetes Blood Disorders: NONE Cancer(s): colon/rectal cancer AUTOMATION QTP TESTER/Reproductive: NONE History of MRSA: No History of VRE: No History of CDIFF: No Influenza Vaccine: 05/07/13 Surgical History Surgical History: appendectomy, cholecystectomy, colon resection (hemicolectomy right side 2002), PACEMAKER Psychosocial History Who do you live with Daughter Services at Home None What is your primary language Romanian Family History Family History, If Any: Relation not specified for: FH: coronary artery disease Hx Contributory? No (SHERIE TORO PA-C) Review of Systems Review of Systems Constitutional: Reports: no symptoms. EENTM: Reports: no symptoms. Respiratory: Reports: no symptoms. Cardiovascular: Reports: no symptoms. GI: Reports: see HPI. Genitourinary: Reports: no symptoms. Musculoskeletal: Reports: no symptoms. Skin: Reports: no symptoms. Neurological/Psychological: Reports: no symptoms. All Other Systems: Reviewed and Negative (CORTEZ MUNGUIA,SHERIE) Physical Exam Physical Exam Gastrointestinal: normal bowel sounds, soft, no organomegaly, TENDERNESS TO PALPATION IN THE RUQ WITH NO REBOUND OR GUARDING. NO PERITONEAL SIGNS. NO MCBURNY'S POINT TENDERNESS. NO MASSES. NO HERNIAS Comments: Well-developed well-nourished person in no acute distress HEENT: Normal EENT exam. Head normocephalic, moist mucous membranes Pupils equally round and reactive to light. Neck: Supple, no lymphadenopathy Back: Normal inspection Cardiovascular: Regular rate and rhythm with no murmurs, rubs, or gallops Respiratory: No respiratory distress. Breath sounds clear to auscultation bilaterally Extremity: Normal and equal pulses Neuro: Alert oriented x3, cranial nerves II through XII grossly intact. Skin: No appreciable rash on exposed skin, skin is warm and dry. Psych: Mood and affect is normal Core Measures ACS in differential dx? No Severe Sepsis Present: No Septic Shock Present: No (CORTEZ MUNGUIA,SHERIE) Progress Differential Diagnosis: AAA, AMI, appendicitis, biliary colic, bowel obstruction , colon cancer, cholecystitis, diverticulitis, gastritis, hepatitis, ischemic bowel, inflamm bowel dis, kidney stone, PID/cervicitis, PUD/GERD, perforated viscous, UTI/pyelo Diagnostic Imaging: Viewed by Me: CT Scan. Discussed w/RAD: CT Scan. Radiology Impression: PATIENT: GEORGE NAJERA PRESENT AGE: 86 PATIENT ACCOUNT NO: [id number] : 31 LOCATION: [facility] ORDERING PHYSICIAN: SHERIE TORO PA-C SERVICE DATE: 11/15/16 EXAM TYPE: CAT - CT ABD & PELVIS W IV CONTRAST EXAMINATION: CT ABDOMEN AND PELVIS WITH CONTRAST CLINICAL INFORMATION: Nausea and vomiting. COMPARISON: CT scan abdomen pelvis 09/19/2016 , 02/25/2010 TECHNIQUE: Multidetector volumetric imaging was performed of the abdomen and pelvis before and after the IV administration of 95 mL of Optiray 320 intravenous contrast. Sagittal and coronal reformatted images were obtained on the technologist's workstation. DLP: 429.90 mGy-cm FINDINGS: LUNG BASES: Pacemaker lead at base of heart. Lung bases are clear. No pleural effusion. LIVER, GALLBLADDER, AND BILIARY TREE: Indistinct 3 mm hypodensity anterior left lobe of liver too small to fully characterize. This is unchanged since prior examinations. No suspicious liver lesion. No intrahepatic bile duct dilatation. Gallbladder surgically absent. Chronic dilatation of the extrahepatic CBD unchanged since CAT scan of 02/23/2010. No calcified stone within the bile ducts. PANCREAS: Fatty atrophy of the pancreas. SPLEEN: 1.3 cm cyst at the posterior mid spleen. ADRENAL GLANDS: Unremarkable. KIDNEYS AND URETERS: The kidneys are normal in size, shape, and attenuation. No hydronephrosis, hydroureter, or calculi seen. No perinephric stranding. BLADDER: Unremarkable. GASTROINTESTINAL TRACT: Status post right hemicolectomy. Anastomosis at the splenic flexure intact. No bowel obstruction. No bowel wall thickening or edema. Moderate volume of stool in the colon. Moderate volume of food debris in the proximal small bowel loops which can be due to low motility. There is no acute changes of bowel wall. ABDOMINAL WALL: No significant hernia is appreciated. LYMPH NODES: Normal. VASCULAR: Atherosclerotic vascular wall calcifications of aorta and iliac vessels without aneurysm. PELVIC VISCERA: Uterus is retroverted. Multiple calcified fibroids in uterus. No adnexal abnormality. OSSEOUS STRUCTURES: Multilevel degenerative change of the spine. Disc height narrowing L3-L4 with endplate spurs and vacuum disc phenomenon. Degenerative spondylosis of the thoracic spine with disc height narrowing and endplate spurs. There is a hemangioma at T9 vertebrae. IMPRESSION: No acute change of bowel. Status post right hemicolectomy. Moderate volume of food debris in the proximal small bowel loops can be due to low motility. There is no obstruction or bowel wall thickening. DICTATED BY: CHARANJIT ARAUJO MD DATE/TIME DICTATED:11/15/162056 GENERAL INSPECTOR:BRODY DATE/TIME TRANSCRIBED:2056 CONFIDENTIAL, DO NOT COPY WITHOUT APPROPRIATE AUTHORIZATION. < Electronically signed in Other Vendor System> SIGNED BY: CHARANJIT ARAUJO MD 2110 Initial ED EKG: no ST T wave changes, IRREGULAR RHYTHM, VENTRICULAR PACED Comments: 11/15/2016 9:36:11 PM: I discussed the results of the imaging and laboratory studies of this patient. No increased white blood cell count. H&H is stable. Unremarkable CT scan of the abdomen and pelvis. I discussed this patient and she will likely need to follow up with a GI doctor. I called this patient's daughter who is currently at home and no longer at the bedside. She reported, "I cannot come and get her because my brother is on dialysis and I can't leave him alone." Discussed this patient with Dr. Hicks. In agreement with the plan this patient is stable for discharge with GI follow-up. (CORTEZ MUNGUIA,SHERIE) Plan of Care: Orders Procedure Date/time Status LACTIC ACID 11/15 1953 Complete LIPASE 11/16 1843 Complete DIRECT BILIRUBIN 11/16 1843 Complete AMYLASE 11/16 1843 Complete TROPONIN LEVEL 11/15 1842 Complete COMPREHENSIVE METABOLIC PANEL 11/15 1842 Complete CBC WITHOUT DIFFERENTIAL 11/15 1842 Complete EKG 11/15 1842 Active Laboratory Tests 11/15/16 2254: Lactic Acid Cancelled 11/15/161956: Lactic Acid 2.2 H 11/15/161855: Urine Color Cancelled, Urine Clarity Cancelled, Urine pH Cancelled, Ur Specific [place] Cancelled, Urine Protein Cancelled, Urine Ketones Cancelled, Urine Nitrite Cancelled, Urine Bilirubin Cancelled, Urine Urobilinogen Cancelled, Ur Leukocyte Esterase Cancelled, Ur Microscopic Cancelled, Urine Hemoglobin Cancelled, Urine Glucose Cancelled 11/15/161843: Anion Gap 12, Estimated GFR > 60, BUN/Creatinine Ratio 26.3 H, Glucose 217 H, Calcium 9.8, Total Bilirubin 0.6, Direct Bilirubin 0.3, AST 30, ALT 41, Alkaline Phosphatase 105, Troponin I 0.04, Total Protein 7.1, Albumin 3.9, Globulin 3.2, Albumin/Globulin Ratio 1.2, Amylase 86, Lipase 312 H, CBC w Diff NO MAN DIFF REQ, RBC 4.23, MCV 99.6 H, MCH 32.6 H, RDW 13.5, MPV 9.9, Gran % 73.8, Lymphocytes % 18.0 L, Monocytes % 7.9, Eosinophils % 0.1, Basophils % 0.2, Absolute Granulocytes 6.8 H, Absolute Lymphocytes 1.7, Absolute Monocytes 0.7 H, Absolute Eosinophils 0, Absolute Basophils 0, PUBS MCHC 32.7 L Microbiology 11/16 1907 STOOL: Clostridium difficile Toxin A & B - CAN Cancelled: Cancelled via OE: UNABLE TO PROVIDE SAMPLE Departure Departure Disposition: HOME OR SELF CARE Condition: Stable Clinical Impression Primary Impression: Nausea and vomiting Qualifiers: Vomiting type: unspecified Vomiting Intractability: non-intractable Qualified Code: R11.2 - Nausea with vomiting, unspecified Referrals: MARIA T DE GUZMAN,LAZARA Anderson (PCP/Family) OREN DE GUZMAN,EVA Cannon Additional Instructions: Please follow-up with your primary care physician. Be sure to stay hydrated. Take previously prescribed medications as directed. Return for any worsening symptoms or concerns. Please follow-up with the health facilities surveyor's information has been provided to you in this packet. Departure Forms: Customer Survey General Discharge Information (CORTEZ MUNGUIA,SHERIE) PA/VINYL FLOORING INSTALLER Co-Sign Statement Statement: ED Attending supervision documentation- [X] I saw and evaluated the patient. I have also reviewed all the pertinent lab results and diagnostic results. I agree with the findings and the plan of care as documented in the PA's/VINYL FLOORING INSTALLER's documentation. [X] I have reviewed the ED Record and agree with the PA's/VINYL FLOORING INSTALLER's documentation. [] Additions or exceptions (if any) to the PAs/VINYL FLOORING INSTALLER's note and plan are summarized below: [] (JESSICA DE GUZMAN,EDWARD Baires)
--- NOTE | 2016-11-15 21:11 | CT SCAN REPORT ---
EXAMINATION: CT ABDOMEN AND PELVIS WITH CONTRAST CLINICAL INFORMATION: Nausea and vomiting. COMPARISON: CT scan abdomen pelvis 09/19/2016 , 02/25/2010 TECHNIQUE: Multidetector volumetric imaging was performed of the abdomen and pelvis before and after the IV administration of 95 mL of Optiray 320 intravenous contrast. Sagittal and coronal reformatted images were obtained on the technologist's workstation. DLP: 429.90 mGy-cm FINDINGS: LUNG BASES: Pacemaker lead at base of heart. Lung bases are clear. No pleural effusion. LIVER, GALLBLADDER, AND BILIARY TREE: Indistinct 3 mm hypodensity anterior left lobe of liver too small to fully characterize. This is unchanged since prior examinations. No suspicious liver lesion. No intrahepatic bile duct dilatation. Gallbladder surgically absent. Chronic dilatation of the extrahepatic CBD unchanged since CAT scan of 02/23/2010. No calcified stone within the bile ducts. PANCREAS: Fatty atrophy of the pancreas. SPLEEN: 1.3 cm cyst at the posterior mid spleen. ADRENAL GLANDS: Unremarkable. KIDNEYS AND URETERS: The kidneys are normal in size, shape, and attenuation. No hydronephrosis, hydroureter, or calculi seen. No perinephric stranding. BLADDER: Unremarkable. GASTROINTESTINAL TRACT: Status post right hemicolectomy. Anastomosis at the splenic flexure intact. No bowel obstruction. No bowel wall thickening or edema. Moderate volume of stool in the colon. Moderate volume of food debris in the proximal small bowel loops which can be due to low motility. There is no acute changes of bowel wall. ABDOMINAL WALL: No significant hernia is appreciated. LYMPH NODES: Normal. VASCULAR: Atherosclerotic vascular wall calcifications of aorta and iliac vessels without aneurysm. PELVIC VISCERA: Uterus is retroverted. Multiple calcified fibroids in uterus. No adnexal abnormality. OSSEOUS STRUCTURES: Multilevel degenerative change of the spine. Disc height narrowing L3-L4 with endplate spurs and vacuum disc phenomenon. Degenerative spondylosis of the thoracic spine with disc height narrowing and endplate spurs. There is a hemangioma at T9 vertebrae. IMPRESSION: No acute change of bowel. Status post right hemicolectomy. Moderate volume of food debris in the proximal small bowel loops can be due to low motility. There is no obstruction or bowel wall thickening.
[2016-11-15 23:14] VITALS: BP 158/77
== END 2016-11-15 23:21 ==
LOC: ERH 18:34
PROVIDERS: Emergency Medicine
DX: R11.2 Nausea with vomiting, unspecified (principal); R10.9 Unspecified abdominal pain
CPT/HCPCS: 74177; 87045; 93005; 93010

== ENCOUNTER 2016-11-17 17:58 | Emergency (ER) | payer OTHER, MEDICARE ==
--- NOTE | 2016-11-17 18:07 | ED GI/GU/ABDOMINAL COMPLAINT ---
History of Present Illness General Chief Complaint: Nausea, Vomiting, Diarrhea Stated Complaint: BIBA FOR VOMITING X DAYS Source: patient, family, old records Exam Limitations: poor historian Allergies Coded Allergies: Opioids - Morphine Analogues (Intermediate, SEVERE NAUSEA/VOMITING 09/19/16) hydromorphone (Intermediate, SEVERE NAUSEA/VOMITING 09/19/16) morphine (Intermediate, VOMITING 09/19/16) Reconcile Medications Alprazolam 0.5 MG TABLET 1 TAB PO PRN ANXIETY/SLEEP (Reported) Carbidopa/Levodopa (Sinemet 25-100 MG Tablet) 25 MG-100 MG TABLET 0.5 TAB PO TID SIDE EFFECTS FROM MEDS (Reported) Cholecalciferol (Vitamin D3) (Vitamin D3) 1,000 UNIT CAPSULE 1 CAP PO BID SUPPLEMENT (Reported) Clozapine (Clozaril) 25 MG TABLET 0.5 TAB PO BID MENTAL HEALTH (Reported) Cyclobenzaprine HCl 10 MG TABLET 1 TAB PO AD PRN BACK PAIN (Reported) Glipizide (Glipizide XL) 5 MG TAB.ER.24 1 TAB PO QAM DM (Reported) Loperamide HCl (Loperamide) 2 MG CAPSULE 1 CAP PO AD PRN DIARRHEA (Reported) Metoclopramide HCl (Reglan) 10 MG TABLET 1 TAB PO 4 TIMES/DAY n/v 30 minutes before meals and bedtime Multivitamin (Multiple Vitamins) 1 EACH TABLET 1 TAB PO DAILY SUPPLEMENT ( Reported) Ondansetron (Zofran Odt) 4 MG TAB.RAPDIS 1 TAB SL AD PRN NAUSEA (Reported) Pyridoxine HCl (Vitamin B-6) 100 MG TABLET 1 TAB PO TID SUPPLEMENT (Reported) Simvastatin (Zocor*) 20 MG TABLET 1 TAB PO DAILY CHOLESTEROL (Reported) Warfarin Sodium (Coumadin) 3 MG TABLET 1 TAB PO AD BLOOD THINNER (Reported) Warfarin Sodium (Coumadin) 4 MG TABLET 1 TAB PO AD BLOOD THINNER (Reported) Triage Nurses Notes Reviewed? yes ? n Is pt currently ? No HPI: Patient is an 86-year-old female presents complaining of nausea, vomiting, weakness. Symptoms onset 2 days ago. Patient's daughter reports symptoms onset approximately 3 days ago with at least 6-7 episodes of vomiting daily, no episodes of diarrhea. Patient was seen in the emergency department 2 days ago for similar complaint, had labs, CT scan, was administered IV fluids, antinausea medicine and was discharged home. Patient is been taking Zofran at home with no improvement. Generalized weakness is moderate to severe. Pain is 0 out of 10. Associated burning sensation in the epigastric to midsternal area. Patient denies abdominal pain, hematemesis, hematochezia, fevers. (KENNETH MATOS) Vital Signs & Intake/Output Vital Signs & Intake/Output Vital Signs Date Time Temp Pulse Resp B/P Pulse O2 O2 Flow FiO2 Ox Delivery Rate 11/18 0620 95.9 53 18 102/52 98 Room Air 11/18 0301 96.1 56 18 95 Room Air 11/17 1805 68 19 123/80 91 Room Air ED Intake and Output 11/18 0000 11/17 1200 Intake Total 1000 Output Total Balance 1000 Intake, IV 1000 Past History Travel History Traveled to [place] past 21 day No Medical History Any Pertinent Medical History? see below for history Neurological: Parkinson's disease, INTERMITTENT CONFUSION EENT: NONE Cardiovascular: AFIB, hyperlipidemia, COMPLETE HEART BLOCK Respiratory: NONE Gastrointestinal: GERD, CHRONIC DIARRHEA Hepatic: NONE Renal: NONE Musculoskeletal: NONE Psychiatric: bipolar disease Endocrine: diabetes Blood Disorders: NONE Cancer(s): colon/rectal cancer COMMODITIES BROKER/Reproductive: NONE History of MRSA: No History of VRE: No History of CDIFF: No Influenza Vaccine: 05/07/13 Surgical History Surgical History: appendectomy, cholecystectomy, colon resection (hemicolectomy right side 2002), PACEMAKER Psychosocial History Who do you live with Daughter Services at Home None What is your primary language Ugandan Family History Family History, If Any: Relation not specified for: FH: coronary artery disease Hx Contributory? No (KENNETH MATOS) Review of Systems Review of Systems Constitutional: Reports: malaise, weakness. Denies: chills, fever. EENTM: Reports: no symptoms. Respiratory: Denies: cough, short of breath. Cardiovascular: Denies: chest pain. GI: Reports: see HPI. Genitourinary: Reports: no symptoms. Musculoskeletal: Reports: no symptoms. Skin: Reports: no symptoms. Neurological/Psychological: Reports: no symptoms. Hematologic/Endocrine: Reports: no symptoms. Immunologic/Allergic: Reports: no symptoms. (KENNETH MATOS) Physical Exam Physical Exam General Appearance: alert, awake Head: atraumatic, normal appearance Eyes: Bilateral: normal appearance, PERRL, EOMI. Ears, Nose, Throat, Mouth: mildly dry mucous membranes Neck: normal inspection, supple, full range of motion Respiratory: normal breath sounds, chest non-tender, no respiratory distress, lungs clear Cardiovascular: regular rate/rhythm Gastrointestinal: normal bowel sounds, soft, non-tender, no rebound, rigidity, or guarding Back: normal inspection, normal range of motion Extremities: normal range of motion Neurologic/Psych: no motor/sensory deficits, awake, alert, oriented x 3, normal mood/affect Skin: intact, normal color, warm/dry Core Measures ACS in differential dx? Yes ASA ordered for poss ACS? No-ACS ruled out Severe Sepsis Present: No Septic Shock Present: No (KENNETH MATOS) Progress Differential Diagnosis: sbo, intra-abdominal infection, ACS, uti, electrolyte abnormality, sepsis Initial ED EKG: ventricular paced rhythm, A. fib, no acute changes from previous EKG Prior EKG: unchanged Hand-Off Endorsed To: ARIA CÁRDENAS MD Endorsed Time: 2019 Pending: other (iv hydration, PO challenge) (KENNETH MATOS) Plan of Care: Orders Procedure Date/time Status PROTHROMBIN TIME 11/178 Complete Add-on Test (ER Only) 11/17 1850 Active Add-on Test (ER Only) 11/17 1833 Active FingerStick- Glucose 11/17 1814 Active TROPONIN LEVEL 11/17 181 Complete LACTIC ACID 11/17 181 Complete COMPREHENSIVE METABOLIC PANEL 11/17 181 Complete CBC WITHOUT DIFFERENTIAL 11/17 1813 Complete EKG 11/17 1813 Active Laboratory Tests 11/17/16 2114: Lactic Acid Cancelled 11/17/16 1908: PT 19.5 H, INR 1.87 H 11/17/16 1840: Anion Gap 12, Estimated GFR 60, BUN/Creatinine Ratio 25.6 H, Glucose 232 H, Lactic Acid 2.0, Calcium 9.5, Total Bilirubin 1.0, AST 29, ALT 36, Alkaline Phosphatase 88, Troponin I 0.08, Total Protein 7.0, Albumin 3.9, Globulin 3.1, Albumin/Globulin Ratio 1.3, CBC w Diff NO MAN DIFF REQ, RBC 4.13 L, MCV 98.4, MCH 32.8 H, RDW 13.4, MPV 9.8, Gran % 80.5 H, Lymphocytes % 12.2 L, Monocytes % 7.1, Eosinophils % 0, Basophils % 0.2, Absolute Granulocytes 6.9 H, Absolute Lymphocytes 1.0 L, Absolute Monocytes 0.6, Absolute Eosinophils 0, Absolute Basophils 0, PUBS MCHC 33.3 11/17/16 1814: Urine Color Cancelled, Urine Clarity Cancelled, Urine pH Cancelled, Ur Specific [place] Cancelled, Urine Protein Cancelled, Urine Ketones Cancelled, Urine Nitrite Cancelled, Urine Bilirubin Cancelled, Urine Urobilinogen Cancelled, Ur Leukocyte Esterase Cancelled, Ur Microscopic Cancelled, Urine Hemoglobin Cancelled, Urine Glucose Cancelled Discussed with Dr. Cárdenas 11/17/2016 7:28:41 PM: Patient reports nausea improved. Will have patient attempt to drink water. (KENNETH MATOS) Comments: Tolerates crackers. Daughter cannot draft roller picker mother due to ill child at home. (ARIA CÁRDENAS MD) Departure Departure Condition: Stable Referrals: MARIA T DE GUZMAN,LAZARA Anderson (PCP/Family) Departure Forms: Customer Survey General Discharge Information (KENNETH MATOS) Departure Time of Disposition: 621 Disposition: HOME OR SELF CARE Clinical Impression Primary Impression: Nausea and vomiting Secondary Impressions: Dehydration syndrome Additional Instructions: Clear liquids in small amounts for 12-24 hours until better Prescriptions: Current Visit Scripts Metoclopramide HCl (Reglan) 1 TAB PO 4 TIMES/DAY #30 TAB 30 minutes before meals and bedtime PA/SELF PROPELLED HOT MIX ROLLER OPERATOR Co-Sign Statement Statement: ED Attending supervision documentation- x I saw and evaluated the patient. I have also reviewed all the pertinent lab results and diagnostic results. I agree with the findings and the plan of care as documented in the PA's/SELF PROPELLED HOT MIX ROLLER OPERATOR's documentation. [] I have reviewed the ED Record and agree with the PA's/SELF PROPELLED HOT MIX ROLLER OPERATOR's documentation. [] Additions or exceptions (if any) to the PAs/SELF PROPELLED HOT MIX ROLLER OPERATOR's note and plan are summarized below: [] (ARIA CÁRDENAS MD)
[2016-11-17 19:01] LABS: ABSOLUTE BASOPHIL COUNT 0 /CUMM (0.0-0.2); ABSOLUTE EOSINOPHIL COUNT 0 /CUMM (0.0-0.7); ABSOLUTE GRANULOCYTE CT 6.9 /CUMM (1.4-6.5); ABSOLUTE MONOCYTE COUNT 0.6 /CUMM (0.10-0.60); BASOPHIL % 0.2 % (0.0-2.0); EOSINOPHIL % 0 % (0-5); GRANULOCYTE % 80.5 % (42.2-75.2); HEMATOCRIT 40.7 % (37-47); MEAN CORPUSCULAR HGB 32.8 PG (27.0-31.0); MEAN CORPUSCULAR HGB CONC 33.3 G/DL (33.0-37.0); MEAN CORPUSCULAR VOLUME 98.4 FL (81.0-99.0); MEAN PLATELET VOLUME 9.8 FL (7.4-10.4); PLATELET COUNT 168 /CUMM (130-400); RBC DISTRIBUTION WIDTH 13.4 % (11.5-14.5); RED BLOOD CELL CT 4.13 /CUMM (4.20-5.40); WHITE BLOOD CELL COUNT 8.5 /CUMM (4.8-10.8)
[2016-11-17 19:25] LABS: PT 19.5 SEC (9.4-12.5)
[2016-11-18 06:20] VITALS: BP 102/52
[2016-11-18] MEDS ORDERED: REGLAN10 M1 PO (06:23)
== END 2016-11-18 07:34 ==
LOC: ERH 17:58
PROVIDERS: Physician Assistant
DX: E86.0 Dehydration (principal); R11.2 Nausea with vomiting, unspecified; Z79.01 Long term (current) use of anticoagulants
CPT/HCPCS: 93005; 93010; 96374; 96375; J1815; J2405

== ENCOUNTER 2016-11-26 23:16 | Observation (INO) | payer OTHER, MEDICARE ==
[~2016-11-26] VITALS: Ht 144.8 cm; Wt 81.6 kg
[~2016-11-26 23:16] MED LIST changes: +REGLAN10 M1 PO
--- NOTE | 2016-11-26 23:24 | NUR ---
PT BIBA FROM HOME. PER EMS, PT HAS BEEN EXPERIENCING N/V ALL DAY. PT STATES 5 BOUTS OF VOMITTING. PER PT, SHE WAS HERE 2 WEEKS AGO FOR N/V AND DEHYDRATION. PT WAS SENT HOME WITH ZOFRAN, BUT SHE STATES SHE HAS NOT BEEN ABLE TO TAKE THE ZOFRAN TODAY BC IT HAS NOT BEEN ABLE TO STAY DOWN. PT ARRIVES TO ED ALERT AND ORIENTED. HX OF AFIB AND NON-INSULIN DEPENDENT DM.
--- NOTE | 2016-11-26 23:27 | NUR ---
CHANGED INTO [facility]. PT WITHOUT INCREASE IN SOB WITH EXERTION.
--- NOTE | 2016-11-26 23:34 | ED GI/GU/ABDOMINAL COMPLAINT ---
History of Present Illness General Chief Complaint: Nausea, Vomiting, Diarrhea Stated Complaint: VOMITING Source: patient, family, old records, EMS Exam Limitations: no limitations Allergies Coded Allergies: Opioids - Morphine Analogues (Intermediate, SEVERE NAUSEA/VOMITING 09/19/16) hydromorphone (Intermediate, SEVERE NAUSEA/VOMITING 09/19/16) morphine (Intermediate, VOMITING 09/19/16) Reconcile Medications Alprazolam 0.5 MG TABLET 1 TAB PO PRN ANXIETY/SLEEP (Reported) Carbidopa/Levodopa (Sinemet 25-100 MG Tablet) 25 MG-100 MG TABLET 0.5 TAB PO TID SIDE EFFECTS FROM MEDS (Reported) Cholecalciferol (Vitamin D3) (Vitamin D3) 1,000 UNIT CAPSULE 1 CAP PO BID SUPPLEMENT (Reported) Clozapine (Clozaril) 25 MG TABLET 0.5 TAB PO BID MENTAL HEALTH (Reported) Cyclobenzaprine HCl 10 MG TABLET 1 TAB PO AD PRN BACK PAIN (Reported) Glipizide (Glipizide XL) 5 MG TAB.ER.24 1 TAB PO QAM DM (Reported) Loperamide HCl (Loperamide) 2 MG CAPSULE 1 CAP PO AD PRN DIARRHEA (Reported) Metoclopramide HCl (Reglan) 10 MG TABLET 1 TAB PO 4 TIMES/DAY n/v 30 minutes before meals and bedtime Multivitamin (Multiple Vitamins) 1 EACH TABLET 1 TAB PO DAILY SUPPLEMENT ( Reported) Ondansetron (Zofran Odt) 4 MG TAB.RAPDIS 1 TAB SL AD PRN NAUSEA (Reported) Pyridoxine HCl (Vitamin B-6) 100 MG TABLET 1 TAB PO TID SUPPLEMENT (Reported) Simvastatin (Zocor*) 20 MG TABLET 1 TAB PO DAILY CHOLESTEROL (Reported) Warfarin Sodium (Coumadin) 3 MG TABLET 1 TAB PO AD BLOOD THINNER (Reported) Warfarin Sodium (Coumadin) 4 MG TABLET 1 TAB PO AD BLOOD THINNER (Reported) Triage Note: PT BIBA FROM HOME. PER EMS, PT HAS BEEN EXPERIENCING N/V ALL DAY. PT STATES 5 BOUTS OF VOMITTING. PER PT, SHE WAS HERE 2 WEEKS AGO FOR N/V AND DEHYDRATION. PT WAS SENT HOME WITH ZOFRAN, BUT SHE STATES SHE HAS NOT BEEN ABLE TO TAKE THE ZOFRAN TODAY BC IT HAS NOT BEEN ABLE TO STAY DOWN. PT ARRIVES TO ED ALERT AND ORIENTED. HX OF AFIB AND NON-INSULIN DEPENDENT DM. Triage Nurses Notes Reviewed? yes ? N Is pt currently ? No Onset: Abrupt Duration: week(s):, intermittent Timing: recent history Quality/Severity: moderate, severe Location: generalized abdomen No Modifying Factors: none HPI: 86-YEAR-OLD FEMALE COMES INTO EMERGENCY ROOM FOR FURTHER EVALUATION OF NAUSEA VOMITING HAS BEEN GOING ON FOR THE PAST COUPLE WEEKS INTERMITTENTLY WORSE OVER THE PAST COUPLE DAYS. Patient vomited over 10 times tonight. Patient has a history of C. difficile. Patient denies any chest pain shortness of breath. There is no increased confusion. Patient is at her normal baseline of mentation. She has not been drinking lots of fluids. Her Zofran and Compazine at home have not been helping with the vomiting. She denies any abdominal pain. Denies any current loose stools or diarrhea. Denies any other associated symptoms. (CAMILLA MANZO) Vital Signs & Intake/Output Vital Signs & Intake/Output Vital Signs Date Time Temp Pulse Resp B/P B/P Pulse O2 O2 Flow FiO2 Mean Ox Delivery Rate 11/26 2324 97.1 85 18 93/58 96 Room Air ED Intake and Output 11/27 0000 11/26 1200 Intake Total Output Total Balance Patient 180 lb Weight Weight Estimated Measurement Method Past History Travel History Traveled to [place] past 21 day No Medical History Any Pertinent Medical History? see below for history Neurological: Parkinson's disease, INTERMITTENT CONFUSION EENT: NONE Cardiovascular: AFIB, hyperlipidemia, COMPLETE HEART BLOCK Respiratory: NONE Gastrointestinal: GERD, CHRONIC DIARRHEA Hepatic: NONE Renal: NONE Musculoskeletal: NONE Psychiatric: bipolar disease Endocrine: diabetes Blood Disorders: NONE Cancer(s): colon/rectal cancer USED [employer]/Reproductive: NONE History of MRSA: No History of VRE: No History of CDIFF: No Surgical History Surgical History: appendectomy, cholecystectomy, colon resection (hemicolectomy right side 2002), PACEMAKER Psychosocial History Who do you live with Daughter Services at Home None What is your primary language Latvian Tobacco Use: Never used Family History Family History, If Any: Relation not specified for: FH: coronary artery disease Hx Contributory? No (CAMILLA MANZO) Review of Systems Review of Systems Constitutional: Reports: see HPI. EENTM: Reports: no symptoms. Respiratory: Reports: no symptoms. Cardiovascular: Reports: no symptoms. GI: Reports: see HPI. Genitourinary: Reports: no symptoms. Musculoskeletal: Reports: no symptoms. Skin: Reports: no symptoms. Neurological/Psychological: Reports: no symptoms. Hematologic/Endocrine: Reports: no symptoms. Immunologic/Allergic: Reports: no symptoms. All Other Systems: Reviewed and Negative (CAMILLA MANZO) Physical Exam Physical Exam General Appearance: alert, awake, mild distress Head: atraumatic Eyes: Bilateral: normal appearance. Ears, Nose, Throat, Mouth: hearing grossly normal, moist mucous membrane Neck: normal inspection, full range of motion Respiratory: normal breath sounds, no respiratory distress Cardiovascular: regular rate/rhythm Gastrointestinal: soft Back: normal inspection Extremities: normal range of motion Neurologic/Psych: awake, alert, oriented x 3, normal gait, normal mood/affect Skin: intact, normal color Core Measures ACS in differential dx? No Severe Sepsis Present: No Septic Shock Present: No (CAMILLA MANZO) Progress Differential Diagnosis: appendicitis, biliary colic, bowel obstruction, cholecystitis, diverticulitis, ectopic , gastritis, hepatitis, hernia, ischemic bowel, inflamm bowel dis, kidney stone, pancreatitis, peptic ulcer, PUD /GERD, perforated viscous, UTI/pyelo Plan of Care: Orders Procedure Date/time Status Nothing by Mouth 11/27 B Active TROPONIN LEVEL 11/27 1200 Active TROPONIN LEVEL 11/27 0600 Active PROTHROMBIN TIME 11/27 0600 Active LIPID PANEL 11/27 0600 Active CBC WITHOUT DIFFERENTIAL 11/27 0600 Active BASIC ELECTROLYTES PLUS BUN&CR 11/27 0600 Active EKG 11/27 0600 Active LACTIC ACID 11/27 0228 Active Pathway - chart 11/27 0126 Active Intake & Output 11/27 0103 Active Patient Data 11/[address] in observation 11/27 0044 Active Patient Data 11/27 0044 Active Code Status 11/27 0044 Active Loja, Insertion/Removal/Asses 11/27 0011 Active CULTURE,URINE 11/27 0011 Active Pathway - chart 11/27 UNK Active House Staff 11/27 UNK Active Lab Add-on Test 11/27 UNK Active VTE Mechanical Prophylaxis 11/27 UNK Active Vital Signs 11/27 UNK Active Intake & Output 11/27 UNK Active FingerStick- Glucose 11/27 UNK Active ECHOCARDIOGRAM 11/27 UNK Active PROTHROMBIN TIME 11/26 2331 Complete URINALYSIS 11/26 2328 Active TROPONIN LEVEL 04/22 2328 Complete LIPASE 11/27 2327 Complete LACTIC ACID 11/27 2327 Complete COMPREHENSIVE METABOLIC PANEL 11/27 2327 Complete CBC WITHOUT DIFFERENTIAL 11/27 2327 Complete AMYLASE 11/27 2327 Complete EKG 11/27 2319 Active Current Medications Sig/Mckay Start time Last Medication Dose Stop Time Status Admin Acetaminophen 650 MG Q6P PRN 11/27 129 UNVr (Tylenol) Acetaminophen 1,000 MG Q6P PRN 11/27 129 UNVr (Ofirmev) Ondansetron HCl 4 MG Q6P PRN 11/27 129 UNVr (Zofran) Aspirin 325 MG ONCE ONE 11/27 0115 CAN (Aspirin) 11/27 0116 Sodium Chloride 1,000 ML ONCE ONE 11/27 0045 AC (Normal Saline 0.9%) 11/27 0844 Sodium Chloride 1,000 ML ONCE ONE 11/26 2344 AC 11/26 (Normal Saline 0.9%) 11/27 0624 2342 Laboratory Tests 11/27/16 0008: Urine Color Pending, Urine Clarity Pending, Urine pH Pending, Ur Specific Shiner Pending, Urine Protein Pending, Urine Ketones Pending, Urine Nitrite Pending, Urine Bilirubin Pending, Urine Urobilinogen Pending, Ur Leukocyte Esterase Pending, Ur Microscopic SEDIMENT EXAMINED, Urine RBC Pending, Urine Hemoglobin Pending, Urine Glucose Pending 11/26/162339: Anion Gap 14, Estimated GFR 53 L, BUN/Creatinine Ratio 21.0, Glucose 215 H, Lactic Acid 1.8, Calcium 8.9, Total Bilirubin 0.8, AST 25, ALT 44, Alkaline Phosphatase 89, Troponin I 0.12 *H, Total Protein 6.8, Albumin 3.7, Globulin 3.1 , Albumin/Globulin Ratio 1.2, Amylase 49, Lipase 50, PT 18.3 H, INR 1.75 H, CBC w Diff NO MAN DIFF REQ, RBC 4.07 L, MCV 98.0, MCH 33.0 H, RDW 13.2, MPV 10.0, Gran % 78.3 H, Lymphocytes % 12.1 L, Monocytes % 9.4 H, Eosinophils % 0 , Basophils % 0.2, Absolute Granulocytes 8.5 H, Absolute Lymphocytes 1.3, Absolute Monocytes 1.0 H, Absolute Eosinophils 0, Absolute Basophils 0, PUBS MCHC 33.7 Microbiology 11/28 7 URINE ROUT: Urine Culture - RECD 11/27 2327 URINE ROUT: Urine Culture - CAN Cancelled: DUPLICATE COLLECTED AT 0008 ON 11/27/16 Initial ED EKG: rate (88), pacemaker rhythm Hand-Off Endorsed To: EDWARD LOPEZ MD Endorsed Time: 49 Pending: other Comments: 11/27/2016 12:50:50 AM Patient signout to Dr. Lopez. Patient will be placed in ED observation for further evaluation. Patient may require admission tomorrow for symptoms don't improve. Patient will require a oral liquid challenge. All questions addressed with patient and family member. Patient understands and agrees with plan of care. (CAMILLA MANZO) Departure Departure Disposition: STILL A PATIENT Condition: Stable Clinical Impression Primary Impression: Intractable vomiting Referrals: LAZARA LIVE MD (PCP/Family) Departure Forms: Customer Survey General Discharge Information (CAMILLA MANZO) PA/SCIENTIFIC INVESTIGATOR Co-Sign Statement Statement: ED Attending supervision documentation- [X] I saw and evaluated the patient. I have also reviewed all the pertinent lab results and diagnostic results. I agree with the findings and the plan of care as documented in the PA's/SCIENTIFIC INVESTIGATOR's documentation. [X] I have reviewed the ED Record and agree with the PA's/SCIENTIFIC INVESTIGATOR's documentation. [] Additions or exceptions (if any) to the PAs/SCIENTIFIC INVESTIGATOR's note and plan are summarized below: [] (EDWARD LOPEZ MD) ED Attending Observation Initial Observation Note: I have seen and personally examined GEORGE NAJERA on 11/27/16 at 0044. I agree with the current emergency department documentation. The disposition (admission or discharge) is uncertain at this time, she needs a period of observation for the following reason(s): [Patient to be placed in ED for intractable vomiting. We'll hydrate the patient overnight as well as give her IV antiemetics. Patient will be given a clear liquid diet in the morning. If she can tolerate the clear liquids she will be discharged home if she can't then she will be admitted.] The ED Nurse caring for this patient has been personally informed as to what the patient is being observed for. Observation Re-Evaluation: I have reevaluated GEORGE NAJERA on 11/27/16 at 0111. The physical findings that support the continued need to observe this patient include [patient she point came back slightly elevated so the patient will be made an inpatient options for cardiology consultation.]. (JESSICA DE GUZMAN,EDWARD Baires)
--- NOTE | 2016-11-26 23:55 | NUR ---
LABS DRAWN AND SENT.
[2016-11-27 00:19] LABS: ABSOLUTE BASOPHIL COUNT 0 /CUMM (0.0-0.2); ABSOLUTE EOSINOPHIL COUNT 0 /CUMM (0.0-0.7); ABSOLUTE GRANULOCYTE CT 8.5 /CUMM (1.4-6.5); ABSOLUTE LYMPH COUNT 1.3 /CUMM (1.2-3.4); BASOPHIL % 0.2 % (0.0-2.0); EOSINOPHIL % 0 % (0-5); GRANULOCYTE % 78.3 % (42.2-75.2); HEMATOCRIT 39.8 % (37-47); MEAN CORPUSCULAR HGB CONC 33.7 G/DL (33.0-37.0); PLATELET COUNT 195 /CUMM (130-400); RBC DISTRIBUTION WIDTH 13.2 % (11.5-14.5); RED BLOOD CELL CT 4.07 /CUMM (4.20-5.40); WHITE BLOOD CELL COUNT 10.8 /CUMM (4.8-10.8)
--- NOTE | 2016-11-27 00:20 | NUR ---
UNABLE TO DO ADMISSION, PT CONFUSED AND FAMILY NOT AT BEDSIDE,
[2016-11-27 00:22] LABS: PT 18.3 SEC (9.4-12.5)
--- NOTE | 2016-11-27 01:02 | NUR ---
REMAINS PALE. NO FURTHER VOMITING . REPEAT BP 102/58 MANUALLY.
--- NOTE | 2016-11-27 01:09 | NUR ---
CRITICAL TEST RESULTS [id number] GEORGE NAJERA 86 F TESTS AND RESULTS: TROP 0.14 Results received and read back by: LEATHA FLORES Results received date and time: 11/27/16 0241 The following provider was notified of the results, and read the results back: DR LOPEZ/CAMILLA JACK Notified date and time: 11/27/16 at 0110
--- NOTE | 2016-11-27 01:22 | History & Physical ---
PATRICE FRAGA 11/27/16 0119: General Information and HPI MD Statement: I have seen and personally examined GEORGE NAJERA and documented this H&P. The patient is a 86 year old F who presented with a patient stated chief complaint of [intractable nausea and vomiting]. Source of Information: patient, family Exam Limitations: clinical condition, poor historian History of Present Illness: 86-year-old female with a past medical history of anxiety, Parkinson's, non- insulin-dependent diabetes mellitus, history of C. difficile, atrial fibrillation on Coumadin, hyperlipidemia, complete heart block status post post permanent pacemaker in 2012, history of colon cancer status post right hemicolectomy , history of chronic diarrhea, presented to the ER with chief complaints of intractable nausea and vomiting that has been going on for the past 2 weeks. Patient is a poor historian and so history is obtained from her daughter Pau. According to the patient's daughter Ms. Olmedo was recently seen in the ER on November 15 and complains of vomiting. At that time workup was negative and she was discharged home with Zofran. She had been doing well up until yesterday morning when she started to have episodes in numerous amounts of vomiting. This was also accompanied by generalized weakness to the point where the daughter had to call the ambulance and bring her to the ER. According to Pau, less than 10 has not been able to tolerate sips of water or rajeev royce for even the tiniest amount of time. There is no history of hematemesis, fever, chills, chest discomfort, shortness of breath, palpitations, headache, dizziness. There is no history of diarrhea. Of note she has been going to the bathroom more often and has been complaining of heartburn recently. She was on Nexium and was taken off of it by Dr. Live back in August because of chronic diarrhea. Of note she is pretty much independent in terms of her ADLs and uses a walker for ambulation. Past history is significant for her being on Seroquel and Abilify that cause tardive dyskinesia with loss of ability to swallow and she's had a feeding tube in the past which was subsequently removed after she worked with this patient her breast and her swallowing got better. She was also scheduled to have her pacemaker evaluated by Dr. Lewis yesterday however was unable to make the appointment because she hadn't been feeling well. She is also due to follow-up with Dr. Cespedes sometime later this month however has been unable to make the appointment because for the most part she's been home bound. Her family history is significant for early cardiac in her brothers at the age of 40s. Of note patient was recently discharged from the hospital in September 2016 at which time she had also presented for complaints of diarrhea and weakness for 3 days. Allergies/Medications Allergies: Coded Allergies: Opioids - Morphine Analogues (Intermediate, SEVERE NAUSEA/VOMITING 09/19/16) hydromorphone (Intermediate, SEVERE NAUSEA/VOMITING 09/19/16) morphine (Intermediate, VOMITING 09/19/16) Home Med list Alprazolam 0.5 MG TABLET 1 TAB PO PRN ANXIETY/SLEEP (Reported) Carbidopa/Levodopa (Sinemet 25-100 MG Tablet) 25 MG-100 MG TABLET 0.5 TAB PO TID SIDE EFFECTS FROM MEDS (Reported) Cholecalciferol (Vitamin D3) (Vitamin D3) 1,000 UNIT CAPSULE 1 CAP PO BID SUPPLEMENT (Reported) Clozapine (Clozaril) 25 MG TABLET 0.5 TAB PO 0800 MENTAL HEALTH (Reported) Clozapine (Clozaril) 25 MG TABLET 1 TAB PO QPM MENTAL HEALTH (Reported) Cyclobenzaprine HCl 10 MG TABLET 1 TAB PO AD PRN BACK PAIN (Reported) Glipizide (Glipizide XL) 5 MG TAB.ER.24 1 TAB PO QAM DM (Reported) Loperamide HCl (Loperamide) 2 MG CAPSULE 1 CAP PO AD PRN DIARRHEA (Reported) Multivitamin (Multiple Vitamins) 1 EACH TABLET 1 TAB PO DAILY SUPPLEMENT ( Reported) Ondansetron (Zofran Odt) 4 MG TAB.RAPDIS 1 TAB SL AD PRN NAUSEA (Reported) Prochlorperazine Maleate (Compazine) 10 MG TABLET 1 TAB PO Q6 PRN NAUSEA ( Reported) Pyridoxine HCl (Vitamin B-6) 100 MG TABLET 1 TAB PO TID SUPPLEMENT (Reported) Simvastatin (Zocor*) 20 MG TABLET 1 TAB PO DAILY CHOLESTEROL (Reported) Warfarin Sodium (Coumadin) 4 MG TABLET 1 TAB PO AD BLOOD THINNER (Reported) Past History Travel History Traveled to [place] past 21 day No Medical History Neurological: Parkinson's disease, INTERMITTENT CONFUSION EENT: NONE Cardiovascular: AFIB, hyperlipidemia, COMPLETE HEART BLOCK Respiratory: NONE Gastrointestinal: GERD, CHRONIC DIARRHEA Hepatic: NONE Renal: NONE Musculoskeletal: NONE Psychiatric: bipolar disease Endocrine: diabetes Blood Disorders: NONE Cancer(s): colon/rectal cancer 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 Home Who Do You Live With? child Services at Home: Home Health Aide Smoking Status: Never Smoked ETOH Use: denies use Illicit Drug Use: denies illicit drug use Functional Ability ADLs Independent: dressing, eating, toileting, bathing. Ambulation: walker IADLs Needs Assist: shopping, housework, finances, food prep, telephone, transportation, medication admin. Review of Systems Review of Systems Constitutional: Reports: weakness. Denies: chills, diaphoresis, fever. EENTM: Denies: visual changes. Cardiovascular: Denies: chest pain, edema, orthopena, palpitations, peripheral edema, syncope. Respiratory: Denies: cough, hemoptysis, orthopnea, short of breath, sputum production. GI: Reports: nausea, vomiting. Denies: abdominal pain, constipation, diarrhea, changes in stool. Genitourinary: Reports: frequency. Denies: dysuria, hesitation, urgency. Musculoskeletal: Reports: no symptoms. Neurological/Psychological: Reports: weakness. Denies: headache, numbness, tingling, tremors, unable to move lower ext, unable to move upper ext. Exam & Diagnostic Data Last 24 Hrs of Vital Signs/I&O Vital Signs Date Time Temp Pulse Resp B/P B/P Pulse O2 O2 Flow FiO2 Mean Ox Delivery Rate 11/26 2324 97.1 85 18 93/58 96 Room Air Intake & Output 11/27 0800 11/27 0000 11/26 1600 Intake Total Output Total Balance Patient 180 lb Weight Weight Estimated Measurement Method Physical Exam General Appearance Alert, No Acute Distress, oriented to place and person, and not to time Skin has a stage I decubitus ulcer along th ecoocyx Sepsis Skin Exam (color): Normal for Ethnicity HEENT Atraumatic, PERRLA, EOMI, dry mucous membranes Neck Supple, No JVD, No thryomegaly, No LAD Cardiovascular Regular Rate, Normal S1, Normal S2, grade II/ systolic murmer heard best at right tsernal border Lungs Clear to Auscultation, Normal Air Movement Abdomen Normal Bowel Sounds, Soft, No Tenderness Neurological Normal Speech, Strength at 5/5 X4 Ext, Cranial Nerves 3-12 NL ( grossly intact), flat affect Extremities No Edema, Normal Pulses, No Tenderness/Swelling Vascular Normal Pulses, Pulses Symmetrical Last 24 Hrs of Labs/Yury: Laboratory Tests 11/27/16 0008: Urinalysis HEAVY H, Urine Color YEL, Urine Clarity CLDY H, Urine pH 6.0, Ur Specific [place] >= 1.030, Urine Protein 100 H, Urine Ketones 15 H, Urine Nitrite NEG, Urine Bilirubin NEG, Urine Urobilinogen 0.2, Ur Leukocyte Esterase SMALL H, Ur Microscopic SEDIMENT EXAMINED, Urine WBC > 75 H, Ur Epithelial Cells RARE, Urine Bacteria PACKD H, Urine Hemoglobin SMALL H, Urine Glucose >= 1000 H 11/26/16 2340: Anion Gap 14, Estimated GFR 53 L, BUN/Creatinine Ratio 21.0, Glucose 215 H, Hemoglobin A1c Pending, Lactic Acid 1.8, Calcium 8.9, Magnesium 1.7, Total Bilirubin 0.8, AST 25, ALT 44, Alkaline Phosphatase 89, Troponin I 0.12 *H, Total Protein 6.8, Albumin 3.7, Globulin 3.1, Albumin/Globulin Ratio 1.2, Amylase 49, Lipase 50, PT 18.3 H, INR 1.75 H, CBC w Diff NO MAN DIFF REQ, RBC 4.07 L, MCV 98.0, MCH 33.0 H, RDW 13.2, MPV 10.0, Gran % 78.3 H, Lymphocytes % 12.1 L, Monocytes % 9.4 H, Eosinophils % 0, Basophils % 0.2, Absolute Granulocytes 8.5 H, Absolute Lymphocytes 1.3, Absolute Monocytes 1.0 H, Absolute Eosinophils 0, Absolute Basophils 0, PUBS MCHC 33.7 Microbiology 11/28 7 URINE ROUT: Urine Culture - RECD 11/27 2327 URINE ROUT: Urine Culture - CAN Cancelled: DUPLICATE COLLECTED AT 0008 ON 11/27/16 Diagnostic Data EKG Results Atrial sensed ventricle paced rythm, HR: 89, no ST-T changes Assessment/Plan Assessment: 86-year-old female with a past medical history of anxiety, Parkinson's, non- insulin-dependent diabetes mellitus, history of C. difficile, atrial fibrillation on Coumadin, hyperlipidemia, complete heart block status post post permanent pacemaker in 2012, history of colon cancer status post right hemicolectomy , history of chronic diarrhea, presented to the ER with chief complaints of intractable nausea and vomiting that has been going on for the past 2 weeks. Of note patient was recently discharged from the hospital in September 2016 at which time she had also presented for complaints of diarrhea and weakness for 3 days Vitals at the time of admission blood pressure 93/58, respiratory rate 18, afebrile pulse 85 secondary 96% on room air. On physical exam she is alert, in no acute distress, oriented to place and person but not to time sitting comfortably in bed. Examination of the back reveals a stage I decubitus ulcer along the coccyx. HEENT revealed PERRLA, dry mucous membranes. Neck was supple with no JVD, thyromegaly or lymphadenopathy. Cardiovascular exam revealed regular rate, normal S1 and S2 grade 2 x 6 systolic murmur heard best at right sternal border with pacemaker intact and no erythema overlying it along the left anterior chest wall. Chest was clear to auscultation bilaterally. Abdominal exam is benign abdomen soft, nontender, and nondistended normal bowel sounds in all 4 quadrants and Moss's negative abdomen there are exam revealed normal speech, strength 5 out of 5 in all 4 extremities, cranial nerves II through XII grossly intact with a flat affect. Examination of the extremities revealed trace edema, pulses were symmetrical. Labs pertinent for an H&H of 13.4/39.8, white blood cell count of 10,800, platelet count 1 95,000. Serum chemistries reveal a sodium of 140, potassium 3.5, bicarbonate of 28, anion gap of 14, BUN elevated at 21 and creatinine of 1.0. Serum glucose elevated to 2:15, lactic acid within normal limits of 1.8. LFTs unremarkable with an AST/ALT 25/44 and alkaline phosphatase of 89 with total bili 0.8. First set of troponin elevated at 0.12. Serum amylase and lipase were negative at 49 and 50. INR was subtherapeutic at 1.75. UA was pending. 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 EKG revealed Atrial sensed ventricular paced rhythm with a heart rate of 89, no ST-T changes can be identified. In the ER she received 300 mg of aspirin suppository, Zofran 4 mg IV 1 and normal saline bolus at thousand mls 1. Assessment and plan Place under obs to telemetry given her elevated troponins. #Generalized weakness in the setting of intractable nausea and vomiting Most likely secondary to diabetic gastroparesis versus cholecystitis versus urinary tract infection (unlikely) vs drug induced (Sinemet?) Nothing by mouth for now and maintain her on IV fluids at 75 mls per hour Advance diet as tolerated Zofran 4 mg IV every 6 when necessary for vomiting Ultrasound abdomen in a.m. to evaluate for cholelithiasis versus cholecystitis GI consult in AM #NSTEMI She already received aspirin 325 mg per rectal. Continue her on baby aspirin 81 mg daily and Most likely secondary to demand ischemia Trend troponins and EKG at 6 AM and 12 PM Echocardiogram to rule out any regional wall motion abnormalities Will villalobos off starting her on IV Heparin for now. She was guaiac negative. Cardio consult in a.m. with Dr. Encarnacion #History of atrial fibrillation currently on warfarin and status post permanent pacemaker Subtherapeutic on her INR. Dose Coumadin to maintain INR of 2-3. Consult for interrogation of her PPM #Hyperlipidemia Start her on atorvastatin 80 mg daily #History of Parkinson's Continue on carbidopa/levodopa 12.5/50 mg 3 times a day #History of anxiety and paranoid schizophrenia Continue on clonazepam 25 mg at bedtime and 12.5 mg in a.m. Continue alprazolam 0.5 mg by mouth when necessary for anxiety #Hyf-qkhryfc-xogxwxhri diabetes mellitus Continue to hold glipizide for now Maintain on Novolin sliding scale while nothing by mouth Accu-Cheks every 6 while nothing by mouth. Follow-up hemoglobin A1c Diet Nothing by mouth for now. Advance diet as tolerated DVT prophylaxis On warfarin CODE STATUS Full code as per daughter Pau As Ranked By This Provider Problem List: 1. Nausea and vomiting 2. Intractable vomiting 3. Atrial fibrillation 4. Parkinsonian features 5. Diabetes Core Measures/Miscellaneous Acute Coronary Syndrome ACS Diagnosis: Yes Date of most recent Echo 05/27/13 Last Known EF % 65 BRANDI/ARB For EF <40% No No BRANDI/ARB d/t hypotension ASA W/I 24hr of admit Yes Beta-Familia W/I 24hrs Yes LDL assessed W/I 24 hrs Yes Currently on Statin No Cerebrovascular Accident CVA/TIA Diagnosis: No Congestive Heart Failure CHF Diagnosis: No Venous Thromboembolism VTE Risk Factors: Age > 40 [facility] prophylaxis d/t: No contraindications No VTE Pharm Prophylaxis d/t: No contraindications VTE Diagnosis: No VTE Type: NONE VTE Confirmed by (Test): NONE Severe Sepsis Severe Sepsis Present: No Septic Shock Septic Shock Present: No Miscellaneous Documentation Attending Case Discussed With: Dr. Harrison Primary Care Physician: LAZARA LIVE MD Patient sees these Specialists Dr. Shashank Drew Level of Patient Care: Telemetry Consults Needed: 1 Consulting Specialty: Gastroenterology Consults Needed: 2 Consulting Specialty: Cardiology Resident Review Statement Resident Statement: admitted by resident NAVJOT DUMONT 11/27/16 0539: Attending MD Review Statement Attending Statement Attending MD Statement: examined this patient, discuss w/resident/PA/VEGETABLE HANDLER, agreed w/resident/PA/VEGETABLE HANDLER, reviewed EMR data (avail), reviewed images, amended to note Attending Assessment/Plan: CC: persistent nausea, vomiting PMH: History of colon cancer S/P hemicolectomy right side, paranoid schizophrenia, Parkinson disease, A. fib, DM, HLD, heart block status post pacemaker, history of C. difficile Her daughter who provided the history. Patient does not provide any details, patient states that she has been feeling very weak, lethargic, decreased by mouth intake and sick in her stomach but did not mention how many times she threw up. Daughter mentions that since last 4-5 days patient has been having decreased by mouth intake, recurrent vomiting and nausea, patient had approximately 5-10 vomiting's today when she was brought to ER. 3 times this month for similar complaints, she was discharged with Reglan, Compazine, Zofran without much relief. Patient also endorses urinary frequency without burning or dysuria Vitals: Afebrile, pulse 85, respirations 10, blood pressure 93/58, saturation 96 % on room air. On exam: A NOT ORIENTED, lip smacking, cooperative, no acute distress, neck supple, JVD normal, no lymphadenopathy, mucosa dry, no focal neurological deficit, no dependent edema, no obvious skin rashes or inflammation CVS: S1-S2. RS: Clear to auscultate bilaterally. Abdomen: Soft, NT, ND, bowel sounds present. Labs: WBC 10,000 with neutrophils 78%, BUN 21, glucose 215, lactate 1.8, magnesium 1.7, AST 25, AST 44, troponin 0.12, lipase 50 No imaging was obtained EKG: Paced rhythm A and P Patient has recurrent vomitings with nausea unclear etiology, probably gastroparesis, decreased motility, or from side effect of Sinemet. Patient also has elevated troponin which can be probably secondary to demand with recurrent vomitings and low blood pressure but patient has significant history of heart block, would benefit from monitoring # Recurrent vomiting # Dehydration # Elevated troponin : NSTEMI ?Demand # History of paranoid schizophrenia, Parkinson's, heart block status post pacemaker, HLD, diabetes - Place in observation in telemetry floor - Continue IV fluids with normal saline at 75 mL per hour - Trend troponin, serial EKGs - Cardiology consult, GI consult - Nothing by mouth except meds, - Right upper quadrant ultrasound to rule out any CBD stones - Urine culture - Hold off antibiotics as patient has only frequency in urination, no fever, no significant leukocytosis no burning or dysuria, hyperglycemia can cause increased frequency of urine. If patient has fever or leukocytosis then consider IV antibiotics for UTI - 2-D echo in a.m. - Continue her home medications alprazolam, Sinemet, clozapine, simvastatin and warfarin. Hold glipizide, continue sliding scale insulin, continue when necessary Zofran.
--- NOTE | 2016-11-27 01:38 | NUR ---
HOUSESTAFF AT BEDSIDE.
[2016-11-27] MEDS ORDERED: CLOZARIL25 MG PO (01:54)
[2016-11-27] MEDS ORDERED: COMPAZINE10 M1 PO (01:56)
--- NOTE | 2016-11-27 04:05 | NUR ---
RESTING IN BED NOTED TO BE TALKING TO SELF, MUMBLING, EYES OPEN WHEN ASKED PT STATES SHE WAS NOT TALKING TO HERSELF.
--- NOTE | 2016-11-27 06:23 | NUR ---
AWAKENED FOR AM VITALS ,LABS,FS AND EKG. PT PLEASANTLY CONFUSED, PT REPORTS WANTING TO GO HOME, THEN ASKS AGAIN AND SEVERAL TIMES DURING AM CARE. PT FURTHER REPORTS THAT SHE WAS HERE BECAUSE OF HER SON AND HOW SHE ENDED UP BEING A PT SHE DOES NOT KNOW. UPON AM CARE THIS AM, PT HAS A FUNGAL RASH NOTED TO CLEAVAGE AREA AND BETW BREASTS PT REPORTS ITS BEEN THERE AWHILE, PERICARE PROVIDED.
[2016-11-27 06:26] LABS: ABSOLUTE BASOPHIL COUNT 0 /CUMM (0.0-0.2); ABSOLUTE EOSINOPHIL COUNT 0.1 /CUMM (0.0-0.7); ABSOLUTE GRANULOCYTE CT 7.3 /CUMM (1.4-6.5); ABSOLUTE LYMPH COUNT 2.3 /CUMM (1.2-3.4); ABSOLUTE MONOCYTE COUNT 1.2 /CUMM (0.10-0.60); BASOPHIL % 0.3 % (0.0-2.0); EOSINOPHIL % 0.6 % (0-5); GRANULOCYTE % 67.5 % (42.2-75.2); HEMATOCRIT 37.8 % (37-47); MEAN CORPUSCULAR HGB 32.8 PG (27.0-31.0); MEAN CORPUSCULAR HGB CONC 32.9 G/DL (33.0-37.0); MEAN CORPUSCULAR VOLUME 99.5 FL (81.0-99.0); MEAN PLATELET VOLUME 9.7 FL (7.4-10.4); PLATELET COUNT 155 /CUMM (130-400); RBC DISTRIBUTION WIDTH 13.4 % (11.5-14.5); WHITE BLOOD CELL COUNT 10.8 /CUMM (4.8-10.8)
--- NOTE | 2016-11-27 06:30 | NUR ---
REQUESTED OJ SMALL AMT IN ICE, PT THEN BECAME NAUSEOUS, FELS LIKE VOMITING. PT ECOURAGED TO RELAX, SMALL SLOW BREATHES AND NAUSEA SUBSIDED.
[2016-11-27 06:33] LABS: PT 17.5 SEC (9.4-12.5)
--- NOTE | 2016-11-27 07:27 | NUR ---
ASSUMED CARE. PT AWAKE, DENIES PAIN.
--- NOTE | 2016-11-27 08:21 | NUR ---
ECHOCARDIOGRAM PERFORMED AT BEDSIDE.
--- NOTE | 2016-11-27 09:06 | NUR ---
PT UPSET, WANTS TO GO HOME. REFUSING FURTHER TESTING. ASSISTED HER WITH PHONE AND CALLED DAUGHTER JEANNINE CALLED. EXPLANED NECCESITY OF STAYING IN HOSPITAL TO COMPLETE TESTING. PT ACCEPTING, AND AGREES TO FURTHER TESTING AT THIS TIME.
--- NOTE | 2016-11-27 10:00 | NUR ---
TURNED AND REPSITIONED IN BED. NYSTATIN POWDER APPLIED TO FUNGAL RASH ONDER LEFT BREAST. DENIES ABODMINAL PAIN OR NAUSEA AT THIS TIME.
--- NOTE | 2016-11-27 10:44 | ULTRASOUND REPORT ---
EXAMINATION: US ABDOMEN LIMITED CLINICAL INFORMATION: Nausea and vomiting. Evaluate for cholecystitis. COMPARISON: CT of abdomen and pelvis, 01/30/2015 and 11/15/2016 TECHNIQUE: Real-time imaging of the right upper quadrant abdominal viscera. FINDINGS: PANCREAS: The visualized pancreas is hyperechoic compatible with partial fatty replacement. No pancreatic ductal dilatation or peripancreatic fluid. ABDOMINAL AORTA: Normal in caliber. LIVER: Liver appears diffusely hyperechoic, suggestive of steatosis, without evidence of focal lesion or intrahepatic bile duct dilatation. GALLBLADDER: Surgically absent. COMMON BILE DUCT: The common duct is 0.9 cm diameter, unchanged compared to 01/30/2015. RIGHT KIDNEY: Normal. No hydronephrosis. No renal calculi or focal parenchymal lesions. The kidney measures 9.7 cm in maximum dimension. FREE FLUID: None. IMPRESSION: 1. Gallbladder is surgically absent and common duct is mildly dilated, measuring 0.9 cm diameter, unchanged compared to 01/30/2015. 2. Liver appears diffusely hyperechoic -- suggestive of steatosis.
--- NOTE | 2016-11-27 10:53 | NUR ---
IPOC PART I AND II COMPLETED.
--- NOTE | 2016-11-27 10:53 | NUR ---
02 SAT 88% ON ROOM AIR, 02 APPLIED AT 2L NASAL CANNULA.
--- NOTE | 2016-11-27 10:57 | NUR ---
INTERMITTANTLY CONFUSED TO PLACE, DATE AND TIME, WANTS TO GO HOME.
--- NOTE | 2016-11-27 12:05 | NUR ---
REPEAT TROP DRAWN AND SENT BY THIS MST.
--- NOTE | 2016-11-27 12:23 | NUR ---
ATTEMPTED TO AMBULATE PT WITH WALKER; WALKED 3 STEPS AND BECAMED DIZZY, ASSISTED BACK TO BED. BP 101/59 P 79, 02 SAT 90% LYING, BP 103/59, P 78, 02 SAT 90%. 02 APPLIED AT 2L.
--- NOTE | 2016-11-27 12:28 | NUR ---
DR. GUERRERO HERE TO EVALUATE.
--- NOTE | 2016-11-27 12:37 | NUR ---
DR. GRADY VILLAR ([phone])
--- NOTE | 2016-11-27 13:27 | Cons- Gastroenterology ---
General Information and HPI Consulting Request Date of Consult: 11/27/16 Requested By: NAVJOT DUMONT MD Reason for Consult: Vomiting Source of Information: family, old records Exam Limitations: poor historian History of Present Illness: 86-year-old female status post right hemicolectomy in 2002 for colon cancer, without chemotherapy despite it being stage III; T3,N1. In January 2015 she had an episode of ischemic colitis. She has had chronic/recurrent diarrhea, apparently for decades. She was admitted to the hospital in September for diarrhea, dehydration and weakness, and discharged to rehabilitation. Her PPI (Prilosec) was stopped. According to her daughter (the patient denies any GI symptoms), about 2 weeks ago she began to have nausea and vomiting and inability to tolerate food. Ondansetron ODT did not work, and she was treated with Compazine. Of note, she has had tardive dyskinesia, precluding use of metoclopramide. Her vomiting recurred yesterday, and she was unable to hold down liquids. The patient denies heartburn, dysphagia, abdominal pain, constipation, current diarrhea (daughter confirms that it has been better), blood per rectum. Allergies/Medications Allergies: Coded Allergies: Opioids - Morphine Analogues (Intermediate, SEVERE NAUSEA/VOMITING 09/19/16) hydromorphone (Intermediate, SEVERE NAUSEA/VOMITING 09/19/16) morphine (Intermediate, VOMITING 09/19/16) Home Med List: Alprazolam 0.5 MG TABLET 1 TAB PO PRN ANXIETY/SLEEP (Reported) Carbidopa/Levodopa (Sinemet 25-100 MG Tablet) 25 MG-100 MG TABLET 0.5 TAB PO TID SIDE EFFECTS FROM MEDS (Reported) Cholecalciferol (Vitamin D3) (Vitamin D3) 1,000 UNIT CAPSULE 1 CAP PO BID SUPPLEMENT (Reported) Clozapine (Clozaril) 25 MG TABLET 0.5 TAB PO 0800 MENTAL HEALTH (Reported) Clozapine (Clozaril) 25 MG TABLET 1 TAB PO QPM MENTAL HEALTH (Reported) Cyclobenzaprine HCl 10 MG TABLET 1 TAB PO AD PRN BACK PAIN (Reported) Esomeprazole (Nexium) 40 MG CAPSULE.DR 1 CAP PO BID stomach ulcer take every day twice. ON empty stomach in the morning Glipizide (Glipizide XL) 5 MG TAB.ER.24 1 TAB PO QAM DM (Reported) Loperamide HCl (Loperamide) 2 MG CAPSULE 1 CAP PO AD PRN DIARRHEA (Reported) Multivitamin (Multiple Vitamins) 1 EACH TABLET 1 TAB PO DAILY SUPPLEMENT ( Reported) Ondansetron (Zofran Odt) 4 MG TAB.RAPDIS 1 TAB SL Q6P PRN NAUSEA Prochlorperazine Maleate (Compazine) 10 MG TABLET 1 TAB PO Q6 PRN NAUSEA ( Reported) Pyridoxine HCl (Vitamin B-6) 100 MG TABLET 1 TAB PO TID SUPPLEMENT (Reported) Simvastatin (Zocor*) 20 MG TABLET 1 TAB PO DAILY CHOLESTEROL (Reported) Warfarin Sodium (Coumadin) 4 MG TABLET 1 TAB PO AD BLOOD THINNER (Reported) Dose coumadin to keep the INR between 2-3. Please discuss with your PCP, for further instructions. Current Medications: Current Medications Sig/Mckay Start time Last Medication Dose Route Stop Time Status Admin Acetaminophen 650 MG Q6P PRN 11/27 0130 AC PO Acetaminophen 1,000 MG Q6P PRN 11/27 0130 AC IV Aspirin 81 MG DAILY 11/27 1000 AC 11/27 PO 0952 Aspirin 325 MG ONCE ONE 11/27 0115 CAN PO 11/27 0116 Aspirin 300 MG ONCE ONE 11/27 0115 DC 11/27 NJ 11/27 0116 0136 Atorvastatin Calcium 80 MG 1700 11/27 1700 AC PO Carbidopa/Levodopa 0.5 TAB TID 11/27 1000 AC 11/27 PO 0952 Ceftriaxone Sodium 1,000 MG DAILY 11/27 1000 CAN IV Clozapine 25 MG QPM 11/27 2200 AC PO Clozapine 12.5 MG QAM 11/27 1000 AC 11/27 PO 0952 Dextrose/Sodium 1,000 ML Q13H 11/27 0245 AC 11/27 Chloride IV 11/27 1544 0755 Insulin Human Regular 0 Q6 11/27 0600 AC 11/27 SC 1235 Loperamide HCl 2 MG Q6P PRN 11/27 0245 AC PO Nystatin 1 PALLAVI BID 11/27 1000 AC 11/27 TOP 11/28 0959 1030 Ondansetron HCl 4 MG Q6P PRN 11/27 0130 AC IV Ondansetron HCl 4 MG ONCE ONE 11/26 2345 DC 11/26 IV 11/26 2346 2342 Ondansetron HCl 0 .STK-MED ONE 11/26 2341 DC .ROUTE Potassium Chloride 40 MEQ ONCE ONE 11/27 1315 AC PO 11/27 1316 Sodium Chloride 1,000 ML ONCE ONE 11/27 0045 DC 11/27 IV 11/27 0844 0629 Sodium Chloride 1,000 ML ONCE ONE 11/26 2345 DC 11/26 IV 11/27 0624 2342 Past History Travel History Traveled to [place] past 21 day No Medical History Neurological: Parkinson's disease, INTERMITTENT CONFUSION EENT: NONE Cardiovascular: AFIB, hyperlipidemia, COMPLETE HEART BLOCK Respiratory: NONE Gastrointestinal: GERD, CHRONIC DIARRHEA Hepatic: NONE Renal: NONE Musculoskeletal: NONE Psychiatric: bipolar disease Endocrine: diabetes Blood Disorders: NONE Cancer(s): 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 Home Who Do You Live With? child Services at Home: Home Health Aide Smoking Status: Never Smoked ETOH Use: denies use Illicit Drug Use: denies illicit drug use Functional Ability ADLs Independent: dressing, eating, toileting, bathing. Ambulation: walker IADLs Needs Assist: shopping, housework, finances, food prep, telephone, transportation, medication admin. Review of Systems Review of Systems Constitutional: Reports: malaise, weakness. Denies: fever. EENTM: Denies: icterus, epistaxis. Cardiovascular: Denies: chest pain, syncope. Respiratory: Denies: cough, hemoptysis, short of breath. GI: Reports: see HPI. Genitourinary: Denies: dysuria, hematuria. Musculoskeletal: Denies: joint swelling, neck pain. Skin: Denies: jaundice, lesions. Neurological/Psychological: Reports: cognitive dysfunction, tremors. Hematologic/Endocrine: Denies: bruising, bleeding. Exam & Diagnostic Data Vital Signs and I&O Vital Signs Date Time Temp Pulse Resp B/P B/P Pulse O2 O2 Flow FiO2 Mean Ox Delivery Rate 11/27 1053 97.2 75 25 111/64 93 Nasal 2.0L Cannula 11/27 0630 97.2 84 24 126/80 93 Room Air 11/27 0102 97.2 72 20 102/58 96 Room Air 11/27 2323 97.1 85 18 93/58 96 Room Air Intake & Output 11/27 0400 11/26 1600 11/26 0400 11/25 0400 Intake Total 1000 Output Total 125 Balance 875 Intake, IV 1000 Output, Urine 125 Patient 180 lb 180 lb Weight Weight Estimated Measurement Method Physical Exam: Elderly white female, calm and conversant, no apparent distress. Alert and oriented. Skin normal with normal turgor, without lesion, rash, jaundice. No adenopathy. Sclera anicteric. No oropharyngeal lesion. Tongue normal. No thyromegaly or neck mass. Heart regular rhythm. Lungs clear bilaterally. Abdomen soft and nondistended with normal bowel sounds, no tenderness, mass or organomegaly. Extremities without cyanosis, edema. Results Pertinent Lab Results: Laboratory Tests 11/27 11/27 11/27 1205 0600 0228 Chemistry Sodium (137 - 145 mmol/L) 144 Potassium (3.5 - 5.1 mmol/L) 3.4 L Chloride (98 - 107 mmol/L) 103 Carbon Dioxide (22 - 30 mmol/L) 31 H Anion Gap (5 - 16) 10 BUN (7 - 17 mg/dL) 24 H Creatinine (0.5 - 1.0 mg/dL) 1.0 Estimated GFR (>60 ml/min) 53 L BUN/Creatinine Ratio (7 - 25 %) 24.0 Lactic Acid Cancelled Troponin I (< 0.11 ng/ml) 0.08 0.10 Triglycerides (<150 mg/dL) 74 Cholesterol (<200 MG/DL) 100 LDL Cholesterol, Calc (65 - 129 mg/dL) 45 L HDL Cholesterol (40 - 60 mg/dL) 41 Cholesterol/HDL Ratio (0.00 - 4.23 %) 2 Coagulation PT (9.4 - 12.5 SEC) 17.5 H INR (0.90 - 1.19) 1.68 H Hematology CBC w Diff NO MAN DIFF REQ WBC (4.8 - 10.8 /CUMM) 10.8 RBC (4.20 - 5.40 /CUMM) 3.80 L Hgb (12.0 - 16.0 G/DL) 12.4 Hct (37 - 47 %) 37.8 MCV (81.0 - 99.0 FL) 99.5 H MCH (27.0 - 31.0 PG) 32.8 H RDW (11.5 - 14.5 %) 13.4 Plt Count (130 - 400 /CUMM) 155 MPV (7.4 - 10.4 FL) 9.7 Gran % (42.2 - 75.2 %) 67.5 Lymphocytes % (20.5 - 51.1 %) 20.9 Monocytes % (1.7 - 9.3 %) 10.7 H Eosinophils % (0 - 5 %) 0.6 Basophils % (0.0 - 2.0 %) 0.3 Absolute Granulocytes (1.4 - 6.5 /CUMM) 7.3 H Absolute Lymphocytes (1.2 - 3.4 /CUMM) 2.3 Absolute Monocytes (0.10 - 0.60 /CUMM) 1.2 H Absolute Eosinophils (0.0 - 0.7 /CUMM) 0.1 Absolute Basophils (0.0 - 0.2 /CUMM) 0 PUBS MCHC (33.0 - 37.0 G/DL) 32.9 L 11/27 11/26 0008 2340 Chemistry Sodium (137 - 145 mmol/L) 140 Potassium (3.5 - 5.1 mmol/L) 3.5 Chloride (98 - 107 mmol/L) 98 Carbon Dioxide (22 - 30 mmol/L) 28 Anion Gap (5 - 16) 14 BUN (7 - 17 mg/dL) 21 H Creatinine (0.5 - 1.0 mg/dL) 1.0 Estimated GFR (>60 ml/min) 53 L BUN/Creatinine Ratio (7 - 25 %) 21.0 Glucose (65 - 99 mg/dL) 215 H Hemoglobin A1c (4.2 - 5.8 %) Pending Lactic Acid (0.7 - 2.1 mmol/L) 1.8 Calcium (8.4 - 10.2 mg/dL) 8.9 Magnesium (1.6 - 2.3 mg/dL) 1.7 Total Bilirubin (0.2 - 1.3 mg/dL) 0.8 AST (14 - 36 U/L) 25 ALT (9 - 52 U/L) 44 Alkaline Phosphatase (<127 U/L) 89 Troponin I (< 0.11 ng/ml) 0.12 *H Total Protein (6.3 - 8.2 g/dL) 6.8 Albumin (3.5 - 5.0 g/dL) 3.7 Globulin (1.9 - 4.2 gm/dL) 3.1 Albumin/Globulin Ratio (1.1 - 2.2 %) 1.2 Amylase (30 - 110 U/L) 49 Lipase (23 - 300 U/L) 50 Coagulation PT (9.4 - 12.5 SEC) 18.3 H INR (0.90 - 1.19) 1.75 H Hematology CBC w Diff NO MAN DIFF REQ WBC (4.8 - 10.8 /CUMM) 10.8 RBC (4.20 - 5.40 /CUMM) 4.07 L Hgb (12.0 - 16.0 G/DL) 13.4 Hct (37 - 47 %) 39.8 MCV (81.0 - 99.0 FL) 98.0 MCH (27.0 - 31.0 PG) 33.0 H RDW (11.5 - 14.5 %) 13.2 Plt Count (130 - 400 /CUMM) 195 MPV (7.4 - 10.4 FL) 10.0 Gran % (42.2 - 75.2 %) 78.3 H Lymphocytes % (20.5 - 51.1 %) 12.1 L Monocytes % (1.7 - 9.3 %) 9.4 H Eosinophils % (0 - 5 %) 0 Basophils % (0.0 - 2.0 %) 0.2 Absolute Granulocytes (1.4 - 6.5 /CUMM) 8.5 H Absolute Lymphocytes (1.2 - 3.4 /CUMM) 1.3 Absolute Monocytes (0.10 - 0.60 /CUMM) 1.0 H Absolute Eosinophils (0.0 - 0.7 /CUMM) 0 Absolute Basophils (0.0 - 0.2 /CUMM) 0 PUBS MCHC (33.0 - 37.0 G/DL) 33.7 Urines Urinalysis HEAVY H Urine Color (YEL,AMB,STR) YEL Urine Clarity (CLEAR) CLDY H Urine pH (5.0 - 8.0) 6.0 Ur Specific [place] (1.001 - 1.035) >= 1.030 Urine Protein (NEG,<30 MG/DL) 100 H Urine Ketones (NEG) 15 H Urine Nitrite (NEG) NEG Urine Bilirubin (NEG) NEG Urine Urobilinogen (0.1 - 1.0 EU/dl) 0.2 Ur Leukocyte Esterase (NEG) SMALL H Ur Microscopic SEDIMENT EXAMINED Urine WBC (0 - 2 /HPF) > 75 H Ur Epithelial Cells (NONE,FEW) RARE Urine Bacteria (NEG/NONE) PACKD H Urine Hemoglobin (NEG) SMALL H Urine Glucose (N MG/DL) >=1000 H Imaging/Other Studies: CT scan (November 15): IMPRESSION: No acute change of bowel. Status post right hemicolectomy. Moderate volume of food debris in the proximal small bowel loops can be due to low motility. There is no obstruction or bowel wall thickening. Assessment/Plan Assessment/Recommendations: 1. Vomiting. This may represent severe GERD, after PPI was stopped. Differential diagnosis includes medication-induced, gastroparesis or other dysmotility, gastric outlet obstruction, central nervous system process, etc. bowel obstruction is unlikely given lack of pain, and no corroborative imaging findings. 2. Chronic diarrhea. Apparently this has been present on and off for decades. Differential diagnosis is large (inflammatory, metabolic, malabsorptive, drug- induced, dysmotility, etc.) Recommendations * Begin PPI IV twice a day, ondansetron 4 mg IV 4 times a day * Consider upper GI series * Begin clear liquid diet, advance as tolerated Consult Acknowledgment - Thank you for your consult request.
--- NOTE | 2016-11-27 13:30 | Cons- Cardiology ---
General Information and HPI Consulting Request Date of Consult: 11/27/16 Requested By: NAVJOT DUMONT MD Reason for Consult: Atrial fibrillation, nausea, elevated troponin isoenzyme Source of Information: patient, family, old records Exam Limitations: no limitations History of Present Illness: The patient is an 86-year-old woman with a past medical history of Parkinson's disease, diabetes mellitus, atrial fibrillation (anticoagulated with Coumadin), hyperlipidemia, complete heart block (status post pacemaker), prior colon CA with remote right hemicolectomy and chronic diarrhea. She presented to our emergency room with symptoms of nausea and vomiting, present for approximately 2 weeks; however, acutely worsened on the day of arrival. The patient states she has had generalized nausea with poor by mouth intake or period of approximately 2 weeks. There has as well been increasing bowel movements and a sensation of nausea/gastroesophageal reflux disease. With the increased nausea and vomiting, the patient has had increasing weakness and has been unable to adequately ambulate. On arrival to the emergency room, she was found to be mildly hypotensive. An EKG demonstrated no acute ischemic T changes (paced); however, an initial troponin isoenzyme was mildly elevated at 0.12. Otherwise denied symptoms of chest pains or palpitations or symptoms of gastroesophageal reflux at that time. An echocardiogram performed in the emergency room (prelim report) demonstrates an overall preserved LV systolic function with an LVEF of approximately 50%. There is mild septal dyssynchrony as well as distal septal wall hypokinesis. Allergies/Medications Allergies: Coded Allergies: Opioids - Morphine Analogues (Intermediate, SEVERE NAUSEA/VOMITING 09/19/16) hydromorphone (Intermediate, SEVERE NAUSEA/VOMITING 09/19/16) morphine (Intermediate, VOMITING 09/19/16) Home Med List: Alprazolam 0.5 MG TABLET 1 TAB PO PRN ANXIETY/SLEEP (Reported) Carbidopa/Levodopa (Sinemet 25-100 MG Tablet) 25 MG-100 MG TABLET 0.5 TAB PO TID SIDE EFFECTS FROM MEDS (Reported) Cholecalciferol (Vitamin D3) (Vitamin D3) 1,000 UNIT CAPSULE 1 CAP PO BID SUPPLEMENT (Reported) Clozapine (Clozaril) 25 MG TABLET 0.5 TAB PO 0800 MENTAL HEALTH (Reported) Clozapine (Clozaril) 25 MG TABLET 1 TAB PO QPM MENTAL HEALTH (Reported) Cyclobenzaprine HCl 10 MG TABLET 1 TAB PO AD PRN BACK PAIN (Reported) Glipizide (Glipizide XL) 5 MG TAB.ER.24 1 TAB PO QAM DM (Reported) Loperamide HCl (Loperamide) 2 MG CAPSULE 1 CAP PO AD PRN DIARRHEA (Reported) Multivitamin (Multiple Vitamins) 1 EACH TABLET 1 TAB PO DAILY SUPPLEMENT ( Reported) Ondansetron (Zofran Odt) 4 MG TAB.RAPDIS 1 TAB SL AD PRN NAUSEA (Reported) Prochlorperazine Maleate (Compazine) 10 MG TABLET 1 TAB PO Q6 PRN NAUSEA ( Reported) Pyridoxine HCl (Vitamin B-6) 100 MG TABLET 1 TAB PO TID SUPPLEMENT (Reported) Simvastatin (Zocor*) 20 MG TABLET 1 TAB PO DAILY CHOLESTEROL (Reported) Warfarin Sodium (Coumadin) 4 MG TABLET 1 TAB PO AD BLOOD THINNER (Reported) Current Medications: Current Medications Sig/Mckay Start time Last Medication Dose Route Stop Time Status Admin Acetaminophen 650 MG Q6P PRN 11/27 0130 AC PO Acetaminophen 1,000 MG Q6P PRN 11/27 0130 AC IV Aspirin 81 MG DAILY 11/27 1000 AC 11/27 PO 0952 Aspirin 325 MG ONCE ONE 11/27 0115 CAN PO 11/27 0116 Aspirin 300 MG ONCE ONE 11/27 0115 DC 11/27 MI 11/27 0116 0136 Atorvastatin Calcium 80 MG 1700 11/27 1700 AC PO Carbidopa/Levodopa 0.5 TAB TID 11/27 1000 AC 11/27 PO 0952 Ceftriaxone Sodium 1,000 MG DAILY 11/27 1000 CAN IV Clozapine 25 MG QPM 11/27 2200 AC PO Clozapine 12.5 MG QAM 11/27 1000 AC 11/27 PO 0952 Dextrose/Sodium 1,000 ML Q13H 11/27 0245 AC 11/27 Chloride IV 11/27 1544 0755 Insulin Human Regular 0 Q6 11/27 0600 AC 11/27 SC 1235 Loperamide HCl 2 MG Q6P PRN 11/27 0245 AC PO Nystatin 1 PALLAVI BID 11/27 1000 AC 11/27 TOP 11/28 0959 1030 Ondansetron HCl 4 MG Q6P PRN 11/27 0130 AC IV Ondansetron HCl 4 MG ONCE ONE 11/26 2345 DC 11/26 IV 11/26 2346 2342 Ondansetron HCl 0 .STK-MED ONE 11/26 2341 DC .ROUTE Potassium Chloride 40 MEQ ONCE ONE 11/27 1315 DC PO 11/27 1316 Sodium Chloride 1,000 ML ONCE ONE 11/27 0045 DC 11/27 IV 11/27 0844 0629 Sodium Chloride 1,000 ML ONCE ONE 11/26 2345 DC 11/26 IV 11/27 0624 2342 Review of Systems Review of Systems: The review of systems is negative for chest pains, palpitations nor lightheadedness. The remainder of the 14 point review of systems is noncontributory with the exception of above. 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 Home Who Do You Live With? child Services at Home: Home Health Aide Smoking Status: Never Smoked ETOH Use: denies use Illicit Drug Use: denies illicit drug use Functional Ability ADLs Independent: dressing, eating, toileting, bathing. Ambulation: walker IADLs Needs Assist: shopping, housework, finances, food prep, telephone, transportation, medication admin. ECHO Results (as available) Report: 1. This was a technically difficult examination due to the patient's body habitus. 2. 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 3. Thickening and calcification of the mitral leaflets is present with mild mitral insufficiency and mild left atrial dilatation. 4. There is no significant pericardial fluid present. 5. The left ventricular chamber size is normal with mild concentric hypertrophy and a normal ejection fraction and no significant resting wall motion abnormalities. 6. The right heart structures were not optimally assessed. Mild to moderate tricuspid insufficiency is present with mild pulmonic insufficiency and no evidence of pulmonary hypertension. Exam & Diagnostic Data Vital Signs and I&O Vital Signs Date Time Temp Pulse Resp B/P B/P Pulse O2 O2 Flow FiO2 Mean Ox Delivery Rate 11/27 1053 97.2 75 25 111/64 93 Nasal 2.0L Cannula 11/27 0630 97.2 84 24 126/80 93 Room Air 11/27 0102 97.2 72 20 102/58 96 Room Air 11/26 2324 97.1 85 18 93/58 96 Room Air Intake & Output 11/27 1600 11/27 0800 11/27 0000 11/26 1600 11/26 0800 11/26 0000 Intake Total 1000 Output Total 125 Balance 875 Intake, IV 1000 Output, Urine 125 Patient 180 lb 180 lb Weight Weight Estimated Measurement Method Physical Exam: General: Nontoxic, no apparent distress. HEENT: Sclera and conjunctiva within normal limits, without xanthelasmas. Neck: Carotids 2+ without bruits. Respiratory: Scattered rhonchi, air movement is good, without accessory respiratory muscle use. Heart: Regular rate and rhythm, 2/6 systolic ejection murmur left sternal border , without JVD. Abdomen: Soft, nontender, no masses, normoactive bowel sounds. Extremities: Without clubbing, cyanosis, without edema. Neuro: Nonfocal exam, strength, 5 out of 5 Skin: Within normal limits without lesions. Psych: Mood and affect: Normal Labs/[place] Results: Laboratory Tests 11/27 11/27 11/27 1205 0600 0228 Chemistry Sodium (137 - 145 mmol/L) 144 Potassium (3.5 - 5.1 mmol/L) 3.4 L Chloride (98 - 107 mmol/L) 103 Carbon Dioxide (22 - 30 mmol/L) 31 H Anion Gap (5 - 16) 10 BUN (7 - 17 mg/dL) 24 H Creatinine (0.5 - 1.0 mg/dL) 1.0 Estimated GFR (>60 ml/min) 53 L BUN/Creatinine Ratio (7 - 25 %) 24.0 Lactic Acid Cancelled Troponin I (< 0.11 ng/ml) 0.08 0.10 Triglycerides (<150 mg/dL) 74 Cholesterol (<200 MG/DL) 100 LDL Cholesterol, Calc (65 - 129 mg/dL) 45 L HDL Cholesterol (40 - 60 mg/dL) 41 Cholesterol/HDL Ratio (0.00 - 4.23 %) 2 Coagulation PT (9.4 - 12.5 SEC) 17.5 H INR (0.90 - 1.19) 1.68 H Hematology CBC w Diff NO MAN DIFF REQ WBC (4.8 - 10.8 /CUMM) 10.8 RBC (4.20 - 5.40 /CUMM) 3.80 L Hgb (12.0 - 16.0 G/DL) 12.4 Hct (37 - 47 %) 37.8 MCV (81.0 - 99.0 FL) 99.5 H MCH (27.0 - 31.0 PG) 32.8 H RDW (11.5 - 14.5 %) 13.4 Plt Count (130 - 400 /CUMM) 155 MPV (7.4 - 10.4 FL) 9.7 Gran % (42.2 - 75.2 %) 67.5 Lymphocytes % (20.5 - 51.1 %) 20.9 Monocytes % (1.7 - 9.3 %) 10.7 H Eosinophils % (0 - 5 %) 0.6 Basophils % (0.0 - 2.0 %) 0.3 Absolute Granulocytes (1.4 - 6.5 /CUMM) 7.3 H Absolute Lymphocytes (1.2 - 3.4 /CUMM) 2.3 Absolute Monocytes (0.10 - 0.60 /CUMM) 1.2 H Absolute Eosinophils (0.0 - 0.7 /CUMM) 0.1 Absolute Basophils (0.0 - 0.2 /CUMM) 0 PUBS MCHC (33.0 - 37.0 G/DL) 32.9 L 11/27 11/26 0008 2340 Chemistry Sodium (137 - 145 mmol/L) 140 Potassium (3.5 - 5.1 mmol/L) 3.5 Chloride (98 - 107 mmol/L) 98 Carbon Dioxide (22 - 30 mmol/L) 28 Anion Gap (5 - 16) 14 BUN (7 - 17 mg/dL) 21 H Creatinine (0.5 - 1.0 mg/dL) 1.0 Estimated GFR (>60 ml/min) 53 L BUN/Creatinine Ratio (7 - 25 %) 21.0 Glucose (65 - 99 mg/dL) 215 H Hemoglobin A1c (4.2 - 5.8 %) Pending Lactic Acid (0.7 - 2.1 mmol/L) 1.8 Calcium (8.4 - 10.2 mg/dL) 8.9 Magnesium (1.6 - 2.3 mg/dL) 1.7 Total Bilirubin (0.2 - 1.3 mg/dL) 0.8 AST (14 - 36 U/L) 25 ALT (9 - 52 U/L) 44 Alkaline Phosphatase (<127 U/L) 89 Troponin I (< 0.11 ng/ml) 0.12 *H Total Protein (6.3 - 8.2 g/dL) 6.8 Albumin (3.5 - 5.0 g/dL) 3.7 Globulin (1.9 - 4.2 gm/dL) 3.1 Albumin/Globulin Ratio (1.1 - 2.2 %) 1.2 Amylase (30 - 110 U/L) 49 Lipase (23 - 300 U/L) 50 Coagulation PT (9.4 - 12.5 SEC) 18.3 H INR (0.90 - 1.19) 1.75 H Hematology CBC w Diff NO MAN DIFF REQ WBC (4.8 - 10.8 /CUMM) 10.8 RBC (4.20 - 5.40 /CUMM) 4.07 L Hgb (12.0 - 16.0 G/DL) 13.4 Hct (37 - 47 %) 39.8 MCV (81.0 - 99.0 FL) 98.0 MCH (27.0 - 31.0 PG) 33.0 H RDW (11.5 - 14.5 %) 13.2 Plt Count (130 - 400 /CUMM) 195 MPV (7.4 - 10.4 FL) 10.0 Gran % (42.2 - 75.2 %) 78.3 H Lymphocytes % (20.5 - 51.1 %) 12.1 L Monocytes % (1.7 - 9.3 %) 9.4 H Eosinophils % (0 - 5 %) 0 Basophils % (0.0 - 2.0 %) 0.2 Absolute Granulocytes (1.4 - 6.5 /CUMM) 8.5 H Absolute Lymphocytes (1.2 - 3.4 /CUMM) 1.3 Absolute Monocytes (0.10 - 0.60 /CUMM) 1.0 H Absolute Eosinophils (0.0 - 0.7 /CUMM) 0 Absolute Basophils (0.0 - 0.2 /CUMM) 0 PUBS MCHC (33.0 - 37.0 G/DL) 33.7 Urines Urinalysis HEAVY H Urine Color (YEL,AMB,STR) YEL Urine Clarity (CLEAR) CLDY H Urine pH (5.0 - 8.0) 6.0 Ur Specific [place] (1.001 - 1.035) >= 1.030 Urine Protein (NEG,<30 MG/DL) 100 H Urine Ketones (NEG) 15 H Urine Nitrite (NEG) NEG Urine Bilirubin (NEG) NEG Urine Urobilinogen (0.1 - 1.0 EU/dl) 0.2 Ur Leukocyte Esterase (NEG) SMALL H Ur Microscopic SEDIMENT EXAMINED Urine WBC (0 - 2 /HPF) > 75 H Ur Epithelial Cells (NONE,FEW) RARE Urine Bacteria (NEG/NONE) PACKD H Urine Hemoglobin (NEG) SMALL H Urine Glucose (N MG/DL) >=1000 H Assessment/Plan Assessment/Plan 86-year-old woman with a past medical history of Parkinson's disease, diabetes mellitus, atrial fibrillation (anticoagulated with Coumadin), hyperlipidemia, complete heart block (status post pacemaker), prior colon CA with remote right hemicolectomy and chronic diarrhea. She presented to our emergency room with symptoms of nausea and vomiting, present for approximately 2 weeks; however, acutely worsened on the day of arrival. She was mildly hypotensive on arrival and was noted to have a mild troponin elevation (first level was the peak) Elevated troponin isoenzyme: The patient's overall course is not consistent with an acute coronary syndrome/ type I myocardial infarction rather, more likely consistent with a possible type II event versus troponin isoenzyme elevation in the setting of infection. She is currently asymptomatic from a cardiac standpoint, and given her comorbidities , I believe a conservative approach to her management from a cardiac active would be optimal. We may attempt to add a low-dose beta essence to her regimen. Further discussion regarding a possible workup for an ischemic burden and other cardiac therapies may occur if symptoms recur. Nausea, vomiting A workup for the etiology will continue which would include possible diabetic gastroparesis and others. We will continue to treat symptomatically and maintain IV fluids. Atrial fibrillation: The patient is subtherapeutic from an INR standpoint. If no invasive strategy and for this admission, and coagulation should resume with a targeted INR between 2 and 3. Thank you for allowing us to participate in the care of your patient. Please do not hesitate to contact us further with any questions. Sincerely, Cameron Ni MD [facility] Consult Acknowledgment - Thank you for your consult request.
--- NOTE | 2016-11-27 14:33 | NUR ---
DR CHARLES IN TO SEE PT AND DTR TO DISCUSS PLAN OF CARE. INFORMED DR CHARLES THAT PT WAS ONLY ABLE TO AMBULATE 3 STEPS AND THEN COMPLAINED OF DIZZINESS. DTR STATES PT WAS DISCHARGED FROM [facility] ON OCTOBER 15, IS RECIEVING HOME HEALTH SERVICES AND MANAGING WELL.DTR HOPES TO TAKE PT HOME AFTER DISCHARGE FROM [facility]. PER DR CHARLES PLAN IS TO KEEP PT TONIGHT, DO GI STUDIES IN THE AM, GET PT CONSULT AND DISCHARGE PT HOME WHEN STABLE.
--- NOTE | 2016-11-27 14:35 | NUR ---
CASE MANAGEMENT NOTIFIED OF PLAN PER DR CHARLES
--- NOTE | 2016-11-27 15:27 | PN- Att Addend ---
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, agreed w/resident/PA/MANAGER [employer], discussed with family, reviewed EMR data (avail), discussed w/ nursing Attending Assessment/Plan: Laboratory Tests 11/27/16 1205: Troponin I 0.08 11/27/16 0600: Anion Gap 10, Estimated GFR 53 L, BUN/Creatinine Ratio 24.0, Troponin I 0.10, Triglycerides 74, Cholesterol 100, LDL Cholesterol, Calc 45 L, HDL Cholesterol 41, Cholesterol/HDL Ratio 2, PT 17.5 H, INR 1.68 H, CBC w Diff NO MAN DIFF REQ , RBC 3.80 L, MCV 99.5 H, MCH 32.8 H, RDW 13.4, MPV 9.7, Gran % 67.5, Lymphocytes % 20.9, Monocytes % 10.7 H, Eosinophils % 0.6, Basophils % 0.3, Absolute Granulocytes 7.3 H, Absolute Lymphocytes 2.3, Absolute Monocytes 1.2 H, Absolute Eosinophils 0.1, Absolute Basophils 0, PUBS MCHC 32.9 L 11/27/16 0228: Lactic Acid Cancelled 11/27/16 0008: Urinalysis HEAVY H, Urine Color YEL, Urine Clarity CLDY H, Urine pH 6.0, Ur Specific [place] >= 1.030, Urine Protein 100 H, Urine Ketones 15 H, Urine Nitrite NEG, Urine Bilirubin NEG, Urine Urobilinogen 0.2, Ur Leukocyte Esterase SMALL H, Ur Microscopic SEDIMENT EXAMINED, Urine WBC > 75 H, Ur Epithelial Cells RARE, Urine Bacteria PACKD H, Urine Hemoglobin SMALL H, Urine Glucose >= 1000 H 11/26/16 2340: Anion Gap 14, Estimated GFR 53 L, BUN/Creatinine Ratio 21.0, Glucose 215 H, Hemoglobin A1c Pending, Lactic Acid 1.8, Calcium 8.9, Magnesium 1.7, Total Bilirubin 0.8, AST 25, ALT 44, Alkaline Phosphatase 89, Troponin I 0.12 *H, Total Protein 6.8, Albumin 3.7, Globulin 3.1, Albumin/Globulin Ratio 1.2, Amylase 49, Lipase 50, PT 18.3 H, INR 1.75 H, CBC w Diff NO MAN DIFF REQ, RBC 4.07 L, MCV 98.0, MCH 33.0 H, RDW 13.2, MPV 10.0, Gran % 78.3 H, Lymphocytes % 12.1 L, Monocytes % 9.4 H, Eosinophils % 0, Basophils % 0.2, Absolute Granulocytes 8.5 H, Absolute Lymphocytes 1.3, Absolute Monocytes 1.0 H, Absolute Eosinophils 0, Absolute Basophils 0, PUBS MCHC 33.7 Vital Signs Date Time Temp Pulse Resp B/P B/P Pulse O2 O2 Flow FiO2 Mean Ox Delivery Rate 11/27 1406 97.0 82 22 112/58 94 Room Air 11/27 1053 97.2 75 25 111/64 93 Nasal 2.0L Cannula 11/27 0630 97.2 84 24 126/80 93 Room Air 11/27 0102 97.2 72 20 102/58 96 Room Air 11/26 2324 97.1 85 18 93/58 96 Room Air Patient seen and examined at bedside in emergency room. Discussed with patient as well as patient's daughter at bedside the care plan. 86-year-old female who was recently at rehabilitation in [place] and currently was at home with VNS services who was brought into the emergency room with chief complaint of nausea and vomiting. Patient does have history of diabetes mellitus long-standing and possibility of diabetic gastroparesis. Patient does not have Parkinson's but has history of tardive dyskinesia secondary to antipsychotic medications use. Patient's nausea and vomiting is better now so we will start her on clear liquid diet. We will do the upper GI series as recommended by gastroenterology. We will also get a physical therapy consult in the morning. Based on the physical therapy evaluation as well as upper GI series results we will decide upon the discharge plan. I discussed the rehabilitation option with the patient's daughter and she prefers not to send her back to rehabilitation as she is very happy with the outpatient physical therapy and VNS services and would prefer to take her back home.
--- NOTE | 2016-11-27 15:32 | NUR ---
PT ADMITTED TO ROOM 189-1
--- NOTE | 2016-11-27 15:47 | NUR ---
PT STATUS IS DIRTY IN SYSTEM
--- NOTE | 2016-11-27 16:30 | NUR ---
REPORT CALLED TO JOLIE ON TELE UNIT
[2016-11-27 16:45] VITALS: BP 110/70
[2016-11-27 17:03] VITALS: BP 110/70
--- NOTE | 2016-11-27 17:22 | ECHOCARDIOGRAM REPORT ---
GEORGE NAJERA Age: 86 : 1930 Gender: F Exam Date: 11/27/2016 08:11 Exam Location: ER Ht (in): 57 Wt (lb): 180 BSA: 1.86 BP: 126 / 80 Ordering Physician: PATRICE FRAGA MD Referring Physician: Valente Encarnacion MD Technologist: Ele Benito ALVIN Room Number: ER#[id number] Indications: MYOCARDIAL ISCHEMIA/MN Rhythm: Sinus Technical Quality: Fair FINDINGS Left Ventricle Normal size left ventricle. Left ventricular wall thickness mildly increased. Borderline normal left ventricular ejection fraction estimated at 50-55%. Hypokinetic septum. Abnormal septal motion consistent with left bundle branch block. Right Ventricle Right ventricle at upper limits of normal. Right Atrium Normal right atrial size. Left Atrium Mild to moderate left atrial dilatation. Mitral Valve Mitral valve thickened. Mitral annular calcification. Mild mitral regurgitation. Aortic Valve Trileaflet aortic valve. Diffuse thickening of the aortic valve cusps with reduced excursion. Mild aortic stenosis. Tricuspid Valve Tricuspid valve not well visualized, grossly normal. Mild tricuspid regurgitation. Right ventricular systolic pressure estimated at 30 mmHg. Pulmonic Valve Pulmonic valve not well visualized, grossly normal. [id number] pulmonic regurgitation. Pericardium No pericardial effusion. Great Vessels Normal size aortic root and proximal ascending aorta. CONCLUSIONS 1. Fibrocalcific degeneration is present in the aortic valve with evidence of mild valvular stenosis (PG 14 mmHg; MG 8 mmHg; CARRIE 2.3 cm2). 2. Mitral leaflet thickeiing is present with mild to moderate anular calcification with mild mitral insufficiency and mild to moderatee left atrial enlargement. 3. There is no pericardial fluid detected on this examination. 4. The left ventricular chamber size is normal with mild concentric hypertrophy and an ejection fraction of 50-55%. Abnormal septal motion is present with hypokinesia of the mid to distal septum. 5. Mild tricuspid insufficiency is present with mild to moderate pulmonic insufficiency and no evidence of pulmonary hypertension, 6. Pacemaker wires are present in the right heart chambers. Valente Encarnacion M.D. (Electronically Signed) Final Date: 27 November 2016 17:22 MEASUREMENTS (Male / Female) Normal Values 2D ECHO LV Diastolic Diameter PLAX 4.5 cm 4.2 - 5.9 / 3.9 - 5.3 cm LV Systolic Diameter PLAX 2.9 cm 2.1 - 4.0 cm LV Fractional Shortening PLAX 35.6 % 25 - 46 % LV Ejection Fraction 2D Teich 65.2 % IVS Diastolic Thickness 1.4 cm LVPW Diastolic Thickness 1.4 cm LV Relative Wall Thickness 0.6 RV Internal Dim ED PLAX 2.7 cm 1.9 - 3.8 cm LVOT Diameter 1.9 cm Aortic Root Diameter 2.6 cm LA Systolic Diameter LX 4.6 cm 3.0 - 4.0 / 2.7 - 3.8 cm LA Volume 45.0 cm 18 - 58 / 22 - 52 cm Ascending Aorta Diameter 3.4 cm DOPPLER AV Peak Velocity 193.0 cm/s AV Peak Gradient 14.9 mmHg AV Mean Velocity 135.0 cm/s AV Mean Gradient 8.0 mmHg AV Velocity Time Integral 39.8 cm LVOT Peak Velocity 128.0 cm/s LVOT Peak Gradient 6.6 mmHg LVOT Mean Velocity 81.0 cm/s LVOT Mean Gradient 3.0 mmHg LVOT Velocity Time Integral 29.7 cm LVOT Stroke Volume 84.2 cm AV Area Cont Eq vti 2.1 cm AV Area Cont Eq pk 1.9 cm MV Peak Velocity 161.0 cm/s MV Peak Gradient 10.4 mmHg MV Mean Velocity 86.1 cm/s MV Mean Gradient 3.0 mmHg Mitral E Point Velocity 101.0 cm/s Mitral A Point Velocity 135.0 cm/s Mitral E to A Ratio 0.7 MV PHT Velocity 118.0 cm/s MV Deceleration Lea 353.0 cm/s MV Pressure Half Time 100.3 ms MV Area PHT 2.2 cm MV Deceleration Time 164.0 ms TR Peak Velocity 228.0 cm/s TR Peak Gradient 20.8 mmHg Right Atrial Pressure 5.0 mmHg Pulmonary Artery Systolic Pressu 25.8 mmHg Right Ventricular Systolic Press 25.8 mmHg PV Peak Velocity 102.0 cm/s PV Peak Gradient 4.2 mmHg PV Mean Velocity 65.8 cm/s PV Mean Gradient 2.0 mmHg PV Velocity Time Integral 18.3 cm LV E' Lateral Velocity 4.5 cm/s Mitral E to LV E' Lateral Ratio 22.5 LV E' Septal Velocity 2.8 cm/s Mitral E to LV E' Septal Ratio 35.7
--- NOTE | 2016-11-27 20:03 | NUR ---
[id number] PATIENT ARRIVED TO FLOOR. ALERT BUT CONFUSED AT TIMES. VITAL SIGNS STABLE. DENIES CHEST PAIN. + PULSES. ON 2L OXYGEN VIA NASAL CANNULA. SCAB NOTED TO COCCYX. COCCYX RED BUT BLANCHABLE. BED LOW AND LOCKED. CALL LIGHT WITHIN REACH NO DISCOMFORT NOTED. WILL CONTINUE TO MONITOR
[2016-11-28 00:27] VITALS: BP 98/52
--- NOTE | 2016-11-28 07:27 | PN- Housestaff ---
TIERRA DE GUZMAN,JUVENCIO 11/28/16 0725: Subjective Follow-up For: Diabetic gastroparesis Elevated troponin Atrial Fibrillation Tele-Events Since Last Visit: Single pacing 66-83bpm Subjective: I saw and examined the patient today morning She is lying in the bed, reports she is feeling better, denies any nausea. Reports intention to urinate despite on quinones -- little confused. Review of Systems Constitutional: Reports: see HPI. Comments: ROS negative except the above. Objective Last 24 Hrs of Vital Signs/I&O Vital Signs Date Time Temp Pulse Resp B/P B/P Pulse O2 O2 Flow FiO2 Mean Ox Delivery Rate 11/28 1634 97.4 76 18 175/74 94 Room Air 11/28 0845 96.1 68 17 95/67 94 Nasal 2.0L Cannula 11/28 0027 99.4 64 20 98/52 92 11/28 0000 Nasal 2.0L Cannula Intake & Output 11/28 1600 11/28 0800 11/28 0000 Intake Total 200 150 300 Output Total 150 250 300 Balance 50 -100 0 Intake, IV 150 Intake, Oral 200 300 Output, Urine 150 250 300 Patient 81.647 kg Weight Physical Exam General Appearance: Alert, Oriented X3, Cooperative Skin: No Rashes, No Breakdown HEENT: Atraumatic, PERRLA, EOMI Neck: Supple Cardiovascular: Normal S1, Normal S2 Lungs: Clear to Auscultation, Normal Air Movement Abdomen: Normal Bowel Sounds, Soft, No Tenderness Extremities: No Clubbing, No Cyanosis Current Medications: Current Medications Sig/Mckay Start time Last Medication Dose Route Stop Time Status Admin Acetaminophen 650 MG Q6P PRN 11/27 0130 AC PO Acetaminophen 1,000 MG Q6P PRN 11/27 0130 AC IV Aspirin 81 MG DAILY 11/27 1000 AC 11/28 PO 1136 Atorvastatin Calcium 80 MG 1700 11/27 1700 AC 11/28 PO 1839 Carbidopa/Levodopa 0.5 TAB TID 11/27 1000 AC 11/28 PO 1839 Clozapine 25 MG QPM 11/27 2200 AC 11/27 PO 2217 Clozapine 12.5 MG QAM 11/27 1000 AC 11/28 PO 1136 Dextrose/Sodium 1,000 ML Q13H 11/28 0115 AC 11/28 Chloride IV 1431 Insulin Human Regular 2 UNITS .STK-MED ONE 11/28 0123 DC IV 11/28 0124 Insulin Human Regular 0 Q6 11/27 0600 AC 11/28 SC 1847 Loperamide HCl 2 MG Q6P PRN 11/27 0245 AC PO Nystatin 1 PALLAVI BID 11/27 1000 DC 11/27 TOP 11/28 0959 2218 Ondansetron HCl 4 MG ONCE ONE 11/28 1915 DC 11/28 PO 11/28 191 1904 Ondansetron HCl 4 MG Q6P PRN 11/27 0130 AC IV Pantoprazole Sodium 40 MG BID 11/27 1419 AC 11/28 IV 1136 Potassium Chloride 40 MEQ ONCE ONE 11/28 1900 DC 11/28 PO 11/28 1901 1847 Potassium Chloride 40 MEQ ONCE ONE 11/28 1300 DC 11/28 PO 11/28 1301 1431 Warfarin Sodium 4 MG COUMADIN 1700 ONE 11/28 1700 DC 11/28 PO 11/28 1701 1839 Last 24 Hrs of Lab/Yury Results Last 24 Hrs of Labs/Mics: Laboratory Tests 11/28/16 0606: Anion Gap 9, Estimated GFR > 60, BUN/Creatinine Ratio 20.0, Magnesium 1.7, PT 21.2 H, INR 2.03 H, CBC w Diff NO MAN DIFF REQ, RBC 3.41 L, MCV 98.3, MCH 33.1 H, RDW 13.7, MPV 10.0, Gran % 61.8, Lymphocytes % 25.0, Monocytes % 10.5 H, Eosinophils % 2.2, Basophils % 0.5, Absolute Granulocytes 5.0, Absolute Lymphocytes 2.0, Absolute Monocytes 0.8 H, Absolute Eosinophils 0.2, Absolute Basophils 0, PUBS MCHC 33.7 Lines/Diet/Fluids Lines: peripheral lines Assessment/Plan Assessment: 86F PMH anxiety, Parkinson's, NIDDM, H/o C. difficile, Atrial Fibrillation (on Coumadin), HLD, complete heart block (S/P PPM 2012), Colon cancer S/P right hemicolectomy, with chronic diarrhea and nausea, admitted with intractable nausea and vomiting. She was found to have a troponin of 0.12 without EKG changes and monitored in telemetry. An echocardiogram performed in the emergency room (prelim report) demonstrates an overall preserved LV systolic function with an LVEF of approximately 50%. There is mild septal dyssynchrony as well as distal septal wall hypokinesis Plan Continue to monitor in observation Intractable nausea and vomiting in a long standing diabetic patient * She was started on IV Zofran, Loperamide * Not giving any metoclopramide given history of tardive dyskinesia * Underwent GI series today - ruled out gastric outlet obstruction/ gastroparesis. * Clear liquid diet. * found to have a CBD stone - s/p cholecystectomy stable for discharge today, after removing quinones unable to void on her own. Chronic and stable conditions Parkinsons disease: Carbidopa/Levodopa 0.5 Tab TID CAD: Aspirin 81mg, Atrovastatin 80mg Diarrhea: Loperamide 2mg Q6PRN GERD: Pantopazole 40mEQ Atrial Fibrillation: warfarin 4mg DVT Prophylaxis on warfarin Code Status full code Problem List: 1. Complete heart block 2. Hypertension 3. Hyperlipidemia 4. Diabetes 5. Parkinsonian features 6. Atrial fibrillation 7. Nausea and vomiting 8. Intractable vomiting Pain Ratin Pain Location: n/a Pain Goal: Pain 4 or less Pain Plan: tylenol prn Tomorrow's Labs & Rationales: PT time for warfarin dosing Consulting Request: Consulting Specialty: Cardiology ZENIA MESA MD 11/28/16 1150: Attending MD Review Statement Attending Statement Attending MD Statement: examined this patient, discuss w/resident/PA/MARKET DIRECTOR, agreed w/resident/PA/MARKET DIRECTOR, reviewed EMR data (avail) Attending Assessment/Plan: 86F PMH anxiety, Parkinson's, NIDDM, history of C. difficile, atrial fibrillation on Coumadin, HLD, complete heart block status post post permanent pacemaker in 2012, history of colon cancer status post right hemicolectomy, with chronic diarrhea and nausea, admitted with intractable nausea and vomiting, found to have a troponin of 0.12 without EKG changes. Patient feels better after being treated with Zofran, Loperamide, and IV fluids overnight. Her troponin has peaked. No telemetry events. Patient has generalized weakness and requires assistance with ADLs. Physical exam is normal, labs reviewed. Per case management, patient is safe for discharge as she has 24 hour care at home by family. 1. Intractable nausea and vomiting 2. Demand ischemia 3. Generalizsed weakness Plan - Stable for discharge home - Continue Zofran and Loperamide - Upper GI series is normal - Follow GI and cardiology recommendations - Continue home medications - Outpatient cardiology and GI follow up
[2016-11-28 08:13] LABS: ABSOLUTE BASOPHIL COUNT 0 /CUMM (0.0-0.2); ABSOLUTE EOSINOPHIL COUNT 0.2 /CUMM (0.0-0.7); ABSOLUTE MONOCYTE COUNT 0.8 /CUMM (0.10-0.60); BASOPHIL % 0.5 % (0.0-2.0); EOSINOPHIL % 2.2 % (0-5); GRANULOCYTE % 61.8 % (42.2-75.2); HEMATOCRIT 33.5 % (37-47); MEAN CORPUSCULAR HGB 33.1 PG (27.0-31.0); MEAN CORPUSCULAR HGB CONC 33.7 G/DL (33.0-37.0); MEAN CORPUSCULAR VOLUME 98.3 FL (81.0-99.0); PLATELET COUNT 141 /CUMM (130-400); RBC DISTRIBUTION WIDTH 13.7 % (11.5-14.5); RED BLOOD CELL CT 3.41 /CUMM (4.20-5.40); WHITE BLOOD CELL COUNT 8.1 /CUMM (4.8-10.8)
[2016-11-28 08:26] LABS: PT 21.2 SEC (9.4-12.5)
[2016-11-28 08:45] VITALS: BP 95/67
--- NOTE | 2016-11-28 09:45 | PN- Cardiology ---
Subjective Subjective: The patient reports that she is feeling well. No chest pain. No shortness of breath. No palpitations. No diaphoresis. No nausea or vomiting. Objective Vital Signs and I&Os Vital Signs Date Time Temp Pulse Resp B/P B/P Pulse O2 O2 Flow FiO2 Mean Ox Delivery Rate 11/28 0845 96.1 68 17 95/67 94 Nasal 2.0L Cannula 11/28 0027 99.4 64 20 98/52 92 11/28 0000 Nasal 2.0L Cannula 11/27 1703 98.4 70 20 110/70 95 11/27 1645 98.4 70 20 110/70 95 Nasal 2.0L Cannula 11/27 1406 97.0 82 22 112/58 94 Room Air 11/27 1053 97.2 75 25 111/64 93 Nasal 2.0L Cannula Intake & Output 11/28 1600 11/28 0800 11/28 0000 11/27 1600 11/27 0800 11/27 0000 Intake Total 150 238 499 1357 Output Total 250 300 250 125 Balance -100 0 -150 875 Intake, IV 150 1000 Intake, Oral 300 100 Output, Urine 250 300 250 125 Patient 180 lb 180 lb 180 lb Weight Weight Estimated Measurement Method Physical Exam: Gen: NAD HEENT: normal Lungs: clear to auscultation, normal resp. effort Heart: RRR, S1, S2, 2/6 systolic murmur Abdomen: Soft, nontender, no masses Extremities: No clubbing, cyanosis, or edema. Neuro: Alert and oriented x 3, cranial nerves intact Current Medications: Current Medications Sig/Mckay Start time Last Medication Dose Route Stop Time Status Admin Acetaminophen 650 MG Q6P PRN 11/27 0130 AC PO Acetaminophen 1,000 MG Q6P PRN 11/27 0130 AC IV Aspirin 81 MG DAILY 11/27 1000 AC 11/27 PO 0952 Atorvastatin Calcium 80 MG 1700 11/27 1700 AC 11/27 PO 1809 Carbidopa/Levodopa 0.5 TAB TID 11/27 1000 AC 11/27 PO 2218 Clozapine 25 MG QPM 11/27 2200 AC 11/27 PO 2217 Clozapine 12.5 MG QAM 11/27 1000 AC 11/27 PO 0952 Dextrose/Sodium 1,000 ML Q13H 11/28 0115 AC 11/28 Chloride IV 0127 Dextrose/Sodium 1,000 ML Q13H 11/27 0245 DC 11/27 Chloride IV 11/27 1544 0755 Insulin Human Regular 2 UNITS .STK-MED ONE 11/28 0123 DC IV 11/28 0124 Insulin Human Regular 0 Q6 11/27 0600 AC 11/28 SC 0604 Loperamide HCl 2 MG Q6P PRN 11/27 0245 AC PO Nystatin 1 PALLAVI BID 11/27 1000 AC 11/27 TOP 11/28 0959 2218 Ondansetron HCl 4 MG Q6P PRN 11/27 0130 AC IV Pantoprazole Sodium 0 .STK-MED ONE 11/27 1517 DC IV Pantoprazole Sodium 40 MG BID 11/27 1419 AC 11/27 IV 2218 Potassium Chloride 0 .STK-MED ONE 11/27 1347 DC PO Potassium Chloride 40 MEQ ONCE ONE 11/27 1315 DC 11/27 PO 11/27 1316 1348 Warfarin Sodium 4 MG COUMADIN 1700 ONE 11/27 1700 DC 11/27 PO 11/27 1701 1810 Results Last 48 Hrs of Labs/Mics: Laboratory Tests 11/28/16 0606: Anion Gap 9, Estimated GFR > 60, BUN/Creatinine Ratio 20.0, Magnesium 1.7, PT 21.2 H, INR 2.03 H, CBC w Diff NO MAN DIFF REQ, RBC 3.41 L, MCV 98.3, MCH 33.1 H, RDW 13.7, MPV 10.0, Gran % 61.8, Lymphocytes % 25.0, Monocytes % 10.5 H, Eosinophils % 2.2, Basophils % 0.5, Absolute Granulocytes 5.0, Absolute Lymphocytes 2.0, Absolute Monocytes 0.8 H, Absolute Eosinophils 0.2, Absolute Basophils 0, PUBS MCHC 33.7 11/27/16 1205: Troponin I 0.08 11/27/16 0600: Anion Gap 10, Estimated GFR 53 L, BUN/Creatinine Ratio 24.0, Troponin I 0.10, Triglycerides 74, Cholesterol 100, LDL Cholesterol, Calc 45 L, HDL Cholesterol 41, Cholesterol/HDL Ratio 2, PT 17.5 H, INR 1.68 H, CBC w Diff NO MAN DIFF REQ , RBC 3.80 L, MCV 99.5 H, MCH 32.8 H, RDW 13.4, MPV 9.7, Gran % 67.5, Lymphocytes % 20.9, Monocytes % 10.7 H, Eosinophils % 0.6, Basophils % 0.3, Absolute Granulocytes 7.3 H, Absolute Lymphocytes 2.3, Absolute Monocytes 1.2 H, Absolute Eosinophils 0.1, Absolute Basophils 0, PUBS MCHC 32.9 L 11/27/16 0228: Lactic Acid Cancelled 11/27/16 0008: Urinalysis HEAVY H, Urine Color YEL, Urine Clarity CLDY H, Urine pH 6.0, Ur Specific [place] >= 1.030, Urine Protein 100 H, Urine Ketones 15 H, Urine Nitrite NEG, Urine Bilirubin NEG, Urine Urobilinogen 0.2, Ur Leukocyte Esterase SMALL H, Ur Microscopic SEDIMENT EXAMINED, Urine WBC > 75 H, Ur Epithelial Cells RARE, Urine Bacteria PACKD H, Urine Hemoglobin SMALL H, Urine Glucose >= 1000 H 11/26/16 2340: Anion Gap 14, Estimated GFR 53 L, BUN/Creatinine Ratio 21.0, Glucose 215 H, Hemoglobin A1c Pending, Lactic Acid 1.8, Calcium 8.9, Magnesium 1.7, Total Bilirubin 0.8, AST 25, ALT 44, Alkaline Phosphatase 89, Troponin I 0.12 *H, Total Protein 6.8, Albumin 3.7, Globulin 3.1, Albumin/Globulin Ratio 1.2, Amylase 49, Lipase 50, PT 18.3 H, INR 1.75 H, CBC w Diff NO MAN DIFF REQ, RBC 4.07 L, MCV 98.0, MCH 33.0 H, RDW 13.2, MPV 10.0, Gran % 78.3 H, Lymphocytes % 12.1 L, Monocytes % 9.4 H, Eosinophils % 0, Basophils % 0.2, Absolute Granulocytes 8.5 H, Absolute Lymphocytes 1.3, Absolute Monocytes 1.0 H, Absolute Eosinophils 0, Absolute Basophils 0, PUBS MCHC 33.7 Assessment/Plan Assessment/Plan Assessment: 1. Diabetes mellitus 2. Atrial fibrillation, anticoagulated on warfarin 3. Permanent pacemaker 4. Nausea and vomiting, likely secondary to gastroparesis 5. Mild troponin elevation secondary to demand ischemia Plan: * Continue current cardiac medications. * Dose warfarin for INR 2-3. * Supplement potassium. * Follow up with Dr. Encarnacion after discharge. Continue telemetry? Yes
--- NOTE | 2016-11-28 11:35 | RADIOLOGY REPORT ---
EXAMINATION: [place] UPPER GI SERIES CLINICAL INFORMATION: 86-year-old female with nausea and vomiting. Evaluate for gastroparesis. COMPARISON: CT abdomen and pelvis from 11/15/2016. TECHNIQUE: A single contrast upper GI series with fluoroscopy and spot imaging was performed. The patient ingested low density barium without difficulty and was evaluated in the semiupright and recumbent positions. FLUOROSCOPY TIME: 1 minute, 55 seconds NUMBER OF IMAGES: 14 FINDINGS: Patient complained of nausea and weakness. She was unable to be placed in an upright position for a prolonged period of time. Also, she was unable to roll into a prone position on the examination table. Therefore, swallowing function and esophageal motility were not fully evaluated. Esophagus demonstrated normal course and caliber. No evidence of esophageal mass, stricture or hiatal hernia. Patient complained of nausea and swallowed a relatively small volume of barium contrast. Stomach was normal in size. The gastric rugal fold thickness was normal. No evidence of gastric mass or ulceration. When the patient was placed in a right lateral decubitus position, there is normal transit of contrast into the duodenum. No evidence of duodenal ulceration, mass or duodenal mucosal thickening. IMPRESSION: Normal upper gastrointestinal series. No evidence of gastric outlet obstruction or gastroparesis.
--- NOTE | 2016-11-28 13:07 | Patient Discharge Instructions ---
Discharge Instructions General Discharge Information You were seen/treated for: Nausea and vomiting You had these procedures: Upper GI series to see whether there is any obstruction (negative) Special Instructions: Please follow up with your PCP () in a week Please follow up with in a week Please take your medications regularly. Please see your doll repairer within one week of discharge. Please avoid taking Reglan(metoclopropamide). Diet Recommended Diet: Diabetic Activity Activity Self Limited: Yes Acute Coronary Syndrome Inclusion Criteria At DC or during hospital stay patient has or had the following: ACS DIAGNOSIS No Discharge Core Measures Meds if any: Prescribed or Continued at Discharge Meds if any: NOT Prescribed or Continued at Discharge Congestive Heart Failure Inclusion Criteria At DC or during hospital stay patient has or had the following: CHF DIAGNOSIS No Discharge Core Measures Meds if any: Prescribed or Continued at Discharge Meds if any: NOT Prescribed or Continued at Discharge Cerebrovascular accident Inclusion Criteria At DC or during hospital stay patient has or had the following: CVA/TIA Diagnosis No Discharge Core Measures Meds if any: Prescribed or Continued at Discharge Meds if any: NOT Prescribed or Continued at Discharge Venous thromboembolism Inclusion Criteria VTE Diagnosis No VTE Type NONE VTE Confirmed by (Test) NONE Discharge Core Measures - Per Current guidelines, there needs to be overlap - treatment for the first 5 days of Warfarin therapy. - If discharged on Warfarin prior to 5 days of - overlap therapy, the patient will need to be - assessed for post discharge needs including - *Post discharge parental anticoagulation - *Warfarin and/or parental anticoagulation education - *Follow up date to check INR post discharge At least 5 days overlap therapy as Inpatient No Meds if any: Prescribed or Continued at Discharge Note: Overlap Therapy is Warfarin and Anticoagulant Meds if any: NOT Prescribed or Continued at Discharge
--- NOTE | 2016-11-28 14:39 | NUR ---
pt to be discharged home. Daughter Ivanna called requesting a call with d/c instructions when pt is discharged as pt is confused.
[2016-11-28 16:34] VITALS: BP 175/74
[2016-11-29 00:51] VITALS: BP 115/58
--- NOTE | 2016-11-29 07:35 | PN- Housestaff ---
ROXANA NAVARRETE 11/29/16 0734: Subjective Follow-up For: Diarrhea Intractable nausea and vomiting Tele-Events Since Last Visit: Off telemetry. Subjective: Pt comfortable. She was shaking this mornign, when I saw her, but improved over a few hours. Did not have any more chills. She voided with no difficulty this a.m. Vitals were stable. Remained afebrile overnight. Continues to be on room air. Discussed with the patient's family, anthony-daughter and she expressed concern that Reglan was discontinued. Explained to her about the risks involved. Dr. Mesa was present at that time, and was ascertained that Reglan could be used as needed only. Patient's family understands the risks, but would like to use the medication only as needed. Also provided the prescription for protonix. Discussed w/ the attending physician. Review of Systems Constitutional: Reports: see HPI. Objective Last 24 Hrs of Vital Signs/I&O Vital Signs Date Time Temp Pulse Resp B/P B/P Pulse O2 O2 Flow FiO2 Mean Ox Delivery Rate 11/29 0051 98.4 63 18 115/58 93 Room Air 11/28 1634 97.4 76 18 175/74 94 Room Air 11/28 0845 96.1 68 17 95/67 94 Nasal 2.0L Cannula Intake & Output 11/29 0800 11/29 0000 11/28 1600 Intake Total 550 200 Output Total 300 150 Balance 250 50 Intake, IV 200 Intake, Oral 350 200 Number 0 Bowel Movements Output, Urine 300 150 Physical Exam General Appearance: No Acute Distress Other Physical Findings: General Exam: AAOx3, No acute distress, Skin: No rashes, no breakdown HEENT: PERRLA, EOMI Neck: Supple, No JVD No cervical lymphadenopathy CVS: Reg Rate, Normal S1,S2, No MGR Resp: Normal air entry, no ronchi/rales Abdomen: Soft, No tenderness, Normal Bowel Sounds Neuro: Normal Speech, Strength 5/5 b/l x 4 extremities, Sensation intact, CN III -XII NL, Reflexes 2+ Extremities: No cyanosis, pedal edema Current Medications: Current Medications Sig/Mckay Start time Last Medication Dose Route Stop Time Status Admin Acetaminophen 650 MG Q6P PRN 11/27 129 AC PO Acetaminophen 1,000 MG Q6P PRN 04/23 0130 AC IV Aspirin 81 MG DAILY 11/27 1000 AC 11/28 PO 1136 Atorvastatin Calcium 80 MG 1700 11/27 1700 AC 11/28 PO 1839 Carbidopa/Levodopa 0.5 TAB TID 11/27 1000 AC 11/28 PO 2208 Clozapine 25 MG QPM 11/27 2200 AC 11/28 PO 2309 Clozapine 12.5 MG QAM 11/27 1000 AC 11/28 PO 1136 Dextrose/Sodium 1,000 ML Q13H 11/28 0115 AC 11/28 Chloride IV 1431 Insulin Human Regular 4 UNITS .STK-MED ONE 11/28 1848 DC IV 11/28 1849 Insulin Human Regular 0 Q6 11/27 0600 AC 11/29 SC 0637 Loperamide HCl 2 MG Q6P PRN 11/27 0245 AC PO Nystatin 1 PALLAVI BID 11/27 1000 DC 11/27 TOP 11/28 0959 2218 Ondansetron HCl 4 MG ONCE ONE 11/28 1915 DC 11/28 PO 11/28 1916 1904 Ondansetron HCl 4 MG Q6P PRN 11/27 0130 AC IV Pantoprazole Sodium 40 MG BID 11/27 1419 AC 11/28 IV 2208 Potassium Chloride 40 MEQ ONCE ONE 11/28 1900 DC 11/28 PO 11/28 1901 1847 Potassium Chloride 40 MEQ ONCE ONE 11/28 1300 DC 11/28 PO 11/28 1301 1431 Warfarin Sodium 4 MG COUMADIN 1700 ONE 11/28 1700 DC 11/28 PO 11/28 1701 1839 Last 24 Hrs of Lab/Yury Results Last 24 Hrs of Labs/Mics: Laboratory Tests 11/29/16 0608: PT 25.3 H, INR 2.43 H Assessment/Plan Assessment: 86F PMH anxiety, Parkinson's, NIDDM, H/o C. difficile, Atrial Fibrillation (on Coumadin), HLD, complete heart block (S/P PPM 2012), Colon cancer S/P right hemicolectomy, with chronic diarrhea and nausea, admitted with intractable nausea and vomiting. She was found to have a troponin of 0.12 without EKG changes and monitored in telemetry. An echocardiogram performed in the emergency room (prelim report) demonstrates an overall preserved LV systolic function with an LVEF of approximately 50%. There is mild septal dyssynchrony as well as distal septal wall hypokinesis Plan Continue to monitor in observation Intractable nausea and vomiting in a long standing diabetic patient * She was started on IV Zofran, Loperamide * Avoid metoclopramide given history of tardive dyskinesia * Underwent GI series today - ruled out gastric outlet obstruction/ gastroparesis. * Clear liquid diet was changed to regular diet. * found to have a CBD stone - s/p cholecystectomy stable for discharge today, after the patient tolerates diet. Chronic and stable conditions Parkinsons disease: Carbidopa/Levodopa 0.5 Tab TID CAD: Aspirin 81mg, Atrovastatin 80mg Diarrhea: Loperamide 2mg Q6PRN GERD: Pantopazole 40mEQ Atrial Fibrillation: warfarin 4mg dose this a.m. INR was 2.43. DVT Prophylaxis on warfarin Code Status full code Problem List: 1. Intractable vomiting 2. Dehydration syndrome Pain Ratin Pain Location: None Pain Goal: Pain 4 or less Pain Plan: Tylenol when necessary Tomorrow's Labs & Rationales: No labs necessary. Patient to be discharged. Consulting Request: Consulting Specialty: Cardiology ZENIA MESA MD 11/29/16 1159: Attending MD Review Statement Attending Statement Attending MD Statement: examined this patient, discuss w/resident/PA/NAUMKEAG OPERATOR, agreed w/resident/PA/NAUMKEAG OPERATOR, reviewed EMR data (avail) Attending Assessment/Plan: 86F PMH anxiety, Parkinson's, NIDDM, history of C. difficile, atrial fibrillation on Coumadin, HLD, complete heart block status post post permanent pacemaker in 2012, history of colon cancer status post right hemicolectomy, with chronic diarrhea and nausea, admitted with intractable nausea and vomiting, found to have a troponin of 0.12 without EKG changes. Patient feels better after being treated with Zofran, Loperamide, and IV fluids overnight. Her troponin has peaked. No telemetry events. Patient has generalized weakness and requires assistance with ADLs. Physical exam is normal, labs reviewed. Per case management, patient is safe for discharge as she has 24 hour care at home by family. Patient was kept overnight as she had acute urinary retention. She has however urinated twice this morning without difficulty. Urine culture growing phelan- sensitive E.coli but believe this is just colonization and does not require antibiotics. Tolerated liquid diet well this morning, will advance to regular diet today. 1. Intractable nausea and vomiting 2. Demand ischemia 3. Generalizsed weakness Plan - Stable for discharge home after eating regular diet for lunch - Continue Zofran and Loperamide - Upper GI series is normal - Follow GI and cardiology recommendations - Continue home medications - Outpatient cardiology and GI follow up
[2016-11-29 08:29] LABS: PT 25.3 SEC (9.4-12.5)
[2016-11-29 09:08] VITALS: BP 140/54
--- NOTE | 2016-11-29 13:00 | Discharge Summary ---
Visit Information Visit Dates Admission Date: 11/27/16 Discharge Date: 11/29/16 Hospital Course Course Attending Physician: ZENIA MESA MD Primary Care Physician: LAZARA LIVE MD Consulting Request: Consulting Specialty: Cardiology Hospital Course: Ms Ureña is an 86-year-old woman who has a past history of Parkinson's (drug- induced), diabetes, atrial fibrillation (on Coumadin), complete heart block status post permanent pacemaker (2012), colon cancer status post hemicolectomy, history of chronic diarrhea was evaluated for intractable nausea and vomiting 2 weeks prior to admission. At the time of admission, lab findings indicated hemoglobin 13.4, WBC 10.8, platelets 195, electrolytes-sodium 140, potassium 3.5 (replenished during the stay in the hospital), bicarbonate 28, renal function-normal BUN 21, creatinine 1.0. Normal liver function AST-25, ALT 44, alkaline phosphatase 89, total bilirubin 0.8. Elevation in cardiac enzyme-troponin I 0.12, with no abnormal EKG findings (no ST-T wave changes). Serum amylase 49, lipase 50. INR 1.75. Since the patient had a history of atrial fibrillation, and elevated cardiac enzymes, she was admitted to telemetry unit for further monitoring. Serial cardiac enzymes and electrocardiograms were done. Differential diagnosis: #1 gastroparesis #2 abnormal cardiac enzymes #3 atrial fibrillation Below is the problem list and plan: #1 intractable nausea and vomiting-She was monitored closely on telemetry. She did not have any furterh episoses of vomiting, and felt improved. She was not re -started on Metoclopramide given the hisotry of tardive dyskinesia. Upper GI series revealed no evidence of gastric outlet obstruction or gastroparesis. As per the patient's family, anthony-daughter and she expressed concern that Reglan was discontinued. Explained to her about the risks involved, and the pt would use it if needed only. Patient's family understood the risks. #2 Mild troponin elevation secondary to demand ischemia- Pt was in atrial fibriallation, anticoaguated on warfarin. Production Recovery Operator, Dr. hackett was consulted for adviced. Allergies: Coded Allergies: Opioids - Morphine Analogues (Intermediate, SEVERE NAUSEA/VOMITING 09/19/16) hydromorphone (Intermediate, SEVERE NAUSEA/VOMITING 09/19/16) morphine (Intermediate, VOMITING 09/19/16) Pertinent Lab Results: RAD - XRY-UPPER GI SERIES 11/28/16-0600 Normal upper gastrointestinal series. No evidence of gastric outlet obstruction or gastroparesis. ------- US - US-LIMITED ABDOMEN 11/27/16-1000 1. Gallbladder is surgically absent and common duct is mildly dilated, measuring 0.9 cm diameter, unchanged compared to 01/30/2015. 2. Liver appears diffusely hyperechoic -- suggestive of steatosis. ECHOCARDIOGRAM 11/27/16- 1. Fibrocalcific degeneration is present in the aortic valve with evidence of mild valvular stenosis (PG 14 mmHg; MG 8 mmHg; CARRIE 2.3 cm2). 2. Mitral leaflet thickeiing is present with mild to moderate anular calcification with mild mitral insufficiency and mild to moderatee left atrial enlargement. 3. There is no pericardial fluid detected on this examination. 4. The left ventricular chamber size is normal with mild concentric hypertrophy and an ejection fraction of 50-55%. Abnormal septal motion is present with hypokinesia of the mid to distal septum. 5. Mild tricuspid insufficiency is present with mild to moderate pulmonic insufficiency and no evidence of pulmonary hypertension, 6. Pacemaker wires are present in the right heart chambers. Disposition Summary Disposition Principal Diagnosis: Vomiting Additional Diagnosis: Atrial fibrillation, anticoagulated on warfarin Discharge Disposition: home or self care Discharge Instructions General Discharge Information Code Status: Full Code Patient's Diet: hearth healthy idet Patient's Activity: as tolerated. Follow-Up Instructions/Appts: Please follow up with your PCP () in a week Please follow up with in a week Please take your medications regularly. Please see your filter bed placer within one week of discharge. Please avoid taking Reglan(metoclopropamide). Us it only as needed. Medications at Discharge Discharge Medications: Continue taking these medications: Clozapine (Clozaril) 25 MG TABLET 0.5 Tablet ORAL DAILY @8 AM Days = 30 Comments: GIVEN 11/29/16 @9AM Glipizide (Glipizide XL) 5 MG TAB.ER.24 1 Tablet ORAL Every Morning Comments: NOT GIVEN THIS ADMISSION Carbidopa/Levodopa (Sinemet 25-100 MG Tablet) 25 MG-100 MG TABLET 0.5 Tablet ORAL THREE TIMES DAILY Comments: GIVEN 11/29/16 @ 3:30 PM Multivitamin (Multiple Vitamins) 1 EACH TABLET 1 Tablet ORAL DAILY Comments: NOT GIVEN THIS ADMISSION Alprazolam (Alprazolam) 0.5 MG TABLET 1 Tablet ORAL as needed for ANXIETY/SLEEP Comments: NOT GIVEN Loperamide HCl (Loperamide) 2 MG CAPSULE 1 Capsule ORAL As Directed as needed for DIARRHEA Comments: NOT GIVEN THIS ADMISSION Cholecalciferol (Vitamin D3) (Vitamin D3) 1,000 UNIT CAPSULE 1 Capsule ORAL TWICE DAILY Comments: Last Taken:NOT GIVEN IN HOSPITAL Time:PER PT MED LIST Pyridoxine HCl (Vitamin B-6) 100 MG TABLET 1 Tablet ORAL THREE TIMES DAILY Comments: NOT GIVEN THIS ADMISSION Warfarin Sodium (Coumadin) 4 MG TABLET 1 Tablet ORAL As Directed Instructions: Dose coumadin to keep the INR between 2-3. Please discuss with your PCP, for further instructions. Comments: GIVEN 11/29/16 @ 3:30 PM Simvastatin (Zocor*) 20 MG TABLET 1 Tablet ORAL DAILY Comments: GIVEN LIPITOR IN HOSPITAL ON 11/29/16 @ 3:30 PM Ondansetron (Zofran Odt) 4 MG TAB.RAPDIS 1 Tablet SUBLINGUAL As Directed as needed for NAUSEA Comments: GIVEN IV IN HOSPITAL ON 11/27/16 @ 2340 Cyclobenzaprine HCl (Cyclobenzaprine HCl) 10 MG TABLET 1 Tablet ORAL As Directed as needed for BACK PAIN Comments: NOT GIVEN THIS ADMISSION Clozapine (Clozaril) 25 MG TABLET 1 Tablet ORAL Every night Days = 30 Comments: GIVEN 11/28/16 @ 2220 Prochlorperazine Maleate (Compazine) 10 MG TABLET 1 Tablet ORAL EVERY SIX HOURS as needed for NAUSEA Days = 30 Start taking the following new medications: Metoclopramide HCl (Reglan) 10 MG TABLET 1 Tablet ORAL THREE TIMES DAILY as needed for severe nausea and vomiting Qty = 30 No Refills Instructions: 30 minutes before meals and bedtime. Please take it only if needed. Please note that this medication causes tardive dyskinesia. If you note any symptoms, please seek medical attention immediately. Copies To: MARIA T DE GUZMAN,LAZARA Anderson Attending MD Review Statement Documenting Attending: BONITA DE GUZMAN,ZENIA
--- NOTE | 2016-11-29 13:14 | PN- Cardiology ---
Subjective Subjective: Feeling well. No chest pain. No shortness of breath. No palpitations. No diaphoresis. No nausea or vomiting. Objective Vital Signs and I&Os Vital Signs Date Time Temp Pulse Resp B/P B/P Pulse O2 O2 Flow FiO2 Mean Ox Delivery Rate 11/29 0908 98.5 75 20 140/54 947 Room Air 11/29 0051 98.4 63 18 115/58 93 Room Air 11/28 1634 97.4 76 18 175/74 94 Room Air Intake & Output 11/29 1600 11/29 0811/29 0000 11/28 1600 11/28 0811/28 0000 Intake Total 640 550 200 150 300 Output Total 300 150 250 300 Balance 640 250 50 -100 0 Intake, IV 400 200 150 Intake, Oral 240 350 200 300 Number 0 Bowel Movements Output, Urine 300 150 250 300 Patient 180 lb Weight Physical Exam: HEENT: normal Lungs: clear to auscultation, normal resp. effort Heart: RRR, S1, S2, 2/6 systolic murmur Abdomen: Soft, nontender, no masses Extremities: No clubbing, cyanosis, or edema. Neuro: Alert and oriented x 3, cranial nerves intact Current Medications: Current Medications Sig/Mckay Start time Last Medication Dose Route Stop Time Status Admin Acetaminophen 650 MG Q6P PRN 11/27 0130 AC PO Acetaminophen 1,000 MG Q6P PRN 11/27 0130 AC IV Aspirin 81 MG DAILY 11/27 1000 AC 11/29 PO 0912 Atorvastatin Calcium 80 MG 1700 11/27 1700 AC 11/28 PO 1839 Carbidopa/Levodopa 0.5 TAB TID 11/27 1000 AC 11/29 PO 0913 Clozapine 25 MG QPM 11/27 2200 AC 11/28 PO 2309 Clozapine 12.5 MG QAM 11/27 1000 AC 11/29 PO 0913 Dextrose/Sodium 1,000 ML Q13H 11/28 0115 DC 11/28 Chloride IV 1431 Insulin Human Regular 2 UNITS .STK-MED ONE 11/29 0150 DC IV 11/29 0151 Insulin Human Regular 4 UNITS .STK-MED ONE 11/28 1848 DC IV 11/28 1849 Insulin Human Regular 0 Q6 11/27 0600 11/29 SC 1309 Loperamide HCl 2 MG Q6P PRN 11/27 0245 AC PO Ondansetron HCl 4 MG ONCE ONE 11/28 1914 DC 11/28 PO 11/29 1915 190 Ondansetron HCl 4 MG Q6P PRN 11/27 0130 AC IV Pantoprazole Sodium 40 MG BID 11/27 1419 AC 11/29 IV 0912 Potassium Chloride 40 MEQ ONCE ONE 11/28 1900 DC 11/28 PO 11/28 190 1847 Warfarin Sodium 4 MG COUMADIN 1700 ONE 11/29 1700 AC PO 11/29 1701 Warfarin Sodium 4 MG COUMADIN 1700 ONE 11/28 1700 DC 11/28 PO 11/28 170 1839 Results Last 48 Hrs of Labs/Mics: Laboratory Tests 11/29/16 0608: PT 25.3 H, INR 2.43 H 11/28/16 0606: Anion Gap 9, Estimated GFR > 60, BUN/Creatinine Ratio 20.0, Magnesium 1.7, PT 21.2 H, INR 2.03 H, CBC w Diff NO MAN DIFF REQ, RBC 3.41 L, MCV 98.3, MCH 33.1 H, RDW 13.7, MPV 10.0, Gran % 61.8, Lymphocytes % 25.0, Monocytes % 10.5 H, Eosinophils % 2.2, Basophils % 0.5, Absolute Granulocytes 5.0, Absolute Lymphocytes 2.0, Absolute Monocytes 0.8 H, Absolute Eosinophils 0.2, Absolute Basophils 0, PUBS MCHC 33.7 Recent Imaging Studies: Echocardiogram: 1. Fibrocalcific degeneration is present in the aortic valve with evidence of mild valvular stenosis (PG 14 mmHg; MG 8 mmHg; CARRIE 2.3 cm2). 2. Mitral leaflet thickeiing is present with mild to moderate anular calcification with mild mitral insufficiency and mild to moderatee left atrial enlargement. 3. There is no pericardial fluid detected on this examination. 4. The left ventricular chamber size is normal with mild concentric hypertrophy and an ejection fraction of 50-55%. Abnormal septal motion is present with hypokinesia of the mid to distal septum. 5. Mild tricuspid insufficiency is present with mild to moderate pulmonic insufficiency and no evidence of pulmonary hypertension, 6. Pacemaker wires are present in the right heart chambers. Assessment/Plan Assessment/Plan Assessment: 1. Diabetes mellitus 2. Atrial fibrillation, anticoagulated on warfarin 3. Permanent pacemaker 4. Nausea and vomiting, likely secondary to gastroparesis 5. Mild troponin elevation secondary to demand ischemia Plan: * Continue current cardiac medications. * Dose warfarin for INR 2-3. * Supplement potassium. * Follow up with Dr. Encarnacion after discharge. Continue telemetry? Yes
[2016-11-29] MEDS ORDERED: REGLAN10 M1 PO ×2 (14:21→15:16)
== END 2016-11-29 16:25 | disposition home health service (06) ==
LOC: ERH 23:16 → ERHI 11-27 00:44 → 1NO 11-27 00:44 → ENRESERV 11-27 01:21 → 1NO 11-27 16:46 → ENPENDDIS 11-29 15:45 → 1NO 11-29 16:25
PROVIDERS: Internal Medicine; Internal Medicine Infectious Disease; Physician Assistant Medical; ADMIT Internal Medicine
DX: R11.2 Nausea with vomiting, unspecified (principal); K52.9 Noninfective gastroenteritis and colitis, unspecified; G20 Parkinson's disease; I48.91 Unspecified atrial fibrillation; I44.2 Atrioventricular block, complete; Z95.0 Presence of cardiac pacemaker; E78.5 Hyperlipidemia, unspecified; E11.9 Type 2 diabetes mellitus without complications; K21.9 Gastro-esophageal reflux disease without esophagitis; F31.9 Bipolar disorder, unspecified; Z85.038 Personal history of other malignant neoplasm of large intestine; Z79.84 Long term (current) use of oral hypoglycemic drugs; Z79.01 Long term (current) use of anticoagulants
CPT/HCPCS: 36415; 74240; 81001; 82436; 87086; 93005; 93010; 93306; 96374; 96376; 97116-GP; 97161-GP; G0378; G8978-GP; G8979-GP; J0696; J1815; J2405; J3101; J3490; J7042

== ENCOUNTER 2016-11-30 14:03 | Emergency (ER) | payer OTHER, MEDICARE ==
[~2016-11-30] VITALS: Ht 162.6 cm; Wt 79.4 kg
[~2016-11-30 14:03] MED LIST changes: +COMPAZINE10 M1 PO
--- NOTE | 2016-11-30 15:28 | ED GI/GU/ABDOMINAL COMPLAINT ---
History of Present Illness General Chief Complaint: General Adult Stated Complaint: BIBA WITH VOMITING BLOOD Source: patient, family, old records, EMS Exam Limitations: clinical condition Vital Signs & Intake/Output Vital Signs & Intake/Output Vital Signs Date Time Temp Pulse Resp B/P B/P Pulse O2 O2 Flow FiO2 Mean Ox Delivery Rate 11/30 1802 78 18 168/82 96 Room Air 11/30 1653 97.4 68 16 184/83 98 Room Air 11/30 1630 97.2 74 18 190/77 96 Room Air 11/30 1418 97.8 68 18 125/68 96 Room Air ED Intake and Output 12/01 0000 11/30 1200 Intake Total 100 Output Total Balance 100 Intake, Oral 100 Patient 175 lb Weight Weight Reported by Patient Measurement Method Allergies Coded Allergies: Opioids - Morphine Analogues (Intermediate, SEVERE NAUSEA/VOMITING 09/19/16) hydromorphone (Intermediate, SEVERE NAUSEA/VOMITING 09/19/16) morphine (Intermediate, VOMITING 09/19/16) Reconcile Medications Alprazolam 0.5 MG TABLET 1 TAB PO PRN ANXIETY/SLEEP (Reported) Carbidopa/Levodopa (Sinemet 25-100 MG Tablet) 25 MG-100 MG TABLET 0.5 TAB PO TID SIDE EFFECTS FROM MEDS (Reported) Cholecalciferol (Vitamin D3) (Vitamin D3) 1,000 UNIT CAPSULE 1 CAP PO BID SUPPLEMENT (Reported) Clozapine (Clozaril) 25 MG TABLET 0.5 TAB PO 0800 MENTAL HEALTH (Reported) Clozapine (Clozaril) 25 MG TABLET 1 TAB PO QPM MENTAL HEALTH (Reported) Cyclobenzaprine HCl 10 MG TABLET 1 TAB PO AD PRN BACK PAIN (Reported) Glipizide (Glipizide XL) 5 MG TAB.ER.24 1 TAB PO QAM DM (Reported) Loperamide HCl (Loperamide) 2 MG CAPSULE 1 CAP PO AD PRN DIARRHEA (Reported) Metoclopramide HCl (Reglan) 10 MG TABLET 1 TAB PO TID PRN severe nausea and vomiting 30 minutes before meals and bedtime. Please take it only if needed. Please note that this medication causes tardive dyskinesia. If you note any symptoms, please seek medical attention immediately. Multivitamin (Multiple Vitamins) 1 EACH TABLET 1 TAB PO DAILY SUPPLEMENT ( Reported) Ondansetron (Zofran Odt) 4 MG TAB.RAPDIS 1 TAB SL AD PRN NAUSEA (Reported) Prochlorperazine Maleate (Compazine) 10 MG TABLET 1 TAB PO Q6 PRN NAUSEA ( Reported) Pyridoxine HCl (Vitamin B-6) 100 MG TABLET 1 TAB PO TID SUPPLEMENT (Reported) Simvastatin (Zocor*) 20 MG TABLET 1 TAB PO DAILY CHOLESTEROL (Reported) Warfarin Sodium (Coumadin) 4 MG TABLET 1 TAB PO AD BLOOD THINNER (Reported) Dose coumadin to keep the INR between 2-3. Please discuss with your PCP, for further instructions. Triage Note: 3 BIBA FROM HOME, VOMITED BLOOD X 1 TODAY. (MODERATE AMOUNT. ALERT, ANXIOUS, PALE. DENIES ABDOMINAL OR CHEST PAIN. DISCHARGED FROM [facility] LAST PM AT 1700. Triage Nurses Notes Reviewed? yes ? N Is pt currently ? No Onset: Gradual Duration: week(s): (2) Timing: single episode today Activities at Onset: sleep Prior Abdominal Problems: similar symptoms Modifying Factors: Worsens With: eating. Associated Symptoms: nausea/vomiting, BRIGHT RED BLOOD ON PILLOW HPI: 86 year old female with history of parkinsons disease, afib on coumadin, presents via EMS from home for chief complaint of not feeling well. Today her daughter found bright red blood stain on her pillow with a clot. She had some dried blood at alcon base of her right nare. She is unsure if she vomited it up. She was discharged from the hospital yesteraday with nausea medication. She took dose last night after getting home. Yesterday she ate the first meal with solid food that she has had in a long time. SHe states this morning she did not give her anything to eat. She called Dr. Jovi Cespedes with what happened this morning and he directed her to the ER. This is the patient's fourth ED visit. The first two times she was given IV fluids and antiemetics and sent home. The last visit she was placed in inpatient observation. She was seen by Dr. Cespedes and had an upper gi series which was normal. She was supposed to follow up outpatient for further work up but the daughter states she is too debiltated to leave and come back to the house. She wants all further testing to be done inpatient. No futher episoodes of vomiting today. THe patient has a history of dementia, does not contribute much to the history except to state that she does not feel well. Past History Travel History Traveled to [place] past 21 day No Medical History Any Pertinent Medical History? see below for history Neurological: Parkinson's disease, INTERMITTENT CONFUSION EENT: NONE Cardiovascular: AFIB, hyperlipidemia, COMPLETE HEART BLOCK Respiratory: NONE Gastrointestinal: GERD, CHRONIC DIARRHEA Hepatic: NONE Renal: NONE Musculoskeletal: NONE Psychiatric: bipolar disease Endocrine: diabetes Blood Disorders: NONE Cancer(s): colon/rectal cancer PERSONAL CARE SERVICE PROVIDER/Reproductive: NONE History of MRSA: No History of VRE: No History of CDIFF: No Surgical History Surgical History: appendectomy, cholecystectomy, colon resection (hemicolectomy right side 2002), PACEMAKER Psychosocial History Who do you live with Daughter Services at Home Home Health Aide What is your primary language Northern Irish Tobacco Use: Quit >30 days ago ETOH Use: denies use Family History Family History, If Any: BROTHER FH: coronary artery disease Hx Contributory? No Review of Systems Review of Systems Constitutional: Denies: fever. EENTM: Reports: no symptoms. Respiratory: Denies: short of breath. Cardiovascular: Denies: chest pain. GI: Reports: nausea, vomiting. Genitourinary: Reports: no symptoms. Musculoskeletal: Reports: no symptoms. Skin: Reports: no symptoms. Neurological/Psychological: Reports: no symptoms. Hematologic/Endocrine: Reports: polyuria. Immunologic/Allergic: Denies: splenectomy. All Other Systems: Reviewed and Negative Physical Exam Physical Exam General Appearance: well developed/nourished, alert, awake, anxious, mild distress Head: atraumatic, normal appearance Eyes: Bilateral: PERRL, EOMI. Ears, Nose, Throat, Mouth: hearing grossly normal, moist mucous membrane Neck: normal inspection, supple, normal alignment Respiratory: normal breath sounds, chest non-tender, quiet respiration Cardiovascular: regular rate/rhythm Peripheral Pulses: 2+ radial (R), 2+ radial (L) Gastrointestinal: normal bowel sounds, soft, non-tender Extremities: normal range of motion Neurologic/Psych: awake, alert, normal gait Skin: intact, normal color, warm/dry Core Measures ACS in differential dx? No Severe Sepsis Present: No Septic Shock Present: No Progress Differential Diagnosis: PUD/GERD, GASTROPARESIS, GI BLEED, GASTRITIS, ESOPHAGITIS Plan of Care: Orders Procedure Date/time Status PARTIAL THROMBOPLASTIN TIME 11/30 1544 Complete PROTHROMBIN TIME 11/30 1544 Complete TROPONIN LEVEL 11/30 1540 Complete LIPASE 11/30 1540 Complete COMPREHENSIVE METABOLIC PANEL 11/30 1540 Complete CBC WITHOUT DIFFERENTIAL 11/30 1540 Complete AMYLASE 11/30 1540 Complete EKG 11/30 1420 Active Current Medications Sig/Mckay Start time Last Medication Dose Stop Time Status Admin Ondansetron HCl 4 MG ONCE ONE 11/30 1545 CAN (Zofran) 11/30 1546 Laboratory Tests 11/30/16 1623: Anion Gap 10, Estimated GFR 60, BUN/Creatinine Ratio 12.2, Glucose 128 H, Calcium 8.7, Total Bilirubin 0.9, AST 26, ALT 37, Alkaline Phosphatase 85, Troponin I 0.01, Total Protein 6.2 L, Albumin 3.2 L, Globulin 3.0, Albumin/ Globulin Ratio 1.1, Amylase 53, Lipase 119, PT 28.2 H, INR 2.71 H, APTT 34, CBC w Diff NO MAN DIFF REQ, RBC 3.90 L, MCV 98.7, MCH 32.4 H, RDW 13.4, MPV 9.3, Gran % 59.5, Lymphocytes % 30.0, Monocytes % 8.1, Eosinophils % 2.1, Basophils % 0.3, Absolute Granulocytes 4.1, Absolute Lymphocytes 2.1, Absolute Monocytes 0.6, Absolute Eosinophils 0.1, Absolute Basophils 0, PUBS MCHC 32.8 L 11/30/16 1540: Urine Color Cancelled, Urine Clarity Cancelled, Urine pH Cancelled, Ur Specific [place] Cancelled, Urine Protein Cancelled, Urine Ketones Cancelled, Urine Nitrite Cancelled, Urine Bilirubin Cancelled, Urine Urobilinogen Cancelled, Ur Leukocyte Esterase Cancelled, Ur Microscopic Cancelled, Urine Hemoglobin Cancelled, Urine Glucose Cancelled LABS STABLE. CASE MANAGEMENT CONSULTED. D/W DR NICE 0N CALL FOR DR CESPEDES. HE STATES THAT WITH HER CURRENT PRESENTATION THERE WOULD BE NO ADDITIONAL TESTS IN HOUSE, NO NEED FOR EMERGENT EDOSCOPY. HE ADVISES CONTINUED FOLLOW UP. CASE MANAGMENT AND DR OTERO WITH PATIENT AND DAUGHTER AT BEDSIDE. DAUGHTER DOES NOT WANT PATIENT TO BE PLACED IN A NURSING FACILITY FOR SHORT TERM REHAB. NO INDICATION FOR REHOSPITALIZATION AT THIS POINT. NO EPIDSODES OF VOMITING IN THE ED AND NO FURTHER EPISODES OF BLEEDING. PATIENTS DAUGHER VERY UPSET BUT AGREES TO TAKE HER HOME. TRANSPORT TO BE ARRANGED FOR THE PATIENT TO BE TAKEN HOME. 5:54 PM D/W DR ANDRADE - WILL NOT NEED ANY PROCEDURES INPATIENT. PATIENT HAD A LONG CONVERSATION WITH CASE MANAGEMENT AND DR OTERO. DAUGHTER REFUSING FOR HER MOTHER TO GO TO A DETENTION. NO BLEEDING IN THE ED. H/H WNL. INR 2.7. PATIENT HEMODYNAMICALLY STABLE. AT THIS TIME THE PATIENT WILL BE DISCHARGED HOME WITH THE DAUGHTER. (LELO DE GUZMAN,TIMOTHY) Initial ED EKG: pacemaker rhythm Departure Departure Time of Disposition: 1849 Disposition: HOME OR SELF CARE Condition: Stable Clinical Impression Primary Impression: Nausea and vomiting Referrals: LAZARA LIVE MD (PCP/Family) Departure Forms: Customer Survey General Discharge Information
[2016-11-30 16:47] LABS: ABSOLUTE BASOPHIL COUNT 0 /CUMM (0.0-0.2); ABSOLUTE EOSINOPHIL COUNT 0.1 /CUMM (0.0-0.7); ABSOLUTE GRANULOCYTE CT 4.1 /CUMM (1.4-6.5); ABSOLUTE LYMPH COUNT 2.1 /CUMM (1.2-3.4); ABSOLUTE MONOCYTE COUNT 0.6 /CUMM (0.10-0.60); BASOPHIL % 0.3 % (0.0-2.0); EOSINOPHIL % 2.1 % (0-5); GRANULOCYTE % 59.5 % (42.2-75.2); HEMATOCRIT 38.5 % (37-47); MEAN CORPUSCULAR HGB 32.4 PG (27.0-31.0); MEAN CORPUSCULAR HGB CONC 32.8 G/DL (33.0-37.0); MEAN CORPUSCULAR VOLUME 98.7 FL (81.0-99.0); MEAN PLATELET VOLUME 9.3 FL (7.4-10.4); PLATELET COUNT 157 /CUMM (130-400); RBC DISTRIBUTION WIDTH 13.4 % (11.5-14.5); WHITE BLOOD CELL COUNT 6.9 /CUMM (4.8-10.8)
[2016-11-30 16:55] LABS: PT 28.2 SEC (9.4-12.5); PTT 34 SEC (25-37)
[2016-11-30 18:02] VITALS: BP 168/82
== END 2016-11-30 18:50 ==
LOC: ERH 14:03
PROVIDERS: Emergency Medicine
DX: R11.2 Nausea with vomiting, unspecified (principal); Z79.01 Long term (current) use of anticoagulants
CPT/HCPCS: 93005; 93010

== ENCOUNTER 2016-12-15 16:25 | Emergency (ER) | payer OTHER, MEDICARE ==
[~2016-12-15] VITALS: Ht 165.1 cm; Wt 81.6 kg
--- NOTE | 2016-12-15 17:54 | ED GI/GU/ABDOMINAL COMPLAINT ---
History of Present Illness General Chief Complaint: General Adult Stated Complaint: BIBA FOR MEDICAL EVALUATION Source: patient Exam Limitations: no limitations Allergies Coded Allergies: Opioids - Morphine Analogues (Intermediate, SEVERE NAUSEA/VOMITING 09/19/16) hydromorphone (Intermediate, SEVERE NAUSEA/VOMITING 09/19/16) morphine (Intermediate, VOMITING 09/19/16) Triage Note: JOHANNA BOBOUGUE C/O WEAKNESS EMS REPORT EPISODES OF VOMITING PATIENT REPORTS LAST VOMITED ABOUT 4 HRS AGO POOR HISTORIAN Triage Nurses Notes Reviewed? yes ? N Is pt currently ? No HPI: This patient is an 86 year old female who was brought in accompanied by her daughter for evaluation of multiple episodes of vomiting over the last day. They came in at the request of the visiting nurse. Patient is a poor historian and could only contribute that her stomach does not feel well and she has been vomiting. This patient has a history of colon cancer, remission since 2003. Patient has been seen multiple times in the last 2 months for the same complaint. She had an outpatient appointment with a talend developer, but the daughter reported that she cannot make it to those appointments because the patient is unable to get out of the house. She reported that the patient's workup is always, "normal," here, but we, "need to do something because she cannot keep vomiting and cannot havd outpatient appointments." She reported that she gave the patient 2 doses of Reglan without any relief. The patient denied any abdominal pain, but the patient's daughter reported that the visiting nurse said she had epigastric pain complaining of burning earlier today. Daughter reported coffee ground vomitus x1. The patient also reported dizziness intermittently. Denied any headaches, visual changes, shortness of breath, chest pain, diarrhea, or blood in the stool. (CORTEZ MUNGUIA,SHERIE) Vital Signs & Intake/Output Vital Signs & Intake/Output Vital Signs Date Time Temp Pulse Resp B/P B/P Pulse O2 O2 Flow FiO2 Mean Ox Delivery Rate 12/16 0716 98.8 76 18 138/82 95 Room Air 12/16 0457 98.3 70 18 132/84 95 Room Air 12/15 2227 97.8 84 20 124/82 95 Room Air 12/15 1945 97.8 78 20 132/74 95 Room Air 12/15 1635 97.5 85 20 106/53 94 Room Air ED Intake and Output 12/16 0000 05/ 1200 Intake Total 1000 Output Total Balance 1000 Intake, IV 1000 Patient 180 lb Weight Reconcile Medications Alprazolam 0.5 MG TABLET 1 TAB PO PRN ANXIETY/SLEEP (Reported) Carbidopa/Levodopa (Sinemet 25-100 MG Tablet) 25 MG-100 MG TABLET 0.5 TAB PO TID SIDE EFFECTS FROM MEDS (Reported) Cholecalciferol (Vitamin D3) (Vitamin D3) 1,000 UNIT CAPSULE 1 CAP PO BID SUPPLEMENT (Reported) Clozapine (Clozaril) 25 MG TABLET 0.5 TAB PO 0800 MENTAL HEALTH (Reported) Clozapine (Clozaril) 25 MG TABLET 1 TAB PO QPM MENTAL HEALTH (Reported) Cyclobenzaprine HCl 10 MG TABLET 1 TAB PO AD PRN BACK PAIN (Reported) Glipizide (Glipizide XL) 5 MG TAB.ER.24 1 TAB PO QAM DM (Reported) Loperamide HCl (Loperamide) 2 MG CAPSULE 1 CAP PO AD PRN DIARRHEA (Reported) Metoclopramide HCl (Reglan) 10 MG TABLET 1 TAB PO TID PRN severe nausea and vomiting 30 minutes before meals and bedtime. Please take it only if needed. Please note that this medication causes tardive dyskinesia. If you note any symptoms, please seek medical attention immediately. Multivitamin (Multiple Vitamins) 1 EACH TABLET 1 TAB PO DAILY SUPPLEMENT ( Reported) Nitrofurantoin Monohyd/M-Cryst (Macrobid 100 MG Capsule) 100 MG CAPSULE 1 CAP PO BID uti with food Ondansetron (Zofran Odt) 4 MG TAB.RAPDIS 1 TAB SL AD PRN NAUSEA (Reported) Prochlorperazine Maleate (Compazine) 10 MG TABLET 1 TAB PO Q6 PRN NAUSEA ( Reported) Pyridoxine HCl (Vitamin B-6) 100 MG TABLET 1 TAB PO TID SUPPLEMENT (Reported) Simvastatin (Zocor*) 20 MG TABLET 1 TAB PO DAILY CHOLESTEROL (Reported) Warfarin Sodium (Coumadin) 4 MG TABLET 1 TAB PO AD BLOOD THINNER (Reported) Dose coumadin to keep the INR between 2-3. Please discuss with your PCP, for further instructions. (AVI DE GUZMAN,ARIA) Past History Travel History Traveled to [place] past 21 day No Medical History Any Pertinent Medical History? see below for history Neurological: Parkinson's disease, INTERMITTENT CONFUSION EENT: NONE Cardiovascular: AFIB, hyperlipidemia, COMPLETE HEART BLOCK Respiratory: NONE Gastrointestinal: GERD, CHRONIC DIARRHEA Hepatic: NONE Renal: NONE Musculoskeletal: NONE Psychiatric: bipolar disease Endocrine: diabetes Blood Disorders: NONE Cancer(s): colon/rectal cancer DOCTOR OF CHIROPRACTIC/Reproductive: NONE History of MRSA: No History of VRE: No History of CDIFF: No Surgical History Surgical History: appendectomy, cholecystectomy, colon resection (hemicolectomy right side 2002), PACEMAKER Psychosocial History Who do you live with Daughter Services at Home Home Health Aide What is your primary language Khmer Tobacco Use: Never used Family History Family History, If Any: BROTHER FH: coronary artery disease Hx Contributory? No (SHERIE TORO PA-C) Review of Systems Review of Systems Constitutional: Reports: no symptoms. EENTM: Reports: no symptoms. Respiratory: Reports: no symptoms. Cardiovascular: Reports: no symptoms. GI: Reports: see HPI. Genitourinary: Reports: no symptoms. Musculoskeletal: Reports: no symptoms. Skin: Reports: no symptoms. Neurological/Psychological: Reports: no symptoms. Hematologic/Endocrine: Reports: see HPI. All Other Systems: Reviewed and Negative (SHERIE TORO PA-C) Physical Exam Physical Exam Gastrointestinal: normal bowel sounds, soft, non-tender, no organomegaly, no reboudn or guarding. negative shearer's sign. no masses or hernias appreciated Comments: General: well-developed, well-nourished person in no acute distress HEENT: Head normocephalic, PERRLA bilaterally, nose atraumatic Neck: No lymphadenopathy Back: Normal inspection Cardiovascular: RRR with no murmurs, rubs, or gallops. NO JVD or carotid bruits Respiratory: No respiratory distress. Speaking in full sentences. Lungs CTA bilaterally with no W/R/R Neuro: A&Ox3. Cranial nerves grossly intact Psych: Normal mood and affect Core Measures ACS in differential dx? Yes Severe Sepsis Present: No Septic Shock Present: No (SHERIE TORO PA-C) Progress Differential Diagnosis: AAA, AMI, appendicitis, biliary colic, bowel obstruction , colon cancer, cholecystitis, diverticulitis, esophageal varices, gastritis, hepatitis, hernia, ischemic bowel, inflamm bowel dis, kidney stone, pancreatitis , PID/cervicitis, PUD/GERD, perforated viscous, UTI/pyelo Diagnostic Imaging: Viewed by Me: Radiology Read, CT Scan. Discussed w/RAD: Radiology Read, CT Scan. Radiology Impression: PATIENT: GEORGE NAJERA PRESENT AGE: 86 PATIENT ACCOUNT NO: [id number] : 31 LOCATION: [facility] ORDERING PHYSICIAN: SHERIE TORO PA-C SERVICE DATE: 12/15/16 EXAM TYPE: CAT - CT ABD & PELVIS W IV CONTRAST EXAMINATION: CT ABDOMEN AND PELVIS WITH CONTRAST CLINICAL INFORMATION: Vomiting and nausea. COMPARISON: CT abdomen and pelvis with contrast 11/15/2016. TECHNIQUE: Multidetector volumetric imaging was performed of the abdomen and pelvis before and after the IV administration of 95 mL of Optiray 320 intravenous contrast. Sagittal and coronal reformatted images were obtained on the technologist's workstation. DLP: 450 mGy-cm FINDINGS : LUNG BASES: No pleural or pericardial effusions. Scattered coronary artery calcifications. LIVER, GALLBLADDER, AND BILIARY TREE: The liver is normal in size and attenuation. Redemonstrated is an ill-defined hypoattenuating lesion within the anterior liver measuring 6 mm (series 2, image 21), not significantly changed relative to the prior exam. No suspicious or contour deforming liver lesions are identified. The gallbladder is surgically absent. There is no intrahepatic biliary ductal dilatation. There is stable prominence of the common bile duct, which is visualized measuring up to 1.3 cm in diameter. There are no visible radiopaque intraductal stones. PANCREAS: Generalized pancreatic atrophy. No peripancreatic inflammatory changes or fluid collections. SPLEEN: A stable 1.3 x 1.4 cm hypoattenuating lesion is identified within the spleen. ADRENAL GLANDS: Unremarkable. KIDNEYS AND URETERS: Evaluation of the bilateral kidneys and renal collecting systems is again notable for bilateral renal cortical atrophy and renal cortical thinning. No renal or ureteral stones are identified and there is no hydroureteronephrosis of either kidney or renal collecting system. BLADDER: The urinary bladder is moderately distended. There is a small focus of air within the bladder lumen. This may be related to recent catheterization. GASTROINTESTINAL TRACT: Evaluation of the gastrointestinal system is again notable for postsurgical changes related to prior partial colectomy, including excision of the right hemicolon as well as the transverse colon, to the level of the splenic flexure. The ileal colonic anastomosis appears to be grossly patent. Abdominal and pelvic bowel loops are normal in caliber, without findings indicative of small bowel obstruction or ileus. No organizing intra-abdominal or pelvic fluid collections and no free intraperitoneal air. ABDOMINAL WALL: No significant hernia is appreciated. LYMPH NODES: No significant abdominal or pelvic adenopathy. VASCULAR: Scattered atherosclerosis of the abdominal aorta and its branching vessels, without aneurysmal dilatation. PELVIC VISCERA: Coarse calcifications within the uterus, likely corresponding to degenerative uterine fibroids. OSSEOUS STRUCTURES: No acute osseous abnormality. Demineralization of the visualized bones. Moderate degenerative changes of the lumbar spine at L3-L4. IMPRESSION: No acute findings within the abdomen or pelvis to explain patient symptomatology. Stable postsurgical changes related to prior partial colectomy and ileocolonic anastomosis. The ileocolonic anastomosis appears to be grossly patent. Abdominal and pelvic bowel loops are normal in caliber, without findings indicative of small bowel obstruction or ileus. DICTATED BY: KHADAR SMITH MD DATE/TIME DICTATED:12/15/162014 POWDER NIPPER:PARK DATE/TIME TRANSCRIBED:2014 CONFIDENTIAL, DO NOT COPY WITHOUT APPROPRIATE AUTHORIZATION. < Electronically signed in Other Vendor System> SIGNED BY: KHADAR SMITH MD 12/15/162029 CXR Impression: PATIENT: GEORGE NAJERA PRESENT AGE: 86 PATIENT ACCOUNT NO: [id number] : 31 LOCATION: [facility] ORDERING PHYSICIAN: SHERIE TORO PA-C SERVICE DATE: 12/15/16 EXAM TYPE: RAD - XRY-PORTABLE CHEST XRAY EXAMINATION: XR CHEST PORTABLE CLINICAL INFORMATION: Chest pain. COMPARISON: Multiple priors, most recent chest radiograph dated and CT abdomen and pelvis done earlier the same day. TECHNIQUE: Portable frontal view of the chest was obtained. FINDINGS: Unchanged elevation of the right hemidiaphragm. Atelectasis within the right lung base. No pleural effusion or pneumothorax. Stable cardiomediastinal silhouette. No acute osseous abnormality. IMPRESSION: Unchanged elevation of the right hemidiaphragm with right lung base atelectasis. No significant interval change since the prior examination. DICTATED BY: DELVIS RODRIGEZ MD DATE/TIME DICTATED:12/15/162031 POWDER NIPPER:PARK DATE/TIME TRANSCRIBED:12/15/162031 CONFIDENTIAL, DO NOT COPY WITHOUT APPROPRIATE AUTHORIZATION. <Electronically signed in Other Vendor System> SIGNED BY: DELVIS RODRIGEZ MD 12/15/162100 Initial ED EKG: normal axis, normal intervals, no ST T wave changes, atrial paced rhythm, 88 bpm Repeat EKG: unchanged Hand-Off Endorsed To: ARIA CÁRDENAS MD Endorsed Time: 010 Pending: other Comments: 12/15/2016 7:30:11 PM: I was at the patient's bedside for re-evaluation. Reported some relief with Phenergan. Feeling "restless." Reported burning chest pain. GI cocktail ordered. Will trend troponin levels; first was 0.09 although patient has a history of elevated troponins. Will repeat EKG at time of repeat troponin. Patient's daughter reported, "my brother is on dialysis and I cannot stay. I will not be able to pick her up after I leave because I will have to stay with my brother." CT scan of abdomen and pelvis ordered. 12/15/2016 10:54:11 PM: DISCUSSED PATIENT WITH DR CÁRDENAS. PATIENT WILL REMAIN IN THE ED OVERNIGHT FOR MONITORING UNTIL DAUGHTER IS ABLE TO COME GET THE PATIENT IN THE MORNING. (CORTEZ MUNGUIA,SHERIE) Plan of Care: Orders Procedure Date/time Status TROPONIN LEVEL 12/15 2154 Complete EKG 12/15 215 Active LACTIC ACID 12/15 202 Complete URINALYSIS 12/15 1724 Complete TROPONIN LEVEL 12/15 1724 Complete LIPASE 12/15 1724 Complete LACTIC ACID 12/15 1724 Complete DIRECT BILIRUBIN 12/15 1724 Complete COMPREHENSIVE METABOLIC PANEL 12/15 172 Complete CBC WITHOUT DIFFERENTIAL 12/15 172 Complete AMYLASE 12/15 1724 Complete EKG 12/15 1724 Active Laboratory Tests 12/16/16 0400: Urine Color YEL, Urine Clarity HAZY H, Urine pH 6.5, Ur Specific [place] <= 1.005, Urine Protein 100 H, Urine Ketones NEG, Urine Nitrite NEG, Urine Bilirubin NEG, Urine Urobilinogen 0.2, Ur Leukocyte Esterase TRACE H, Ur Microscopic SEDIMENT EXAMINED, Urine RBC 25-50 H, Urine WBC 50-75 H, Urine Bacteria MANY H, Urine Hemoglobin LARGE H, Urine Glucose NEG 12/15/16 2145: Troponin I 0.09 12/15/16 2145: Lactic Acid 2.1 12/15/16 1754: Anion Gap 12, Estimated GFR 60, BUN/Creatinine Ratio 16.7, Glucose 242 H, Lactic Acid 1.8, Calcium 9.3, Total Bilirubin 0.8, Direct Bilirubin 0.3, AST 30, ALT 41, Alkaline Phosphatase 89, Troponin I 0.09, Total Protein 6.6, Albumin 3.6 , Globulin 3.0, Albumin/Globulin Ratio 1.2, Amylase 54, Lipase 66, CBC w Diff NO MAN DIFF REQ, RBC 4.17 L, MCV 97.6, MCH 32.8 H, RDW 13.6, MPV 9.6, Gran % 83.0 H, Lymphocytes % 11.1 L, Monocytes % 5.8, Eosinophils % 0, Basophils % 0.1, Absolute Granulocytes 7.9 H, Absolute Lymphocytes 1.1 L, Absolute Monocytes 0.6, Absolute Eosinophils 0, Absolute Basophils 0, PUBS MCHC 33.6 Departure Departure Disposition: HOME OR SELF CARE Condition: Stable Referrals: MARIA T DE GUZMAN,LAZARA Anderson (PCP/Family) Additional Instructions: PLEASE FOLLOW-UP WITH THE LAN ADMINISTRATOR PREVIOUSLY DIRECTED. FOLLOW-UP WITH YOUR PCP. RETURN FOR ANY WORSENING SYMPTOMS OR CONCERNS. Departure Forms: Customer Survey General Discharge Information (CORTEZ MUNGUIA,SHERIE) Departure Clinical Impression Primary Impression: Vomiting Qualifiers: Vomiting type: unspecified Vomiting Intractability: unspecified Nausea presence: with nausea Qualified Code: R11.2 - Nausea with vomiting, unspecified Secondary Impressions: Urinary tract infection Qualifiers: Urinary tract infection type: site unspecified Hematuria presence: with hematuria Qualified Codes: N39.0 - Urinary tract infection, site not specified; R31.9 - Hematuria, unspecified Prescriptions: Current Visit Scripts Nitrofurantoin Monohyd/M-Cryst (Macrobid 100 MG Capsule) 1 CAP PO BID #14 CAP with food PA/PUBLIC RELATIONS ACCOUNT SUPERVISOR Co-Sign Statement Statement: ED Attending supervision documentation- x I saw and evaluated the patient. I have also reviewed all the pertinent lab results and diagnostic results. I agree with the findings and the plan of care as documented in the PA's/PUBLIC RELATIONS ACCOUNT SUPERVISOR's documentation. [] I have reviewed the ED Record and agree with the PA's/PUBLIC RELATIONS ACCOUNT SUPERVISOR's documentation. [] Additions or exceptions (if any) to the PAs/PUBLIC RELATIONS ACCOUNT SUPERVISOR's note and plan are summarized below: [] (AVI DE GUZMAN,ARIA) as documented in the PA's/PUBLIC RELATIONS ACCOUNT SUPERVISOR's documentation. [] I have reviewed the ED Record and agree with the PA's/PUBLIC RELATIONS ACCOUNT SUPERVISOR's documentation. [] Additions or exceptions (if any) to the PAs/PUBLIC RELATIONS ACCOUNT SUPERVISOR's note and plan are summarized below: [] (AVI DE GUZMAN,ARIA)
[2016-12-15 18:22] LABS: ABSOLUTE BASOPHIL COUNT 0 /CUMM (0.0-0.2); ABSOLUTE EOSINOPHIL COUNT 0 /CUMM (0.0-0.7); ABSOLUTE GRANULOCYTE CT 7.9 /CUMM (1.4-6.5); ABSOLUTE LYMPH COUNT 1.1 /CUMM (1.2-3.4); ABSOLUTE MONOCYTE COUNT 0.6 /CUMM (0.10-0.60); BASOPHIL % 0.1 % (0.0-2.0); EOSINOPHIL % 0 % (0-5); HEMATOCRIT 40.7 % (37-47); MEAN CORPUSCULAR HGB 32.8 PG (27.0-31.0); MEAN CORPUSCULAR HGB CONC 33.6 G/DL (33.0-37.0); MEAN CORPUSCULAR VOLUME 97.6 FL (81.0-99.0); MEAN PLATELET VOLUME 9.6 FL (7.4-10.4); PLATELET COUNT 174 /CUMM (130-400); RBC DISTRIBUTION WIDTH 13.6 % (11.5-14.5); RED BLOOD CELL CT 4.17 /CUMM (4.20-5.40); WHITE BLOOD CELL COUNT 9.5 /CUMM (4.8-10.8)
--- NOTE | 2016-12-15 20:30 | CT SCAN REPORT ---
EXAMINATION: CT ABDOMEN AND PELVIS WITH CONTRAST CLINICAL INFORMATION: Vomiting and nausea. COMPARISON: CT abdomen and pelvis with contrast 11/15/2016. TECHNIQUE: Multidetector volumetric imaging was performed of the abdomen and pelvis before and after the IV administration of 95 mL of Optiray 320 intravenous contrast. Sagittal and coronal reformatted images were obtained on the technologist's workstation. DLP: 450 mGy-cm FINDINGS: LUNG BASES: No pleural or pericardial effusions. Scattered coronary artery calcifications. LIVER, GALLBLADDER, AND BILIARY TREE: The liver is normal in size and attenuation. Redemonstrated is an ill-defined hypoattenuating lesion within the anterior liver measuring 6 mm (series 2, image 21), not significantly changed relative to the prior exam. No suspicious or contour deforming liver lesions are identified. The gallbladder is surgically absent. There is no intrahepatic biliary ductal dilatation. There is stable prominence of the common bile duct, which is visualized measuring up to 1.3 cm in diameter. There are no visible radiopaque intraductal stones. PANCREAS: Generalized pancreatic atrophy. No peripancreatic inflammatory changes or fluid collections. SPLEEN: A stable 1.3 x 1.4 cm hypoattenuating lesion is identified within the spleen. ADRENAL GLANDS: Unremarkable. KIDNEYS AND URETERS: Evaluation of the bilateral kidneys and renal collecting systems is again notable for bilateral renal cortical atrophy and renal cortical thinning. No renal or ureteral stones are identified and there is no hydroureteronephrosis of either kidney or renal collecting system. BLADDER: The urinary bladder is moderately distended. There is a small focus of air within the bladder lumen. This may be related to recent catheterization. GASTROINTESTINAL TRACT: Evaluation of the gastrointestinal system is again notable for postsurgical changes related to prior partial colectomy, including excision of the right hemicolon as well as the transverse colon, to the level of the splenic flexure. The ileal colonic anastomosis appears to be grossly patent. Abdominal and pelvic bowel loops are normal in caliber, without findings indicative of small bowel obstruction or ileus. No organizing intra-abdominal or pelvic fluid collections and no free intraperitoneal air. ABDOMINAL WALL: No significant hernia is appreciated. LYMPH NODES: No significant abdominal or pelvic adenopathy. VASCULAR: Scattered atherosclerosis of the abdominal aorta and its branching vessels, without aneurysmal dilatation. PELVIC VISCERA: Coarse calcifications within the uterus, likely corresponding to degenerative uterine fibroids. OSSEOUS STRUCTURES: No acute osseous abnormality. Demineralization of the visualized bones. Moderate degenerative changes of the lumbar spine at L3-L4. IMPRESSION: No acute findings within the abdomen or pelvis to explain patient symptomatology. Stable postsurgical changes related to prior partial colectomy and ileocolonic anastomosis. The ileocolonic anastomosis appears to be grossly patent. Abdominal and pelvic bowel loops are normal in caliber, without findings indicative of small bowel obstruction or ileus.
--- NOTE | 2016-12-15 21:01 | RADIOLOGY REPORT ---
EXAMINATION: XR CHEST PORTABLE CLINICAL INFORMATION: Chest pain. COMPARISON: Multiple priors, most recent chest radiograph dated 01/30/[address] abdomen and pelvis done earlier the same day. TECHNIQUE: Portable frontal view of the chest was obtained. FINDINGS: Unchanged elevation of the right hemidiaphragm. Atelectasis within the right lung base. No pleural effusion or pneumothorax. Stable cardiomediastinal silhouette. No acute osseous abnormality. IMPRESSION: Unchanged elevation of the right hemidiaphragm with right lung base atelectasis. No significant interval change since the prior examination.
[2016-12-16] MEDS ORDERED: MACROBID 100 M100 MG PO (05:26)
[2016-12-16 07:16] VITALS: BP 138/82
== END 2016-12-16 07:17 ==
LOC: ERH 16:25
PROVIDERS: Physician Assistant
DX: N39.0 Urinary tract infection, site not specified (principal); R11.0 Nausea; I48.91 Unspecified atrial fibrillation; E11.9 Type 2 diabetes mellitus without complications
CPT/HCPCS: 74177; 81001; 93005; 93010; 96374; 96375; J0696; J2765

== ENCOUNTER 2016-12-16 11:23 | Inpatient (IN) | payer OTHER, MEDICARE ==
[~2016-12-16] VITALS: Ht 162.6 cm; Wt 85.7 kg
[~2016-12-16 11:23] MED LIST changes: +MACROBID 100 M100 MG PO
--- NOTE | 2016-12-16 11:45 | ED GI/GU/ABDOMINAL COMPLAINT ---
History of Present Illness General Chief Complaint: General Adult Stated Complaint: BIBA, GI BLEED, SEEN HERE YESTERDAY FOR SAME Source: patient, family Exam Limitations: no limitations Vital Signs & Intake/Output Vital Signs & Intake/Output Vital Signs Date Time Temp Pulse Resp B/P B/P Pulse O2 O2 Flow FiO2 Mean Ox Delivery Rate 12/16 1352 97.5 73 18 124/64 97 Nasal 1.0L Cannula 12/16 1137 18 96 Nasal 2.0L Cannula 12/16 1134 Room Air 12/16 1127 98.5 86 18 126/67 91 Room Air Allergies Coded Allergies: Opioids - Morphine Analogues (Intermediate, SEVERE NAUSEA/VOMITING 09/19/16) hydromorphone (Intermediate, SEVERE NAUSEA/VOMITING 09/19/16) morphine (Intermediate, VOMITING 09/19/16) Reconcile Medications Alprazolam 0.5 MG TABLET 1 TAB PO PRN ANXIETY/SLEEP (Reported) Carbidopa/Levodopa (Sinemet 25-100 MG Tablet) 25 MG-100 MG TABLET 0.5 TAB PO TID SIDE EFFECTS FROM MEDS (Reported) Cholecalciferol (Vitamin D3) (Vitamin D3) 1,000 UNIT CAPSULE 1 CAP PO BID SUPPLEMENT (Reported) Clozapine (Clozaril) 25 MG TABLET 0.5 TAB PO 0800 MENTAL HEALTH (Reported) Clozapine (Clozaril) 25 MG TABLET 1 TAB PO QPM MENTAL HEALTH (Reported) Cyclobenzaprine HCl 10 MG TABLET 1 TAB PO AD PRN BACK PAIN (Reported) Glipizide (Glipizide XL) 5 MG TAB.ER.24 1 TAB PO QAM DM (Reported) Loperamide HCl (Loperamide) 2 MG CAPSULE 1 CAP PO AD PRN DIARRHEA (Reported) Metoclopramide HCl (Reglan) 10 MG TABLET 1 TAB PO TID PRN severe nausea and vomiting 30 minutes before meals and bedtime. Please take it only if needed. Please note that this medication causes tardive dyskinesia. If you note any symptoms, please seek medical attention immediately. Multivitamin (Multiple Vitamins) 1 EACH TABLET 1 TAB PO DAILY SUPPLEMENT ( Reported) Ondansetron (Zofran Odt) 4 MG TAB.RAPDIS 1 TAB SL AD PRN NAUSEA (Reported) Prochlorperazine Maleate (Compazine) 10 MG TABLET 1 TAB PO Q6 PRN NAUSEA ( Reported) Pyridoxine HCl (Vitamin B-6) 100 MG TABLET 1 TAB PO TID SUPPLEMENT (Reported) Simvastatin (Zocor*) 20 MG TABLET 1 TAB PO DAILY CHOLESTEROL (Reported) Warfarin Sodium (Coumadin) 4 MG TABLET 1 TAB PO AD BLOOD THINNER (Reported) Dose coumadin to keep the INR between 2-3. Please discuss with your PCP, for further instructions. Triage Note: PT TO ROOM12 BIBA FROM HOME FOR VOMITING COFFEE GROUNDSx1.PT WAS AT [facility] LAST NIGHT FOR SAME AND WAS DC TO HOME THIS MONRING. PT ARRIVED AAOx2, C/O GENERAL WEAKNESS, DENIES ANY PAIN, AFEBRILE, VSS. Triage Nurses Notes Reviewed? yes ? N Is pt currently ? No HPI: Patient presents with intractable vomiting. Patient also states that periodically she has coffee-ground emesis. Patient has been seen in the emergency department multiple times for the same complaint. Patient does not see gastroenterology until January 19. Daughter is very concerned because she is unable to get her down the stairs so even if the appointment was earlier she would not be able to bring her there. Patient was seen in the emergency department last night for same thing. Patient spoke to her primary care physician today who sent her to the emergency room for admission. On prior visits the patient has been offered to go to short-term rehabilitation for physical therapy however the patient and the daughter have refused. Past History Travel History Traveled to [place] past 21 day No Medical History Any Pertinent Medical History? see below for history Neurological: Parkinson's disease, INTERMITTENT CONFUSION EENT: NONE Cardiovascular: AFIB, hyperlipidemia, COMPLETE HEART BLOCK Respiratory: NONE Gastrointestinal: GERD, CHRONIC DIARRHEA Hepatic: NONE Renal: NONE Musculoskeletal: NONE Psychiatric: bipolar disease Endocrine: diabetes Blood Disorders: NONE Cancer(s): colon/rectal cancer I&C TECH/Reproductive: NONE History of MRSA: No History of VRE: No History of CDIFF: No Surgical History Surgical History: appendectomy, cholecystectomy, colon resection (hemicolectomy right side 2002), PACEMAKER Psychosocial History Who do you live with Daughter Services at Home Home Health Aide What is your primary language [place] Tobacco Use: Never used ETOH Use: denies use Illicit Drug Use: denies illicit drug use Family History Family History, If Any: BROTHER FH: coronary artery disease Hx Contributory? No Review of Systems Review of Systems Constitutional: Reports: no symptoms. EENTM: Reports: no symptoms. Respiratory: Reports: no symptoms. Cardiovascular: Reports: no symptoms. GI: Reports: see HPI, nausea, vomiting. Genitourinary: Reports: no symptoms. Musculoskeletal: Reports: no symptoms. Skin: Reports: no symptoms. Neurological/Psychological: Reports: no symptoms. Hematologic/Endocrine: Reports: no symptoms. Immunologic/Allergic: Reports: no symptoms. All Other Systems: Reviewed and Negative Physical Exam Physical Exam General Appearance: well developed/nourished, alert, awake, anxious, moderate distress Head: atraumatic, normal appearance Eyes: Bilateral: PERRL, EOMI, other (ANICTERIC). Ears, Nose, Throat, Mouth: hearing grossly normal, DRY MUCOSA Neck: normal inspection, supple, full range of motion Respiratory: normal breath sounds, chest non-tender, no respiratory distress, lungs clear Cardiovascular: regular rate/rhythm, normal peripheral pulses Gastrointestinal: normal bowel sounds, soft, non-tender, no organomegaly Back: normal inspection, normal range of motion Extremities: normal range of motion Neurologic/Psych: no motor/sensory deficits, awake, alert, oriented x 3, normal mood/affect Core Measures ACS in differential dx? No Severe Sepsis Present: No Septic Shock Present: No Progress Differential Diagnosis: bowel obstruction, diverticulitis, gastritis, hepatitis, ischemic bowel, inflamm bowel dis, pancreatitis Plan of Care: Orders Procedure Date/time Status Patient Data 12/16 1525 Active Admit to inpatient 12/16 1429 Active PARTIAL THROMBOPLASTIN TIME 12/16 1143 Complete PROTHROMBIN TIME 12/16 1143 Complete COMPREHENSIVE METABOLIC PANEL 12/16 1143 Complete CBC WITHOUT DIFFERENTIAL 12/16 1143 Complete Laboratory Tests 12/16/16 1154: Anion Gap 13, Estimated GFR 60, BUN/Creatinine Ratio 20.0, Glucose 172 H, Calcium 9.0, Total Bilirubin 0.7, AST 26, ALT 35, Alkaline Phosphatase 78, Total Protein 6.2 L, Albumin 3.3 L, Globulin 2.9, Albumin/Globulin Ratio 1.1, PT 24.5 H, INR 2.35 H, APTT 32, CBC w Diff NO MAN DIFF REQ, RBC 3.83 L, MCV 96.4 , MCH 32.9 H, RDW 13.0, MPV 9.8, Gran % 79.1 H, Lymphocytes % 14.8 L, Monocytes % 5.7, Eosinophils % 0.1, Basophils % 0.3, Absolute Granulocytes 7.7 H, Absolute Lymphocytes 1.4, Absolute Monocytes 0.6, Absolute Eosinophils 0, Absolute Basophils 0, PUBS MCHC 34.1 Initial ED EKG: none Comments: Patient has a daughter now agree to go to short-term rehabilitation. Departure Departure Disposition: STILL A PATIENT Condition: Guarded Clinical Impression Primary Impression: Intractable vomiting Referrals: LAZARA LIVE MD (PCP/Family) Departure Forms: Customer Survey General Discharge Information Admission Note Spoke With: ZENIA MESA MD Documentation of Exam: Documentation of any treatments & extenuating circumstances including Concerns Regarding Discharge (functional status, medication knowledge or non-compliance, living conditions, etc.) that warrant an admission rather than observation: [IV fluids, gastroenterology consultation, physical therapy consultation]
[2016-12-16 12:10] LABS: ABSOLUTE BASOPHIL COUNT 0 /CUMM (0.0-0.2); ABSOLUTE EOSINOPHIL COUNT 0 /CUMM (0.0-0.7); ABSOLUTE GRANULOCYTE CT 7.7 /CUMM (1.4-6.5); ABSOLUTE LYMPH COUNT 1.4 /CUMM (1.2-3.4); ABSOLUTE MONOCYTE COUNT 0.6 /CUMM (0.10-0.60); BASOPHIL % 0.3 % (0.0-2.0); EOSINOPHIL % 0.1 % (0-5); GRANULOCYTE % 79.1 % (42.2-75.2); HEMATOCRIT 36.9 % (37-47); MEAN CORPUSCULAR HGB 32.9 PG (27.0-31.0); MEAN CORPUSCULAR HGB CONC 34.1 G/DL (33.0-37.0); MEAN CORPUSCULAR VOLUME 96.4 FL (81.0-99.0); MEAN PLATELET VOLUME 9.8 FL (7.4-10.4); PLATELET COUNT 148 /CUMM (130-400); RED BLOOD CELL CT 3.83 /CUMM (4.20-5.40); WHITE BLOOD CELL COUNT 9.8 /CUMM (4.8-10.8)
[2016-12-16 12:17] LABS: PT 24.5 SEC (9.4-12.5); PTT 32 SEC (25-37)
--- NOTE | 2016-12-16 16:20 | History & Physical ---
TIERRA DE GUZMAN,JUVENCIO 12/16/16 1999: General Information and HPI MD Statement: I have seen and personally examined GEORGE NAJERA and documented this H&P. The patient is a 86 year old F who presented with a patient stated chief complaint of [nausea and vomiting]. Source of Information: patient, family, old records, EMS Exam Limitations: clinical condition, confusion History of Present Illness: Patient is a 86 YO F with PMH significant for GERD, Diabetes Mellitus, Parkinsonian features secondary to metoclopromide, intermittent confusion, Atrial Fibrillation (on warfarin), HLD, Complete heart block s/p pacemaker, Bipolar disease, colon/rectal cancer BIBA with her daughter with a cheif concern of recurrnet intaractable vomiting. She was recently admitted with the similar condition, extensively evaluated. All the work up was negative including for gastric outlet obstruction, gastroparesis. Today She remains very confused in the ER during the encounter today, we tried to frequently reorient her. She refers to her daughter for all the questions. she claims being sick on and off, wants to go home. We made a call to her daughter for further information. She informs that patient had these episodes for the past 2 months, came to ER 5 times with simialr concerns. She lost around 14pounds during this time. For the past 2days her PO intake significantly reduced. yesterday vomited 8 times, only once coffee ground color. No fevers, chills. Doctors - PCP Allergies/Medications Allergies: Coded Allergies: Opioids - Morphine Analogues (Intermediate, SEVERE NAUSEA/VOMITING 09/19/16) hydromorphone (Intermediate, SEVERE NAUSEA/VOMITING 09/19/16) morphine (Intermediate, VOMITING 09/19/16) Home Med list Alprazolam 0.5 MG TABLET 1 TAB PO PRN ANXIETY/SLEEP (Reported) Carbidopa/Levodopa (Sinemet 25-100 MG Tablet) 25 MG-100 MG TABLET 0.5 TAB PO TID SIDE EFFECTS FROM MEDS (Reported) Cholecalciferol (Vitamin D3) (Vitamin D3) 1,000 UNIT CAPSULE 1 CAP PO BID SUPPLEMENT (Reported) Clozapine (Clozaril) 25 MG TABLET 0.5 TAB PO 0800 MENTAL HEALTH (Reported) Clozapine (Clozaril) 25 MG TABLET 1 TAB PO QPM MENTAL HEALTH (Reported) Cyclobenzaprine HCl 10 MG TABLET 1 TAB PO AD PRN BACK PAIN (Reported) Glipizide (Glipizide XL) 5 MG TAB.ER.24 1 TAB PO QAM DM (Reported) Loperamide HCl (Loperamide) 2 MG CAPSULE 1 CAP PO AD PRN DIARRHEA (Reported) Metoclopramide HCl (Reglan) 10 MG TABLET 1 TAB PO TID PRN severe nausea and vomiting 30 minutes before meals and bedtime. Please take it only if needed. Please note that this medication causes tardive dyskinesia. If you note any symptoms, please seek medical attention immediately. Multivitamin (Multiple Vitamins) 1 EACH TABLET 1 TAB PO DAILY SUPPLEMENT ( Reported) Ondansetron (Zofran Odt) 4 MG TAB.RAPDIS 1 TAB SL AD PRN NAUSEA (Reported) Prochlorperazine Maleate (Compazine) 10 MG TABLET 1 TAB PO Q6 PRN NAUSEA ( Reported) Pyridoxine HCl (Vitamin B-6) 100 MG TABLET 1 TAB PO TID SUPPLEMENT (Reported) Simvastatin (Zocor*) 20 MG TABLET 1 TAB PO DAILY CHOLESTEROL (Reported) Warfarin Sodium (Coumadin) 4 MG TABLET 1 TAB PO AD BLOOD THINNER (Reported) Dose coumadin to keep the INR between 2-3. Please discuss with your PCP, for further instructions. 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 child Services at Home: Home Health Aide ETOH Use: denies use Illicit Drug Use: denies illicit drug use Functional Ability ADLs Independent: dressing, eating, toileting, bathing. Ambulation: walker IADLs Needs Assist: shopping, housework, finances, food prep, telephone, transportation, medication admin. Review of Systems Review of Systems Constitutional: Reports: see HPI. EENTM: Reports: see HPI. Comments ROS negative except the above. Exam & Diagnostic Data Last 24 Hrs of Vital Signs/I&O Vital Signs Date Time Temp Pulse Resp B/P B/P Pulse O2 O2 Flow FiO2 Mean Ox Delivery Rate 12/16 1547 97.5 78 18 139/81 95 12/16 1352 97.5 73 18 124/64 97 Nasal 1.0L Cannula 12/16 1137 18 96 Nasal 2.0L Cannula 12/16 1134 Room Air 12/16 1127 98.5 86 18 126/67 91 Room Air Intake & Output 12/16 1600 12/16 0800 12/16 0000 Intake Total Output Total Balance Patient 86.183 kg Weight Weight Reported by Patient Measurement Method Physical Exam General Appearance Alert, Cooperative, No Acute Distress, not oriented Skin No Rashes, No Breakdown Skin Temp/Moisture Exam: Warm/Dry HEENT Atraumatic, PERRLA, dry mucous membranes Neck Supple Cardiovascular Normal S1, Normal S2 Lungs Clear to Auscultation, Normal Air Movement Abdomen Normal Bowel Sounds, Soft, No Tenderness Neurological Normal Tone, Sensation Intact, Cranial Nerves 3-12 NL Extremities No Clubbing, No Cyanosis, No Edema Vascular Pulses Symmetrical Last 24 Hrs of Labs/[place]: Laboratory Tests 12/16/16 1154: Anion Gap 13, Estimated GFR 60, BUN/Creatinine Ratio 20.0, Glucose 172 H, Calcium 9.0, Total Bilirubin 0.7, AST 26, ALT 35, Alkaline Phosphatase 78, Total Protein 6.2 L, Albumin 3.3 L, Globulin 2.9, Albumin/Globulin Ratio 1.1, PT 24.5 H, INR 2.35 H, APTT 32, CBC w Diff NO MAN DIFF REQ, RBC 3.83 L, MCV 96.4 , MCH 32.9 H, RDW 13.0, MPV 9.8, Gran % 79.1 H, Lymphocytes % 14.8 L, Monocytes % 5.7, Eosinophils % 0.1, Basophils % 0.3, Absolute Granulocytes 7.7 H, Absolute Lymphocytes 1.4, Absolute Monocytes 0.6, Absolute Eosinophils 0, Absolute Basophils 0, PUBS MCHC 34.1 Assessment/Plan Assessment: patient is a 86 YO F with Extensive PMH - significant includes GERD, Parkinsons, Long standing diabetes presented with nausea vomiting again. She presented with similar complaints last month for which reasons remain unclear at that time. ER Course VS Afebrile, BP 126/67mmHg, HR 86, room air. Significant labs K level of 3.4 INR - 2.35 Plan Admit to general medicine floor Intractable Nausea and vomiting * Previous work up has been negative, on top of it she didnt have any episodes of vomitus after admission. * Red flag signs - weight loss of 14pounds for the past 2months * IV Zofran for nausea * appears very dry, we will start on D51/2 NS @125ml/hr (EF 50% in ) * WE will monitor to see if she had any further episodes -- IF vomited - any blood in it. * Daughter - anthony is well aware of the situation and if she did well for the next 3days, may transfer to [facility]. Chronic and stable conditions Anxiety: alprazolam 0.5mg QPM, Clozapine 12.5mgQAM and 25mgQPM daily. Parkinsons disease: Carbidopa/Levodopa 0.5 Tab TID CAD: Aspirin 81mg, Atrovastatin 10mg Diarrhea: Loperamide 2mg Q6PRN GERD: Pantopazole 40mEQ Atrial Fibrillation: warfarin Diabetes: insulin sliding scale. DVT prophylaxis: on warfarin Code Status Full Code As Ranked By This Provider Problem List: 1. Complete heart block 2. Diabetes 3. Atrial fibrillation 4. Intractable vomiting Core Measures/Miscellaneous Acute Coronary Syndrome ACS Diagnosis: No Cerebrovascular Accident CVA/TIA Diagnosis: No Congestive Heart Failure CHF Diagnosis: No Venous Thromboembolism VTE Risk Factors: Immobility, paresis No [facility] VTE prophylaxis d/t: No contraindications No VTE Pharm Prophylaxis d/t: No contraindications VTE Diagnosis: No VTE Type: NONE VTE Confirmed by (Test): NONE Severe Sepsis Severe Sepsis Present: No Septic Shock Septic Shock Present: No Miscellaneous Documentation Attending Case Discussed With: NITA RODRIGEZ M.D Primary Care Physician: LAZARA LIVE MD A Patient sees these Specialists unknown Level of Patient Care: General Medicine BIRGIT SERVIN 12/16/16 1357: Resident Review Statement Resident Statement: examined this patient, discussed with campus recruiting intern, agreed with campus recruiting intern, reviewed EMR data (avail) Other Findings: 86-year-old female with a past medical history of anxiety, Parkinson's, non- insulin-dependent diabetes mellitus, history of C. difficile, atrial fibrillation on Coumadin, hyperlipidemia, complete heart block status post post permanent pacemaker in 2013, history of colon cancer status post right hemicolectomy , history of chronic diarrhea, presented to the ER with chief complaints of intractable nausea and vomiting. The patient herself could not report much about her presenting symptom however we called her daughter Ms. Goncalves who informed us that the patient has been having on and off vomiting for the past 1 month and for the past 1 month the patient has lost 14 pounds due to inability to eat well. The vomiting is predisposing her to get dehydration and is getting very weak of which there fearing that she might fall. The daughter went on to explain that the patient has visited ER 6 times in the past 1 month. In this index event the patient has vomited 8 times since yesterday and has not eaten anything or taken any of her medications since yesterday. This is the third admission for this year with 2 previous on in September and November for diarrhea and vomiting. She was seen in the ER yesterday with the same complaint and sent home. In one of the episodes they reported that the vomitus was coffee -ground but there was no jermaine blood. She denies any fevers chills, chest pain, palpitation, abdominal pain, dizziness, lightheadedness, dysuria or change in urine frequency. On arrival in the ER the patient was afebrile 98.5 heart rate of 86 respiration of 18 blood pressure stable 126/67 and saturating 91% on room air. Physical examination: Patient is alert cooperative a little bit tangential in- her speech multiple times asking where she is and insisting that she wants to go home and there is nothing wrong with her. She expressed remorse that her daughter have been doing a lot for her and that is over burdening her daughter. HEENT: Very dry mucous membranes RS: Clear lungs bilaterally normal breath sounds Heart: RRR, Normal S1/S2 no murmurs Extremities: No edema cyanosis or clubbing Labs: Mild hypokalemia 3.40 most likely increased BUN of 18 Assessment and plan Patient presenting with recurrent episodes of intractable vomiting that has not responded adequately to multiple antiemetic medications. She has had extensive workup without any organic cause been established. Patient reported some coffee -ground emesis one time. The vomiting can be side effect of the medication she is taking all multiple neuroleptic medications or gastroparesis as a result of long-standing diabetes. Admitted patient to general medicine floor Start the patient on clear liquids and advanced as tolerated Keep the patient on Zofran 4 mg every 6 when necessary Gentle hydration with normal saline D5 at 75 mL/h with 40 MEQ of potassium added Will hold on her antidiabetic medication glipizide and keep the patient on insulin sliding scale low dose and Accu-Cheks before every meal GI consult for AM Continue the patient antiparkinsonian medications Sinemet, and anxiety alprazolam as needed and simvastatin Continue with daily INR checks and dose warfarin to maintain between 2 and 3 She is full code Will be on pain pain pathway medication NITA RODRIGEZ MD 12/16/16 2317: Attending MD Review Statement Attending Statement Attending MD Statement: examined this patient, discuss w/resident/PA/CONTRACTING SUPPORT SPECIALIST, agreed w/resident/PA/CONTRACTING SUPPORT SPECIALIST, reviewed EMR data (avail), discussed with nursing, amended to note Attending Assessment/Plan: 86yo female with hx of Bipolar disorder, afib, htn. Brought in with complaints of repeated episodes of vomiting acording to her daughter. No complaints of abdominal pain or diarrhea. Apparently this symptom is chronic and has been attributed to gastroparesis in the past. Due to the recurrent symptoms her oral intake has diminished and she has become progressingly weaker. On examination she is alert and oriented x3 although with some periods of confusion. On examination her abdomen is sft and non-tender with normal boel sounds. She has dry frank mucosa. She is aferbile and hemodynamically stable. Labs show no electrolyte abnormality. Recommendations: -Admit to the in-patient service -Gentle hydration intravenously -Clear liquid diet. -Antiemetic therapy with zofran. GI Consultation.
--- NOTE | 2016-12-16 16:33 | PN- Student ---
Subjective Subjective: History and Physical HPI:
[2016-12-16 17:14] VITALS: BP 148/90
[2016-12-16 22:25] VITALS: BP 144/74
--- NOTE | 2016-12-17 07:43 | PN- Housestaff ---
TIERRA DE GUZMAN,JUVENCIO 12/17/16 0743: Subjective Follow-up For: Intractable nausea and vomiting Subjective: I saw and examined the patient today morning She is lying in the bed. Overnight she urinated once and couldnt get back to sleep after the episode. She denies any episodes/nausea after admitting. No significant overnight events. Review of Systems Constitutional: Reports: see HPI. Comments: ROS negative except the above. Objective Last 24 Hrs of Vital Signs/I&O Vital Signs Date Time Temp Pulse Resp B/P B/P Pulse O2 O2 Flow FiO2 Mean Ox Delivery Rate 12/17 0000 94 Nasal 1.0L Cannula 12/16 2225 97.9 68 20 144/74 94 Nasal 1.0L Cannula 12/16 1736 Nasal 1.0L Cannula 12/16 1714 97.8 60 16 148/90 93 Nasal 1.0L Cannula 12/16 1547 97.5 78 18 139/81 95 12/16 1352 97.5 73 18 124/64 97 Nasal 1.0L Cannula 12/16 1137 18 96 Nasal 2.0L Cannula 12/16 1134 Room Air 12/16 1127 98.5 86 18 126/67 91 Room Air Intake & Output 12/17 0800 12/17 0000 12/16 1600 Intake Total 1740 Output Total Balance 1740 Intake, IV 1500 Intake, Oral 240 Patient 86.183 kg 86.183 kg Weight Weight Reported by Patient Reported by Patient Measurement Method Physical Exam General Appearance: Alert, Cooperative, No Acute Distress Skin: No Rashes, No Breakdown HEENT: Atraumatic, PERRLA, EOMI Neck: Supple Cardiovascular: Normal S1, Normal S2, No Murmurs Lungs: Normal Air Movement, mild bibasilar crackles present Abdomen: Normal Bowel Sounds, Soft, No Tenderness Neurological: Normal Speech, Strength at 5/5 X4 Ext, Normal Tone, not oriented Extremities: No Clubbing, No Cyanosis, No Edema Current Medications: Current Medications Sig/Mckay Start time Last Medication Dose Route Stop Time Status Admin Acetaminophen 650 MG Q6P PRN 12/16 2029 AC PO Acetaminophen 1,000 MG Q6P PRN 12/16 2029 AC IV Alprazolam 0.5 MG QPM PRN 12/16 1830 AC PO 12/23 182 Atorvastatin Calcium 10 MG 1700 12/17 1700 AC PO Carbidopa/Levodopa 0.5 TAB TID 12/160 AC 12/16 PO 2125 Clozapine 12.5 MG DAILY 12/17 1000 AC PO Clozapine 25 MG QPM 12/16 2200 AC 12/16 PO 2233 Enoxaparin Sodium 40 MG DAILY 12/17 1000 CAN SC Insulin Aspart 0 TIDAC 12/17 0800 AC SC Ondansetron HCl 4 MG Q6P PRN 12/16 1830 AC IV Potassium Chloride 40 MEQ Q13H 12/16 1715 DC 12/16 Dextrose/Sodium 1,000 ML IV 12/17 0614 2123 Chloride Sodium Chloride 1,000 ML .Q10H 12/16 1545 DC 12/16 IV 1701 Sodium Chloride 1,000 ML BOLUS ONE 12/16 1230 DC 12/16 IV 12/16 1329 1330 Warfarin Sodium 2 MG ONCE ONE 12/16 1830 DC 12/16 PO 12/16 183 2124 Last 24 Hrs of Lab/Yury Results Last 24 Hrs of Labs/Mics: Laboratory Tests 12/17/16 0640: Anion Gap 6, Estimated GFR > 60, BUN/Creatinine Ratio 17.1, PT 26.0 H, INR 2.50 H, CBC w Diff NO MAN DIFF REQ, RBC 3.26 L, MCV 98.0, MCH 32.9 H, RDW 13.3, MPV 9.9, Gran % 53.2, Lymphocytes % 34.8, Monocytes % 9.4 H, Eosinophils % 2.0, Basophils % 0.6, Absolute Granulocytes 3.6, Absolute Lymphocytes 2.4, Absolute Monocytes 0.6, Absolute Eosinophils 0.1, Absolute Basophils 0, PUBS MCHC 33.6 12/16/16 1154: Anion Gap 13, Estimated GFR 60, BUN/Creatinine Ratio 20.0, Glucose 172 H, Calcium 9.0, Total Bilirubin 0.7, AST 26, ALT 35, Alkaline Phosphatase 78, Total Protein 6.2 L, Albumin 3.3 L, Globulin 2.9, Albumin/Globulin Ratio 1.1, PT 24.5 H, INR 2.35 H, APTT 32, CBC w Diff NO MAN DIFF REQ, RBC 3.83 L, MCV 96.4 , MCH 32.9 H, RDW 13.0, MPV 9.8, Gran % 79.1 H, Lymphocytes % 14.8 L, Monocytes % 5.7, Eosinophils % 0.1, Basophils % 0.3, Absolute Granulocytes 7.7 H, Absolute Lymphocytes 1.4, Absolute Monocytes 0.6, Absolute Eosinophils 0, Absolute Basophils 0, PUBS MCHC 34.1 Lines/Diet/Fluids Lines: peripheral lines Assessment/Plan Assessment: patient is a 86 YO F with Extensive PMH - significant includes GERD, Parkinsons, Long standing diabetes presented with nausea vomiting again. She presented with similar complaints last month for which reasons remain unclear at that time. ER Course VS Afebrile, BP 126/67mmHg, HR 86, room air. Significant labs K level of 3.4 INR - 2.35 Plan Admit to general medicine floor Intractable Nausea and vomiting * Previous work up has been negative, on top of it she didnt have any episodes of vomitus after admission. * Red flag signs - weight loss of 14pounds for the past 2months * IV Zofran for nausea * Discontinued fluids. * WE will monitor to see if she had any further episodes of vomiting -- "IF vomited" - any blood in it. * started on clear liquid diet - advanced to full liquid diet. Advance as tolerated. * GI consult placed. * Daughter - anthony is well aware of the situation and if she did well for the next 3days, may transfer to [facility]. Hypokalemia * K of 3.4 at admission, repleted by adding to fluids * repeat K level of 3.7 - repelted Chronic and stable conditions Anxiety: alprazolam 0.5mg QPM, Clozapine 12.5mgQAM and 25mgQPM daily. Parkinsons disease: Carbidopa/Levodopa 0.5 Tab TID CAD: Aspirin 81mg, Atrovastatin 10mg Diarrhea: Loperamide 2mg Q6PRN GERD: Pantopazole 40mEQ Atrial Fibrillation: warfarin 2mg given - INR 2.50 today. Diabetes: insulin sliding scale. DVT prophylaxis: on warfarin Code Status Full Code Problem List: 1. Intractable vomiting 2. Nausea and vomiting Pain Ratin Pain Location: abdomen Pain Goal: Pain 4 or less Pain Plan: tylenol prn Tomorrow's Labs & Rationales: bep to monitor electrolytes PT to monitor INR SHANELLE DE GUZMAN,AMIR 12/17/16 1004: Attending MD Review Statement Attending Statement Attending MD Statement: examined this patient, discuss w/resident/PA/FIRE WARDEN, agreed w/resident/PA/FIRE WARDEN, reviewed EMR data (avail), discussed with nursing
[2016-12-17 07:47] VITALS: BP 128/68
[2016-12-17 08:51] LABS: ABSOLUTE BASOPHIL COUNT 0 /CUMM (0.0-0.2); ABSOLUTE EOSINOPHIL COUNT 0.1 /CUMM (0.0-0.7); ABSOLUTE GRANULOCYTE CT 3.6 /CUMM (1.4-6.5); ABSOLUTE LYMPH COUNT 2.4 /CUMM (1.2-3.4); ABSOLUTE MONOCYTE COUNT 0.6 /CUMM (0.10-0.60); BASOPHIL % 0.6 % (0.0-2.0); GRANULOCYTE % 53.2 % (42.2-75.2); MEAN CORPUSCULAR HGB 32.9 PG (27.0-31.0); MEAN CORPUSCULAR HGB CONC 33.6 G/DL (33.0-37.0); MEAN PLATELET VOLUME 9.9 FL (7.4-10.4); PLATELET COUNT 116 /CUMM (130-400); RBC DISTRIBUTION WIDTH 13.3 % (11.5-14.5); RED BLOOD CELL CT 3.26 /CUMM (4.20-5.40); WHITE BLOOD CELL COUNT 6.8 /CUMM (4.8-10.8)
[2016-12-17 14:21] VITALS: BP 126/70
--- NOTE | 2016-12-17 15:05 | Cons- Gastroenterology ---
General Information and HPI Consulting Request Date of Consult: 12/17/16 Requested By: NITA RODRIGEZ M.D Reason for Consult: Nausea and vomiting. Source of Information: patient, old records History of Present Illness: Patient is an 86-year-old lady well known to our service. She is presenting with recurrent episodes of nausea and vomiting. Based on information provided by daughter patient has had these episodes starting approximately 2-1/2 months ago and has had at least 5 visits to the ER for the same problem. During this time she has lost between 10 and 15 pounds in weight. The day prior to admission patient vomited at least 8 times. Patient does not complain of any additional symptoms. PMH significant for GERD, Diabetes Mellitus, Parkinsonian features secondary to metoclopromide, intermittent confusion, Atrial Fibrillation (on warfarin), HLD, Complete heart block s/p pacemaker, Bipolar disease, colon/rectal cancer BIBA with her daughter with a cheif concern of recurrnet intaractable vomiting. She was recently admitted with the similar condition, extensively evaluated. All the work up was negative including for gastric outlet obstruction, gastroparesis. Today She remains very confused in the ER during the encounter today, we tried to frequently reorient her. Since admission approximately 24 hours ago patient has had no vomiting and on direct questioning says that she is not having any nausea. Patient denies additional symptoms such as cough phlegm fever or chills abdominal pain diarrhea. Allergies/Medications Allergies: Coded Allergies: Opioids - Morphine Analogues (Intermediate, SEVERE NAUSEA/VOMITING 09/19/16) hydromorphone (Intermediate, SEVERE NAUSEA/VOMITING 09/19/16) morphine (Intermediate, VOMITING 09/19/16) Home Med List: Alprazolam 0.5 MG TABLET 1 TAB PO PRN ANXIETY/SLEEP (Reported) Carbidopa/Levodopa (Sinemet 25-100 MG Tablet) 25 MG-100 MG TABLET 0.5 TAB PO TID SIDE EFFECTS FROM MEDS (Reported) Cholecalciferol (Vitamin D3) (Vitamin D3) 1,000 UNIT CAPSULE 1 CAP PO BID SUPPLEMENT (Reported) Clozapine (Clozaril) 25 MG TABLET 0.5 TAB PO 0800 MENTAL HEALTH (Reported) Clozapine (Clozaril) 25 MG TABLET 1 TAB PO QPM MENTAL HEALTH (Reported) Cyclobenzaprine HCl 10 MG TABLET 1 TAB PO AD PRN BACK PAIN (Reported) Glipizide (Glipizide XL) 5 MG TAB.ER.24 1 TAB PO QAM DM (Reported) Loperamide HCl (Loperamide) 2 MG CAPSULE 1 CAP PO AD PRN DIARRHEA (Reported) Metoclopramide HCl (Reglan) 10 MG TABLET 1 TAB PO TID PRN severe nausea and vomiting 30 minutes before meals and bedtime. Please take it only if needed. Please note that this medication causes tardive dyskinesia. If you note any symptoms, please seek medical attention immediately. Multivitamin (Multiple Vitamins) 1 EACH TABLET 1 TAB PO DAILY SUPPLEMENT ( Reported) Ondansetron (Zofran Odt) 4 MG TAB.RAPDIS 1 TAB SL AD PRN NAUSEA (Reported) Prochlorperazine Maleate (Compazine) 10 MG TABLET 1 TAB PO Q6 PRN NAUSEA ( Reported) Pyridoxine HCl (Vitamin B-6) 100 MG TABLET 1 TAB PO TID SUPPLEMENT (Reported) Simvastatin (Zocor*) 20 MG TABLET 1 TAB PO DAILY CHOLESTEROL (Reported) Warfarin Sodium (Coumadin) 4 MG TABLET 1 TAB PO AD BLOOD THINNER (Reported) Dose coumadin to keep the INR between 2-3. Please discuss with your PCP, for further instructions. Past History Travel History Traveled to [place] past 21 day No Medical History Blood Transfusion Hx: No Neurological: Parkinson's disease, INTERMITTENT CONFUSION EENT: NONE Cardiovascular: AFIB, hyperlipidemia, COMPLETE HEART BLOCK Respiratory: NONE Gastrointestinal: GERD, CHRONIC DIARRHEA Hepatic: NONE Renal: NONE Musculoskeletal: NONE Psychiatric: bipolar disease Endocrine: diabetes Blood Disorders: NONE Cancer(s): colon/rectal cancer HYDROELECTRIC SYSTEMS TECHNICIAN/Reproductive: NONE Surgical History Surgical History: appendectomy, cholecystectomy, colon resection (hemicolectomy right side 2002), PACEMAKER Family History Relations & Conditions If Any: BROTHER FH: coronary artery disease Psychosocial History Where Do You Live? Home Who Do You Live With? child Services at Home: Home Health Aide Smoking Status: Unknown If Ever Smoked ETOH Use: denies use Illicit Drug Use: denies illicit drug use Functional Ability ADLs Independent: dressing, eating, toileting, bathing. Ambulation: walker IADLs Needs Assist: shopping, housework, finances, food prep, telephone, transportation, medication admin. Exam & Diagnostic Data Vital Signs and I&O Physical Exam General Appearance Alert, Cooperative, No Acute Distress, not oriented Skin No Rashes, No Breakdown Skin Temp/Moisture Exam: Warm/Dry HEENT Atraumatic, PERRLA, dry mucous membranes Neck Supple Cardiovascular Normal S1, Normal S2 Lungs Clear to Auscultation, Normal Air Movement Abdomen Normal Bowel Sounds, Soft, No Tenderness Neurological Normal Tone, Sensation Intact, Cranial Nerves 3-12 NL Extremities No Clubbing, No Cyanosis, No Edema Vascular Pulses Symmetrical Vital Signs Date Time Temp Pulse Resp B/P B/P Pulse O2 O2 Flow FiO2 Mean Ox Delivery Rate 12/17 1421 98.1 78 20 126/70 94 Nasal 1.0L Cannula 12/17 0747 97.7 69 20 128/68 96 Nasal 1.0L Cannula 12/17 0000 94 Nasal 1.0L Cannula 12/16 2225 97.9 68 20 144/74 94 Nasal 1.0L Cannula 12/16 1736 Nasal 1.0L Cannula 12/16 1714 97.8 60 16 148/90 93 Nasal 1.0L Cannula 12/16 1547 97.5 78 18 139/81 95 Intake & Output 12/17 1600 12/17 0400 12/16 1600 12/16 0400 12/15 1600 12/15 0400 Intake Total 720 1740 Output Total Balance 720 1740 Intake, IV 600 1500 Intake, Oral 120 240 Patient 190 lb 190 lb Weight Weight Reported by Patient Reported by Patient Measurement Method Assessment/Plan Assessment/Recommendations: patient is a 86 YO F with Extensive PMH - significant includes GERD, Parkinsons, Long standing diabetes presented with nausea vomiting again. She presented with similar complaints last month for which reasons remain unclear at that time. Patient does had a normal upper GI barium series which did not reveal any anatomical problems such as gastric outlet obstruction. After her recent extensive workup agree with symptomatic treatment with Zofran. As patient has not had any emesis or 24 hours and states that she does not have nausea would recommend starting clear liquids and then advancing diet as tolerated. Not planning any endoscopic or other interventions at present. We'll review on a daily basis. Consult Acknowledgment - Thank you for your consult request.
[2016-12-17 22:37] VITALS: BP 110/80
[2016-12-18 07:25] VITALS: BP 108/80
[2016-12-18 08:16] LABS: PT 22.4 SEC (9.4-12.5)
--- NOTE | 2016-12-18 08:59 | PN- Housestaff ---
SARAH DE GUZMAN,VANIA 12/18/16 0859: Subjective Follow-up For: Intractable nausea and vomiting Complaints: no complaints Subjective: I followed up and examined the patient today. She is resting comfortably in a recliner, not in distress, does not have any nausea/vomiting anymore postop was tolerating full liquid diet very well so far. Vitals have been stable, no overnight issues. Review of Systems Constitutional: Reports: no symptoms. Objective Last 24 Hrs of Vital Signs/I&O Vital Signs Date Time Temp Pulse Resp B/P B/P Pulse O2 O2 Flow FiO2 Mean Ox Delivery Rate 12/18 1415 98.1 75 18 130/90 95 Room Air 12/18 0940 95 Room Air 12/18 0910 18 95 Room Air 12/18 0850 98 Nasal 1.0L Cannula 12/18 0725 97.7 75 20 108/80 98 Nasal 2.0L Cannula 12/18 0000 99 Nasal 1.0L Cannula 12/17 2237 97.8 70 20 110/80 99 Intake & Output 12/18 1600 12/18 0800 12/18 0000 Intake Total 30 130 250 Output Total 200 Balance -170 130 250 Intake, IV 10 10 Intake, Oral 30 120 240 Output, Urine 200 Physical Exam General Appearance: Alert, Cooperative, No Acute Distress, obese, seemed confused during the course of conversation Other Physical Findings: Skin: No Rashes, No Breakdown HEENT: Atraumatic, PERRLA, EOMI Neck: Supple Cardiovascular: Normal S1, Normal S2, No Murmurs Lungs: Normal Air Movement, mild bibasilar crackles present Abdomen: Normal Bowel Sounds, Soft, No Tenderness Neurological: Normal Speech, grossly intact except for orientation Extremities: No Clubbing, No Cyanosis, No Edema Current Medications: Current Medications Sig/Mckay Start time Last Medication Dose Route Stop Time Status Admin Acetaminophen 650 MG Q6P PRN 12/16 2030 AC PO Acetaminophen 1,000 MG Q6P PRN 12/16 2030 AC IV Alprazolam 0.5 MG QPM PRN 12/16 1830 AC PO 12/23 1829 Atorvastatin Calcium 10 MG 1700 12/17 1700 AC 12/18 PO 1556 Carbidopa/Levodopa 0.5 TAB TID 12/16 2200 AC 12/18 PO 205 Clozapine 12.5 MG DAILY 12/17 1000 AC 05/14 PO 0913 Clozapine 25 MG QPM 12/16 2200 AC 12/18 PO 2058 Insulin Aspart 0 TIDAC 12/17 0800 AC 12/18 SC 0820 Ondansetron HCl 4 MG Q6P PRN 12/16 1830 AC IV Patient Medication 1 UNIT ONE NR 12/18 1615 DC Teaching ED 12/18 1700 Warfarin Sodium 2 MG COUMADIN 1700 ONE 12/18 1700 DC 12/18 PO 12/18 1701 1753 Last 24 Hrs of Lab/Yury Results Last 24 Hrs of Labs/Mics: Laboratory Tests 12/18/16 0625: Anion Gap 9, Estimated GFR > 60, BUN/Creatinine Ratio 13.8, PT 22.4 H, INR 2.15 H Assessment/Plan Assessment: Patient is a 86 YO F with Extensive PMH - significant includes GERD, Parkinsons, Long standing diabetes presented with nausea vomiting again. She presented with similar complaints last month for which reasons remain unclear at that time. ER Course VS Afebrile, BP 126/67mmHg, HR 86, room air. Significant labs K level of 3.9 INR - 2.15 (decreased from yesterday) Plan Continue to manage at general medicine floor Intractable Nausea and vomiting * Previous work up has been negative, and she didnt have any episodes of vomitus after admission. * Red flag signs - weight loss of 14pounds for the past 2months * IV Zofran for nausea to continue * We will monitor to see if she had any further episodes of vomiting -- "IF vomited" - any blood in it. * Patient has been tolerating full liquid diet, will advance diet and a seton visit will discharge the patient to short term rehabilitation. Need to confirm with leather case finisher if she has been ordered. Update: She does not have a bed and STR yet, will search for a bed tomorrow and discharge if she continues to be stable. * GI consult appreciated. Hypokalemia * K of 3.4 at admission, repleted by adding to fluids * repeat K level of 3.9 today Chronic and stable conditions Anxiety: alprazolam 0.5mg QPM, Clozapine 12.5mgQAM and 25mgQPM daily. Parkinsons disease: Carbidopa/Levodopa 0.5 Tab TID CAD: Aspirin 81mg, Atrovastatin 10mg Diarrhea: Loperamide 2mg Q6PRN GERD: Pantopazole 40mEQ Atrial Fibrillation: warfarin 2mg given - INR 2.50 today. Diabetes: insulin sliding scale. DVT prophylaxis: on warfarin, dosed 2mg today Code Status Full Code Problem List: 1. Intractable vomiting 2. Dehydration syndrome 3. Orthostatic hypotension Pain Ratin Pain Location: - Pain Goal: Pain 4 or less Pain Plan: prn Tomorrow's Labs & Rationales: BEP, INR to dose coumading and to replete potassium if needed SHANELLE DE GUZMAN,AMIR 12/18/16 1028: Attending MD Review Statement Attending Statement Attending MD Statement: examined this patient, discuss w/resident/PA/JUNIOR SYSTEMS ENGINEER, agreed w/resident/PA/JUNIOR SYSTEMS ENGINEER, reviewed EMR data (avail), discussed with nursing Attending Assessment/Plan: patient was seen and evaluated. Reports doing better. tolerating diet OK without nausea or vomiting. wants to go home. Appreciate GI input - no immediate intervention required. Cont symptomatic tx. Likely d/c home today. Rest of the plan as per resident's note
[2016-12-18] MEDS ORDERED: ZOFRAN ODT4 M1 SL (13:11)
--- NOTE | 2016-12-18 13:12 | Patient Discharge Instructions ---
Discharge Instructions General Discharge Information You were seen/treated for: Ulcerative esophagitis You had these procedures: Endoscopy Special Instructions: FOLLOW UP WITH YOUR PCP WITHIN SEVEN DAYS OF DISCHARGE. Please take esomiprazole regularly. Please follow up with as an outpatient. DO NOT TAKE METOCLOPROMIDE. Diet Continue normal diet: Yes Activity Full Activity/No Limits: No Activity Self Limited: Yes Acute Coronary Syndrome Inclusion Criteria At DC or during hospital stay patient has or had the following: ACS DIAGNOSIS No Discharge Core Measures Meds if any: Prescribed or Continued at Discharge Meds if any: NOT Prescribed or Continued at Discharge Congestive Heart Failure Inclusion Criteria At DC or during hospital stay patient has or had the following: CHF DIAGNOSIS No Discharge Core Measures Meds if any: Prescribed or Continued at Discharge Meds if any: NOT Prescribed or Continued at Discharge Cerebrovascular accident Inclusion Criteria At DC or during hospital stay patient has or had the following: CVA/TIA Diagnosis No Discharge Core Measures Meds if any: Prescribed or Continued at Discharge Meds if any: NOT Prescribed or Continued at Discharge Venous thromboembolism Inclusion Criteria VTE Diagnosis No VTE Type NONE VTE Confirmed by (Test) NONE Discharge Core Measures - Per Current guidelines, there needs to be overlap - treatment for the first 5 days of Warfarin therapy. - If discharged on Warfarin prior to 5 days of - overlap therapy, the patient will need to be - assessed for post discharge needs including - *Post discharge parental anticoagulation - *Warfarin and/or parental anticoagulation education - *Follow up date to check INR post discharge At least 5 days overlap therapy as Inpatient No Meds if any: Prescribed or Continued at Discharge Note: Overlap Therapy is Warfarin and Anticoagulant Meds if any: NOT Prescribed or Continued at Discharge
--- NOTE | 2016-12-18 13:35 | PN- Gastroenterology ---
Assessment/Plan Assessment/Recommendations: patient is a 86 YO F with Extensive PMH - significant includes GERD, Parkinsons, Long standing diabetes presented with nausea vomiting again. She presented with similar complaints last month for which reasons remain unclear at that time. Since admission she has had no vomiting and claims that she has no nausea. She does however have a loss of appetite. Patient does had a normal upper GI barium series which did not reveal any anatomical problems such as gastric outlet obstruction. After her recent extensive workup agree with symptomatic treatment with Zofran. As patient has not had any emesis since admission and states that she does not have nausea would recommend starting clear liquids and then advancing diet as tolerated. Not planning any endoscopic or other interventions at present. We'll review on a daily basis. Subjective Subjective: x Objective Vital Signs and I&Os Vital Signs Date Time Temp Pulse Resp B/P B/P Pulse O2 O2 Flow FiO2 Mean Ox Delivery Rate 12/18 0940 95 Room Air 12/18 0910 18 95 Room Air 12/18 0850 98 Nasal 1.0L Cannula 12/18 0725 97.7 75 20 108/80 98 Nasal 2.0L Cannula 12/18 0000 99 Nasal 1.0L Cannula 12/17 2237 97.8 70 20 110/80 99 12/17 1421 98.1 78 20 126/70 94 Nasal 1.0L Cannula Intake & Output 12/18 1600 12/18 0400 12/17 1600 12/17 0400 12/16 1600 12/16 0400 Intake Total 524 115 5987 1740 Output Total 200 200 Balance -70 250 1320 1740 Intake, IV 10 10 800 1500 Intake, Oral 120 240 720 240 Output, Urine 200 200 Patient 190 lb 190 lb Weight Weight Reported by Patient Reported by Patient Measurement Method Results Pertinent Lab Results: Laboratory Tests 12/18 12/17 0625 0640 Chemistry Sodium (137 - 145 mmol/L) 143 141 Potassium (3.5 - 5.1 mmol/L) 3.9 3.7 Chloride (98 - 107 mmol/L) 107 109 H Carbon Dioxide (22 - 30 mmol/L) 27 26 Anion Gap (5 - 16) 9 6 BUN (7 - 17 mg/dL) 11 12 Creatinine (0.5 - 1.0 mg/dL) 0.8 0.7 Estimated GFR (>60 ml/min) > 60 > 60 BUN/Creatinine Ratio (7 - 25 %) 13.8 17.1 Coagulation PT (9.4 - 12.5 SEC) 22.4 H 26.0 H INR (0.90 - 1.19) 2.15 H 2.50 H Hematology CBC w Diff NO MAN DIFF REQ WBC (4.8 - 10.8 /CUMM) 6.8 RBC (4.20 - 5.40 /CUMM) 3.26 L Hgb (12.0 - 16.0 G/DL) 10.7 L Hct (37 - 47 %) 32.0 L MCV (81.0 - 99.0 FL) 98.0 MCH (27.0 - 31.0 PG) 32.9 H RDW (11.5 - 14.5 %) 13.3 Plt Count (130 - 400 /CUMM) 116 L MPV (7.4 - 10.4 FL) 9.9 Gran % (42.2 - 75.2 %) 53.2 Lymphocytes % (20.5 - 51.1 %) 34.8 Monocytes % (1.7 - 9.3 %) 9.4 H Eosinophils % (0 - 5 %) 2.0 Basophils % (0.0 - 2.0 %) 0.6 Absolute Granulocytes (1.4 - 6.5 /CUMM) 3.6 Absolute Lymphocytes (1.2 - 3.4 /CUMM) 2.4 Absolute Monocytes (0.10 - 0.60 /CUMM) 0.6 Absolute Eosinophils (0.0 - 0.7 /CUMM) 0.1 Absolute Basophils (0.0 - 0.2 /CUMM) 0 PUBS MCHC (33.0 - 37.0 G/DL) 33.6 /12 1154 Chemistry Sodium (137 - 145 mmol/L) 144 Potassium (3.5 - 5.1 mmol/L) 3.4 L Chloride (98 - 107 mmol/L) 103 Carbon Dioxide (22 - 30 mmol/L) 27 Anion Gap (5 - 16) 13 BUN (7 - 17 mg/dL) 18 H Creatinine (0.5 - 1.0 mg/dL) 0.9 Estimated GFR (>60 ml/min) 60 BUN/Creatinine Ratio (7 - 25 %) 20.0 Glucose (65 - 99 mg/dL) 172 H Calcium (8.4 - 10.2 mg/dL) 9.0 Total Bilirubin (0.2 - 1.3 mg/dL) 0.7 AST (14 - 36 U/L) 26 ALT (9 - 52 U/L) 35 Alkaline Phosphatase (<127 U/L) 78 Total Protein (6.3 - 8.2 g/dL) 6.2 L Albumin (3.5 - 5.0 g/dL) 3.3 L Globulin (1.9 - 4.2 gm/dL) 2.9 Albumin/Globulin Ratio (1.1 - 2.2 %) 1.1 Coagulation PT (9.4 - 12.5 SEC) 24.5 H INR (0.90 - 1.19) 2.35 H APTT (25 - 37 SEC) 32 Hematology CBC w Diff NO MAN DIFF REQ WBC (4.8 - 10.8 /CUMM) 9.8 RBC (4.20 - 5.40 /CUMM) 3.83 L Hgb (12.0 - 16.0 G/DL) 12.6 Hct (37 - 47 %) 36.9 L MCV (81.0 - 99.0 FL) 96.4 MCH (27.0 - 31.0 PG) 32.9 H RDW (11.5 - 14.5 %) 13.0 Plt Count (130 - 400 /CUMM) 148 MPV (7.4 - 10.4 FL) 9.8 Gran % (42.2 - 75.2 %) 79.1 H Lymphocytes % (20.5 - 51.1 %) 14.8 L Monocytes % (1.7 - 9.3 %) 5.7 Eosinophils % (0 - 5 %) 0.1 Basophils % (0.0 - 2.0 %) 0.3 Absolute Granulocytes (1.4 - 6.5 /CUMM) 7.7 H Absolute Lymphocytes (1.2 - 3.4 /CUMM) 1.4 Absolute Monocytes (0.10 - 0.60 /CUMM) 0.6 Absolute Eosinophils (0.0 - 0.7 /CUMM) 0 Absolute Basophils (0.0 - 0.2 /CUMM) 0 PUBS MCHC (33.0 - 37.0 G/DL) 34.1
[2016-12-18 14:15] VITALS: BP 130/90
[2016-12-18 21:52] VITALS: BP 110/80
--- NOTE | 2016-12-19 07:22 | PN- Housestaff ---
TIERRA DE GUZMAN,[facility] 12/19/16 0721: Subjective Follow-up For: ALTERED MENTAL STATUS INTRACTABLE NAUSEA AND VOMITING Subjective: I saw and examined the patient today morning She is doing better, sitting comfortably on a chair. Overnight she became confused at 1pm, she was reoriented. No episodes of nausea, vomiting, diarrhea after admission. In the evening we spoke with daughter, she is requesting additional workup of nausea, diarrhea. She reports its episodic - will repeat eventually, needs proper investigation for it. Review of Systems Constitutional: Reports: see HPI. Comments: ROS negative except the above. Objective Last 24 Hrs of Vital Signs/I&O Vital Signs Date Time Temp Pulse Resp B/P B/P Pulse O2 O2 Flow FiO2 Mean Ox Delivery Rate 12/18 2152 97.9 58 20 110/80 92 12/18 1415 98.1 75 18 130/90 95 Room Air 12/18 0940 95 Room Air 12/18 0910 18 95 Room Air 12/18 0850 98 Nasal 1.0L Cannula 12/18 0725 97.7 75 20 108/80 98 Nasal 2.0L Cannula Intake & Output 12/19 0800 12/19 0000 12/18 1600 Intake Total 800 30 Output Total 200 Balance 800 -170 Intake, Oral 800 30 Output, Urine 200 Physical Exam General Appearance: Alert, Oriented X3, Cooperative Skin: No Rashes HEENT: Atraumatic, PERRLA, EOMI Neck: Supple Cardiovascular: Normal S1, Normal S2, No Murmurs Lungs: Clear to Auscultation, Normal Air Movement Abdomen: Normal Bowel Sounds, Soft, No Tenderness Neurological: Normal Tone, Sensation Intact, Cranial Nerves 3-12 NL Extremities: No Clubbing, No Cyanosis, No Edema Vascular: Normal Pulses, Pulses Symmetrical Current Medications: Current Medications Sig/Mckay Start time Last Medication Dose Route Stop Time Status Admin Acetaminophen 650 MG Q6P PRN 12/16 2030 AC PO Acetaminophen 1,000 MG Q6P PRN 12/16 2030 AC IV Alprazolam 0.5 MG QPM PRN 12/16 1830 AC PO 12/23 182 Atorvastatin Calcium 10 MG 1700 12/17 1700 AC 12/18 PO 1556 Carbidopa/Levodopa 0.5 TAB TID 12/16 2200 AC 12/18 PO 205 Clozapine 12.5 MG DAILY 12/17 1000 AC 12/18 PO 0913 Clozapine 25 MG QPM 12/16 2200 AC 12/18 PO 2058 Insulin Aspart 0 TIDAC 12/17 0800 AC 12/18 SC 0820 Ondansetron HCl 4 MG Q6P PRN 12/16 1830 AC IV Patient Medication 1 UNIT ONE NR 12/18 1615 DC Teaching ED 12/18 1700 Warfarin Sodium 2 MG COUMADIN 1700 ONE 12/18 1700 DC 12/18 PO 12/18 1701 1753 Last 24 Hrs of Lab/Yury Results Last 24 Hrs of Labs/Mics: Laboratory Tests 12/19/16 0710: Sodium Pending, Potassium Pending, Chloride Pending, Carbon Dioxide Pending, Anion Gap Pending, BUN Pending, Creatinine Pending, BUN/Creatinine Ratio Pending , PT 18.7 H, INR 1.79 H Assessment/Plan Assessment: Patient is a 86 YO F with Extensive PMH - significant includes GERD, Parkinsons, Long standing diabetes presented with nausea vomiting again. She presented with similar complaints last month for which reasons remain unclear at that time. ER Course VS Afebrile, BP 126/67mmHg, HR 86, room air. Significant labs K level of 3.9 INR - 2.15 (decreased from yesterday) Plan Continue to manage at general medicine floor Intractable Nausea and vomiting * Previous work up has been negative, and she didnt have any episodes of vomitus after admission. * Red flag signs - weight loss of 14pounds for the past 2months * IV Zofran for nausea to continue - so far not needed * We will monitor to see if she had any further episodes of vomiting -- "IF vomited" - any blood in it. * Started on regular diet yesterday. * Daughter is concerned about the negative work up - we will consult GI again to get further input about their views about patient condition. Bed is available in STR for the patient. Hypokalemia * K of 3.4 at admission, repleted by adding to fluids * repeat K level of 3.9 today Chronic and stable conditions Anxiety: alprazolam 0.5mg QPM, Clozapine 12.5mgQAM and 25mgQPM daily. Parkinsons disease: Carbidopa/Levodopa 0.5 Tab TID CAD: Aspirin 81mg, Atrovastatin 10mg Diarrhea: Loperamide 2mg Q6PRN GERD: Pantopazole 40mEQ Atrial Fibrillation: warfarin 4mg given - INR 1.79 today (subtherapeutic). Diabetes: insulin sliding scale. DVT prophylaxis: on warfarin, dosed 4mg today Code Status Full Code Problem List: 1. Intractable vomiting 2. Vomiting 3. Nausea and vomiting Pain Ratin Pain Location: n/a Pain Goal: Pain 4 or less Pain Plan: tylenol prn Tomorrow's Labs & Rationales: NONE NITA RODRIGEZ MD 12/19/16 1304: Attending MD Review Statement Attending Statement Attending MD Statement: examined this patient, discuss w/resident/PA/LEVEE SUPERINTENDENT, agreed w/resident/PA/LEVEE SUPERINTENDENT, reviewed EMR data (avail), discussed with nursing, reviewed images, amended to note Attending Assessment/Plan: Patient seen and examined. Resting comfortably. No reports of nausea vomiting since admission. Tolerating her meals. No further workup recommended by the GI service. At time of presentation to the emergency room patient's daughter was in agreement to discharging the patient to long term facility as she was unable to continue to care for her mother in her deconditioned state. Patient however is not entirely happy with this decision although she will comply with her daughters decision. She offers no new complaints this morning although may desire to speak with her daughter. Electrolytes are within normal limits. On Examination she has no acute findings. She will be discharged to long term facility once a bed becomes available. We will Gris to the patient's daughter to follow-up with the patient. nursing facility once a bed becomes available. We will Gris to the patient's daughter to follow-up with the patient.
[2016-12-19 07:32] VITALS: BP 112/80
[2016-12-19 08:19] LABS: PT 18.7 SEC (9.4-12.5)
[2016-12-19 10:43] LABS: ABSOLUTE BASOPHIL COUNT 0 /CUMM (0.0-0.2); ABSOLUTE EOSINOPHIL COUNT 0.1 /CUMM (0.0-0.7); ABSOLUTE MONOCYTE COUNT 0.7 /CUMM (0.10-0.60); BASOPHIL % 0.3 % (0.0-2.0)
[2016-12-19 11:08] LABS: ABSOLUTE GRANULOCYTE CT 5.5 /CUMM (1.4-6.5); ABSOLUTE LYMPH COUNT 1.9 /CUMM (1.2-3.4); EOSINOPHIL % 0.8 % (0-5); GRANULOCYTE % 66.9 % (42.2-75.2); MEAN CORPUSCULAR HGB CONC 33.8 G/DL (33.0-37.0); MEAN CORPUSCULAR VOLUME 97.7 FL (81.0-99.0); MEAN PLATELET VOLUME 9.9 FL (7.4-10.4); PLATELET COUNT 143 /CUMM (130-400); RED BLOOD CELL CT 3.85 /CUMM (4.20-5.40); WHITE BLOOD CELL COUNT 8.2 /CUMM (4.8-10.8)
[2016-12-19 11:15] LABS: HEMATOCRIT 37.6 % (37-47)
--- NOTE | 2016-12-19 12:00 | Discharge Summary ---
Visit Information Visit Dates Admission Date: 12/16/16 Discharge Date: 12/22/2016 Hospital Course Course Attending Physician: NITA RODRIGEZ M.D Primary Care Physician: LAZARA LIVE MD Consulting Request: Consulting Specialty: Gastroenterology Consulting Physician: Dr. Serrano Reason for Consult: Intractable vomiting Hospital Course: 86 YO F with a PMH of anxiety, Parkinson's,Type 2 DM, history of C. difficile, A.Fib on Coumadin, HDL, complete heart block s/p PPM in 2012, h/o colon cancer status post right hemicolectomy , history of chronic diarrhea, presented to the ER with chief complaints of intractable nausea and vomiting. Patient is confused and altered at baseline. ER Course VS Afebrile, BP 126/67mmHg, HR 86, room air. Significant labs K level of 3.9 INR - 2.15 (decreased from yesterday) Plan Admit to general medicine floor Ulcerative esophagitis with antritis Most of the history is obtained after calling her daughter ebony. she has been vomiting on and off for the past 2mon, lost 14pound weight. There was no episode of vomiting observed while in the hospital. Patient diet was advanced progressively without any setbacks. Patient had an upper endoscope which showed ulcerative esophagitis, hiatal hernia and antritis. She is being discharged with antinausea medication to take as needed in case she becomes nauseous post discharge. She will also need to be on proton pump inhibitors rabeprazole 20mg BID recommended by Dr. Cespedes from GI service. Discharged with esomiprazole (of note: she didnt tolerate omeprazole, pantoprazole in the past according to daughter) Hypokalemia [resolved] Patient presented with potassium level 3.4 on admission. She received potassium supplementation with successful improvement of her hypokalemia. Anxiety Patient has history of anxiety. In the course of the admission with continued her home medications Alprazolam 0.5mg QPM, Clozapine 12.5mgQAM and 25mgQPM daily. She is being discharged to continue with the same medication of the same level. Parkinsons disease Patient has history of Parkinson disease for which she takes Carbidopa/Levodopa. She was started on the medication during the course of this admission and is being discharged home to continue with the medication at the same level and frequency. Her Parkinson disease remained stable. CAD Patient has history of coronary artery disease and for this she is on Aspirin 81mg, Atrovastatin 10mg, GERD Patient has history of GERD, he was continued on his home medication Pantopazole 40mEQ. She is being discharged home on the same dose Atrial Fibrillation Patient has history of atrial fibrillation and is on warfarin at home. He presented with INR within therapeutic range of 2.5 she was maintained on Coumadin during the course of the stay. She is being discharged home to continue with Coumadin and monitoring of INR to remain within therapeutic range of 2-3. Diabetes The patient is on oral antidiabetic medication at home but during the course of the stay we held the medication and patient was started on insulin sliding scale. Sugars remained well controlled, is being discharged home to continue with oral antidiabetic medication Glipizide without any changes. DVT prophylaxis: on warfarin Code Status Full Code Complications: None Allergies: Coded Allergies: Opioids - Morphine Analogues (Intermediate, SEVERE NAUSEA/VOMITING 09/19/16) hydromorphone (Intermediate, SEVERE NAUSEA/VOMITING 09/19/16) morphine (Intermediate, VOMITING 09/19/16) Significant Procedures: Endoscopy Procedure Procedure Date: 12/21/16 Procedure Type: EGD w/biopsy Tractor Crane Operator: Eva Cespedes M.D. ASA Classification: III Indications: Nausea, vomiting Instrument: diagnostic gastroscope Meds Received: MAC (O2 via mask) Patient's Tolerance: good Complications: none Extent Reached: second part of duodenum Informed, witnessed telephone consent was obtained from the patient's daughter LEONARD Goncalves. The patient was medicated. Hurricaine pharyngeal spray was administered. Pulse oximetry, blood pressure and cardiac monitoring were performed continuously throughout the procedure. The Olympus high-definition gastroscope was inserted into the mouth and advanced to the duodenum. Retroflexion was performed within the stomach to examine the cardia. Careful examination was performed. Findings: The esophagus had normal caliber and contour. Beginning at 28 cm there were several linear erosions which extended far distally. In the distal esophagus there were multiple ulcerations covered with exudate. At the GE junction at 38 cm was a ring, and distal to this was a hiatal hernia. The stomach had normal distention, and active antral peristalsis. The cardia was normal. Mucosa and folds of the fundus body and incisura were normal. There was some bumpiness to the mucosa of the antrum. There was distal antral edema. The pyloric channel was normal. 3 antral biopsies were obtained. The duodenal bulb was normal. Mucosa and folds of the duodenal sweep were normal. Impression: * Ulcerative esophagitis * Hiatal hernia * Antritis Pertinent Lab Results: Laboratory Tests 12/19 12/19 12/18 0932 0710 0676 Chemistry Sodium (137 - 145 mmol/L) 142 143 Potassium (3.5 - 5.1 mmol/L) 3.9 3.9 Chloride (98 - 107 mmol/L) 105 107 Carbon Dioxide (22 - 30 mmol/L) 25 27 Anion Gap (5 - 16) 13 9 BUN (7 - 17 mg/dL) 14 11 Creatinine (0.5 - 1.0 mg/dL) 0.9 0.8 Estimated GFR (>60 ml/min) 60 > 60 BUN/Creatinine Ratio (7 - 25 %) 15.6 13.8 Coagulation PT (9.4 - 12.5 SEC) 18.7 H 22.4 H INR (0.90 - 1.19) 1.79 H 2.15 H Hematology CBC w Diff NO MAN DIFF REQ WBC (4.8 - 10.8 /CUMM) 8.2 RBC (4.20 - 5.40 /CUMM) 3.85 L Hgb (12.0 - 16.0 G/DL) 12.7 Hct (37 - 47 %) 37.6 MCV (81.0 - 99.0 FL) 97.7 MCH (27.0 - 31.0 PG) 33.0 H RDW (11.5 - 14.5 %) 13.0 Plt Count (130 - 400 /CUMM) 143 MPV (7.4 - 10.4 FL) 9.9 Gran % (42.2 - 75.2 %) 66.9 Lymphocytes % (20.5 - 51.1 %) 23.5 Monocytes % (1.7 - 9.3 %) 8.5 Eosinophils % (0 - 5 %) 0.8 Basophils % (0.0 - 2.0 %) 0.3 Absolute Granulocytes (1.4 - 6.5 /CUMM) 5.5 Absolute Lymphocytes (1.2 - 3.4 /CUMM) 1.9 Absolute Monocytes (0.10 - 0.60 /CUMM) 0.7 H Absolute Eosinophils (0.0 - 0.7 /CUMM) 0.1 Absolute Basophils (0.0 - 0.2 /CUMM) 0 PUBS MCHC (33.0 - 37.0 G/DL) 33.8 05/13 0640 Chemistry Sodium (137 - 145 mmol/L) 141 Potassium (3.5 - 5.1 mmol/L) 3.7 Chloride (98 - 107 mmol/L) 109 H Carbon Dioxide (22 - 30 mmol/L) 26 Anion Gap (5 - 16) 6 BUN (7 - 17 mg/dL) 12 Creatinine (0.5 - 1.0 mg/dL) 0.7 Estimated GFR (>60 ml/min) > 60 BUN/Creatinine Ratio (7 - 25 %) 17.1 Coagulation PT (9.4 - 12.5 SEC) 26.0 H INR (0.90 - 1.19) 2.50 H Hematology CBC w Diff NO MAN DIFF REQ WBC (4.8 - 10.8 /CUMM) 6.8 RBC (4.20 - 5.40 /CUMM) 3.26 L Hgb (12.0 - 16.0 G/DL) 10.7 L Hct (37 - 47 %) 32.0 L MCV (81.0 - 99.0 FL) 98.0 MCH (27.0 - 31.0 PG) 32.9 H RDW (11.5 - 14.5 %) 13.3 Plt Count (130 - 400 /CUMM) 116 L MPV (7.4 - 10.4 FL) 9.9 Gran % (42.2 - 75.2 %) 53.2 Lymphocytes % (20.5 - 51.1 %) 34.8 Monocytes % (1.7 - 9.3 %) 9.4 H Eosinophils % (0 - 5 %) 2.0 Basophils % (0.0 - 2.0 %) 0.6 Absolute Granulocytes (1.4 - 6.5 /CUMM) 3.6 Absolute Lymphocytes (1.2 - 3.4 /CUMM) 2.4 Absolute Monocytes (0.10 - 0.60 /CUMM) 0.6 Absolute Eosinophils (0.0 - 0.7 /CUMM) 0.1 Absolute Basophils (0.0 - 0.2 /CUMM) 0 PUBS MCHC (33.0 - 37.0 G/DL) 33.6 Disposition Summary Disposition Principal Diagnosis: Intractable vomiting Hypokalemia Ulcerative esophagitis Additional Diagnosis: Diabetes mellitus Coronary artery disease Anxiety Parkinson disease Discharge Disposition: SNF Discharge Instructions General Discharge Information Code Status: Full Code Patient's Diet: Consistent carbohydrate diet Patient's Activity: As tolerated Follow-Up Instructions/Appts: Please call and make a follow-up with her primary care physician within one week after discharge Please take esomiprazole regularly. Please follow up with as an outpatient. DO NOT TAKE METOCLOPROMIDE. Please monitor your INR and dose warfarin with a goal of 2-3. Medications at Discharge Discharge Medications: Stop taking the following medications: Metoclopramide HCl (Reglan) 10 MG TABLET ORAL THREE TIMES DAILY as needed for severe nausea and vomiting Qty = 30 Continue taking these medications: Clozapine (Clozaril) 25 MG TABLET 0.5 Tablet ORAL DAILY @8 AM Days = 30 Comments: Last Taken: 12/22/16 Time: 930 AM Glipizide (Glipizide XL) 5 MG TAB.ER.24 1 Tablet ORAL Every Morning Comments: NOT GIVEN THIS ADMISSION Carbidopa/Levodopa (Sinemet 25-100 MG Tablet) 25 MG-100 MG TABLET 0.5 Tablet ORAL THREE TIMES DAILY Comments: Last Taken: 12/22/16 Time: 930 AM Multivitamin (Multiple Vitamins) 1 EACH TABLET 1 Tablet ORAL DAILY Comments: NOT GIVEN THIS ADMISSION Alprazolam (Alprazolam) 0.5 MG TABLET 1 Tablet ORAL as needed for ANXIETY/SLEEP Comments: Last Taken: 12/21/16 Time: 830 PM Loperamide HCl (Loperamide) 2 MG CAPSULE 1 Capsule ORAL As Directed as needed for DIARRHEA Comments: NOT GIVEN THIS ADMISSION Cholecalciferol (Vitamin D3) (Vitamin D3) 1,000 UNIT CAPSULE 1 Capsule ORAL TWICE DAILY Comments: Last Taken:NOT GIVEN IN HOSPITAL Time:PER PT MED LIST Pyridoxine HCl (Vitamin B-6) 100 MG TABLET 1 Tablet ORAL THREE TIMES DAILY Comments: NOT GIVEN THIS ADMISSION Warfarin Sodium (Coumadin) 4 MG TABLET 1 Tablet ORAL As Directed Instructions: Dose coumadin to keep the INR between 2-3. Please discuss with your PCP, for further instructions. Comments: Last Taken: 12/22/16 Time: 1:00 PM Simvastatin (Zocor*) 20 MG TABLET 1 Tablet ORAL DAILY Comments: GIVEN LIPITOR IN HOSPITAL ON 12/21/16 @ 5:00 PM Cyclobenzaprine HCl (Cyclobenzaprine HCl) 10 MG TABLET 1 Tablet ORAL As Directed as needed for BACK PAIN Comments: NOT GIVEN THIS ADMISSION Clozapine (Clozaril) 25 MG TABLET 1 Tablet ORAL Every night Days = 30 Comments: Last Taken: 12/22/16 Time: 930 AM Prochlorperazine Maleate (Compazine) 10 MG TABLET 1 Tablet ORAL EVERY SIX HOURS as needed for NAUSEA Days = 30 Comments: NOT GIVEN IN HOSPITAL Start taking the following new medications: Esomeprazole (Nexium) 40 MG CAPSULE.DR 1 Capsule ORAL TWICE DAILY Qty = 30 No Refills Instructions: take every day twice. ON empty stomach in the morning Comments: NOT GIVEN IN HOSPITAL PRILOSEC GIVEN 12/22 @930 AM The following medications have been changed: Old: Ondansetron (Zofran Odt) 4 MG TAB.RAPDIS 1 Tablet SUBLINGUAL As Directed as needed for NAUSEA New: Ondansetron (Zofran Odt) 4 MG TAB.RAPDIS 1 Tablet SUBLINGUAL EVERY SIX HOURS NEEDED as needed for NAUSEA Qty = 15 Comments: NOT GIVEN IN HOSPITAL Copies To: MARIA T DE GUZMAN,LAZARA Anderson; OTTO DE GUZMAN,JOSE JUAN; OREN DE GUZMAN,EVA Cannon Attending MD Review Statement Documenting Attending: NITA RODRIGEZ M.D Other Findings: I have reviewed the discharge summary.
[2016-12-19 15:01] VITALS: BP 110/70
[2016-12-19 23:42] VITALS: BP 132/80
[2016-12-20 06:34] VITALS: BP 108/64
--- NOTE | 2016-12-20 07:23 | PN- Housestaff ---
TIERRA DE GUZMAN,JUVENCIO 12/20/16 0722: Subjective Follow-up For: Intractable nausea and vomiting Subjective: I saw and examined the patitent today morning She is sitting in the chair. No overnight issues. No concerns, comfortabel. Denies any nausea, vomiting, diarrhea overnight. Review of Systems Constitutional: Reports: see HPI. Comments: ROS negative except the above. Objective Last 24 Hrs of Vital Signs/I&O Vital Signs Date Time Temp Pulse Resp B/P B/P Pulse O2 O2 Flow FiO2 Mean Ox Delivery Rate 12/20 0634 98.2 71 18 108/64 95 Room Air 12/19 2342 97.8 70 20 132/80 94 Room Air 12/19 1501 98.3 75 20 110/70 96 12/19 1218 Room Air 1.0L 12/19 0732 98.1 82 20 112/80 97 Room Air Intake & Output 12/20 0800 12/20 0000 12/19 1600 Intake Total 240 570 Output Total Balance 240 570 Intake, IV Intake, Oral 240 570 Patient 85.729 kg Weight Physical Exam General Appearance: Alert, Oriented X3, Cooperative Skin: No Rashes HEENT: Atraumatic, PERRLA, EOMI Neck: Supple Cardiovascular: Normal S1, Normal S2 Lungs: Clear to Auscultation, Normal Air Movement Abdomen: Normal Bowel Sounds, Soft, No Tenderness Neurological: Normal Speech, Normal Tone, Sensation Intact Extremities: No Clubbing, No Cyanosis Current Medications: Current Medications Sig/Mckay Start time Last Medication Dose Route Stop Time Status Admin Acetaminophen 650 MG Q6P PRN 12/16 2030 AC PO Acetaminophen 1,000 MG Q6P PRN 12/16 2030 AC IV Alprazolam 0.5 MG QPM PRN 12/16 1830 AC 12/19 PO 12/23 1829 1749 Atorvastatin Calcium 10 MG 1700 12/17 1700 AC 12/19 PO 1638 Bisacodyl 5 MG DAILY 12/19 1200 AC 12/19 PO 1205 Carbidopa/Levodopa 0.5 TAB TID 12/16 2199 AC 12/19 PO 2057 Clozapine 12.5 MG DAILY 12/17 1000 AC 12/19 PO 1204 Clozapine 25 MG QPM 12/16 2200 AC 12/19 PO 205 Insulin Aspart 0 TIDAC 12/17 0800 AC 12/18 SC 0820 Ondansetron HCl 4 MG Q6P PRN 12/16 1830 AC IV Patient Medication 1 UNIT 1700 12/19 1700 DC 12/19 Teaching ED 12/19 1701 1642 Polyethylene Glycol 17 GM DAILY 12/19 1000 AC 12/19 PO 1204 Senna/Docusate Sodium 2 TAB DAILY NEEDED PRN 12/19 0900 AC PO Warfarin Sodium 4 MG COUMADIN 1700 ONE 12/19 1700 DC 12/19 PO 12/19 1701 1638 Last 24 Hrs of Lab/Yury Results Last 24 Hrs of Labs/Mics: Laboratory Tests 12/19/16 2230: Urinalysis LIGHT H, Urine Color YEL, Urine Clarity HAZY H, Urine pH 6.0, Ur Specific [place] 1.025, Urine Protein NEG, Urine Ketones TRACE H, Urine Nitrite NEG, Urine Bilirubin NEG@ICTO, Urine Urobilinogen 0.2, Ur Leukocyte Esterase TRACE H, Ur Microscopic SEDIMENT EXAMINED, Urine RBC 1-3, Urine WBC 10-15 H, Ur Epithelial Cells MOD H, Urine Crystals 1+ CA OX H, Urine Bacteria FEW H, Hyaline Casts 5-10 H, Granular Casts 1-3 H, Urine Mucus MOD H, Urine Hemoglobin NEG, Urine Glucose NEG 12/19/16 0932: CBC w Diff NO MAN DIFF REQ, RBC 3.85 L, MCV 97.7, MCH 33.0 H, RDW 13.0, MPV 9.9, Gran % 66.9, Lymphocytes % 23.5, Monocytes % 8.5, Eosinophils % 0.8, Basophils % 0.3, Absolute Granulocytes 5.5, Absolute Lymphocytes 1.9, Absolute Monocytes 0.7 H, Absolute Eosinophils 0.1, Absolute Basophils 0, PUBS MCHC 33.8 Assessment/Plan Assessment: Patient is a 86 YO F with Extensive PMH - significant includes GERD, Parkinsons, Long standing diabetes presented with nausea vomiting again. She presented with similar complaints last month for which reasons remain unclear at that time. Plan Admitted to general medicine floor Intractable Nausea and vomiting * Previous work up has been negative, and she didnt have any episodes of vomitus after admission. * Red flag signs - weight loss of 14pounds for the past 2months * IV Zofran for nausea to continue - so far not needed * We will monitor to see if she had any further episodes of vomiting -- "IF vomited" - any blood in it. * NPO overnight for endoscopy tomorrow am. Bed is available in STR for the patient. Hypokalemia * K of 3.4 at admission, repleted by adding to fluids * repeat K level of 3.7 today Chronic and stable conditions Anxiety: alprazolam 0.5mg QPM, Clozapine 12.5mgQAM and 25mgQPM daily. Parkinsons disease: Carbidopa/Levodopa 0.5 Tab TID CAD: Aspirin 81mg, Atrovastatin 10mg Diarrhea: Loperamide 2mg Q6PRN GERD: Pantopazole 40mEQ Atrial Fibrillation: warfarin 4mg given - INR 1.53 today (subtherapeutic). Diabetes: insulin sliding scale. DVT prophylaxis: on warfarin, dosed 6mg today Code Status Full Code Problem List: 1. Atrial fibrillation 2. Diabetes Pain Ratin Pain Location: n/a Pain Goal: Pain 4 or less Pain Plan: tylenol prn Tomorrow's Labs & Rationales: PT for INR Consulting Request: Consulting Specialty: Gastroenterology Consulting Physician: Dr. Serrano Reason for Consult: Intractable vomiting ELIA DE GUZMAN,[facility] 12/20/16 1244: Attending MD Review Statement Attending Statement Attending MD Statement: examined this patient, discuss w/resident/PA/SHEET METAL PRODUCTION WORKER, agreed w/resident/PA/SHEET METAL PRODUCTION WORKER, reviewed EMR data (avail), discussed with nursing, discussed with case mgmt, amended to note Attending Assessment/Plan: Patient seen and examined. She remains alert and oriented 3. She remains without nausea vomiting during this admission. She remains without abdominal discomfort. She was scheduled for discharge yesterday [facility] patient. However daughter presented was quite upset that no intervention has been done for her mother. We did extensive hilar she has had an extensive workup in the past. He is also currently asymptomatic since admission with no episodes of vomiting right from the emergency room. She however remained adamant on staying in the hospital to she has a discussion with the gastroenterology service regarding problems condition. Medical Center did extensive the patient and felt that woke up in the past with no clear etiology identified. She has had an upper GI series during last admission. Patient remains asymptomatic and hemodynamically stable. Daughter was concerned about a urinary tract infection however patient is afebrile with no leukocytosis. She has no urinary complaints whatsoever. Urinalysis acute evidence of infection. No need for robotic therapy for now. She remains medically stable for discharge. Currently awaiting discussion between the patient's daughter and gastroenterology service. Have explained to the patient's and her daughter that this follow-up can be done as an outpatient. Daughter however wants to speak with the gastroenterology service while here in the hospital.
[2016-12-20 14:29] VITALS: BP 100/70
[2016-12-20 22:52] VITALS: BP 112/70
[2016-12-21 06:59] VITALS: BP 110/62
--- NOTE | 2016-12-21 07:15 | PN- Housestaff ---
TIERRA DE GUZMAN,JUVENCIO 12/21/16 0713: Subjective Follow-up For: Intracatable nausea and vomiting Subjective: I saw and examined the patient today morning She is doing well, at baseline. Confused. Alert and oriented to person. Anxious about the procedure. Underwent endoscopy today, found to have ulcerative esophagitis. Review of Systems Constitutional: Reports: see HPI. Comments: ROS negative except the above. Objective Last 24 Hrs of Vital Signs/I&O Vital Signs Date Time Temp Pulse Resp B/P B/P Pulse O2 O2 Flow FiO2 Mean Ox Delivery Rate 12/21 0659 97.3 76 20 110/62 94 Room Air 12/20 2252 98.4 76 18 112/70 93 Room Air 12/20 1429 98.2 98 18 100/70 98 Intake & Output 12/21 0800 12/21 0000 12/20 1600 Intake Total 240 480 800 Output Total 250 400 Balance -10 480 400 Intake, Oral 240 480 800 Output, Urine 250 400 Physical Exam General Appearance: Alert Skin: No Rashes, No Breakdown HEENT: Atraumatic, PERRLA, EOMI Neck: Supple Cardiovascular: Normal S1, Normal S2 Lungs: Clear to Auscultation, Normal Air Movement Neurological: Normal Tone, Sensation Intact Extremities: No Clubbing, No Cyanosis Current Medications: Current Medications Sig/Mckay Start time Last Medication Dose Route Stop Time Status Admin Acetaminophen 650 MG Q6P PRN 12/16 2030 AC PO Acetaminophen 1,000 MG Q6P PRN 12/16 2030 AC IV Alprazolam 0.5 MG QPM PRN 12/16 1830 AC 12/20 PO 12/23 1829 2045 Atorvastatin Calcium 10 MG 1700 12/17 1700 AC 12/20 PO 1719 Bisacodyl 10 MG ONCE ONE 12/20 1200 DC 12/20 DC 12/20 1201 1312 Bisacodyl 5 MG DAILY 12/19 1200 AC 12/20 PO 0907 Carbidopa/Levodopa 0.5 TAB TID 12/16 2200 AC 12/20 PO 204 Clozapine 12.5 MG DAILY 12/17 1000 AC 12/20 PO 0907 Clozapine 25 MG QPM 12/16 2200 AC 12/20 PO 2046 Insulin Aspart 0 TIDAC 12/17 0800 AC 12/20 SC 1207 Ondansetron HCl 4 MG Q6P PRN 05/12 1830 AC IV Polyethylene Glycol 17 GM DAILY 12/19 1000 AC 12/20 PO 0907 Senna/Docusate Sodium 2 TAB DAILY NEEDED PRN 12/19 0900 AC 12/20 PO 1207 Sodium Phosphate 1 UNIT ONCE ONE 12/20 1400 DC DC 12/20 1401 Warfarin Sodium 6 MG COUMADIN 1700 ONE 12/20 1700 DC 12/20 PO 12/20 1701 1718 Last 24 Hrs of Lab/Yury Results Last 24 Hrs of Labs/Mics: Laboratory Tests 12/21/16 0625: PT 15.8 H, INR 1.51 H Assessment/Plan Assessment: Patient is a 86 YO F with Extensive PMH - significant includes GERD, Parkinsons, Long standing diabetes presented with nausea vomiting again. She presented with similar complaints last month for which reasons remain unclear at that time. Plan Admitted to general medicine floor Ulcerative esophagitis * Patient was asymptomatic from admission, reportedly episodes are intermittent * We will start on PPI BID, patient had history of diarrhea with omeprazole, not tolerating pantoprazole * However we will give a try with oral pantoprazole today. * family is willing to take her home. [facility] available in [facility] for the patient. Hypokalemia * K of 3.4 at admission, repleted by adding to fluids * repeat K level of 3.7 today Chronic and stable conditions Anxiety: alprazolam 0.5mg QPM, Clozapine 12.5mgQAM and 25mgQPM daily. Parkinsons disease: Carbidopa/Levodopa 0.5 Tab TID CAD: Aspirin 81mg, Atrovastatin 10mg Diarrhea: Loperamide 2mg Q6PRN GERD: Pantopazole 40mEQ Atrial Fibrillation: warfarin 6mg given - INR 1.53 today (subtherapeutic). Diabetes: insulin sliding scale. DVT prophylaxis: on warfarin, dosed 6mg today Code Status Full Code Problem List: 1. Intractable vomiting 2. Ulcerative esophagitis Pain Ratin Pain Location: n/a Pain Goal: Remain pain free Pain Plan: tylenol prn Tomorrow's Labs & Rationales: PT for dosing warfarin Consulting Request: Consulting Specialty: Gastroenterology Consulting Physician: Dr. Serrano Reason for Consult: Intractable vomiting ELIA DE GUZMAN,NITA 12/21/16 1201: Attending MD Review Statement Attending Statement Attending MD Statement: examined this patient, discuss w/resident/PA/MANAGING MEMBER, agreed w/resident/PA/MANAGING MEMBER, discussed with family, reviewed EMR data (avail), discussed with nursing, discussed with case mgmt, amended to note Attending Assessment/Plan: Patient seen and examined. She remains alert and oriented 3. She remains hemodynamically stable. She remains without any complaints of nausea vomiting or abdominal pain. She continues to tolerate her diet with no complaints. She is scheduled today to undergo an EGD per recommendations of the gastroenterology service. Results will be followed up on for the disposition will be decided after that. Patient's daughter reports that she did speak with her notch machine operator Dr. Carlos Cespedes regarding consent for the EGD. She will be in conversation with him following the procedure regarding findings and potential causes of the episodes of nausea/ vomiting she reports that the patient has been having at home. Further disposition will be decided on following the procedure today.
[2016-12-21 08:35] LABS: PT 15.8 SEC (9.4-12.5)
--- NOTE | 2016-12-21 13:05 | Proc Note Endoscopy ---
Endoscopy Procedure Procedure Date: 12/21/16 Procedure Type: EGD w/biopsy Door Clamp Operator: Carlos Cespedes M.D. ASA Classification: III Indications: Nausea, vomiting Instrument: diagnostic gastroscope Meds Received: MAC (O2 via mask) Patient's Tolerance: good Complications: none Extent Reached: second part of duodenum Procedure: Informed, witnessed telephone consent was obtained from the patient's daughter LEONARD Goncalves. The patient was medicated. Hurricaine pharyngeal spray was administered. Pulse oximetry, blood pressure and cardiac monitoring were performed continuously throughout the procedure. The Olympus high-definition gastroscope was inserted into the mouth and advanced to the duodenum. Retroflexion was performed within the stomach to examine the cardia. Careful examination was performed. Findings: The esophagus had normal caliber and contour. Beginning at 28 cm there were several linear erosions which extended far distally. In the distal esophagus there were multiple ulcerations covered with exudate. At the GE junction at 38 cm was a ring, and distal to this was a hiatal hernia. The stomach had normal distention, and active antral peristalsis. The cardia was normal. Mucosa and folds of the fundus body and incisura were normal. There was some bumpiness to the mucosa of the antrum. There was distal antral edema. The pyloric channel was normal. 3 antral biopsies were obtained. The duodenal bulb was normal. Mucosa and folds of the duodenal sweep were normal. Impression: * Ulcerative esophagitis * Hiatal hernia * Antritis Recommendations: * Await pathology * Twice a day PPI., According to the patient's daughter, the patient developed diarrhea on omeprazole, and was intolerant of pantoprazole. Apparently she tolerated esomeprazole. Would recommend rabeprazole 20 mg by mouth twice a day, if covered by insurance. CC: MARIA T DE GUZMAN,LAZARA Anderson
[2016-12-21 14:34] VITALS: BP 110/82
[2016-12-21 22:06] VITALS: BP 140/74
[2016-12-22 06:50] VITALS: BP 100/68
--- NOTE | 2016-12-22 07:07 | PN- Housestaff ---
TIERRA DE GUZMAN,JUVENCIO 12/22/16 0706: Subjective Follow-up For: Ulcerative esophagitis Subjective: I saw and examined the patient today morning She is sitting and having her breakfast. Very happy to go home. Review of Systems Constitutional: Reports: see HPI. Comments: ROS negative except the above. Objective Last 24 Hrs of Vital Signs/I&O Vital Signs Date Time Temp Pulse Resp B/P B/P Pulse O2 O2 Flow FiO2 Mean Ox Delivery Rate 12/22 0650 97.0 75 20 100/68 92 Room Air 12/21 2205 98.1 78 20 140/74 94 Room Air 12/21 1434 98.6 74 20 110/82 95 Intake & Output 12/22 0800 12/22 0000 12/21 1600 Intake Total 0 130 Output Total Balance 0 130 Intake, IV 0 10 Intake, Oral 0 120 Number 1 Bowel Movements Physical Exam General Appearance: Alert, Oriented X3, Cooperative, No Acute Distress Skin: No Rashes, No Breakdown HEENT: Atraumatic, PERRLA Neck: Supple Cardiovascular: Normal S1, Normal S2 Lungs: Clear to Auscultation, Normal Air Movement Abdomen: Normal Bowel Sounds, Soft, No Tenderness Neurological: Normal Gait, Normal Speech, Strength at 5/5 X4 Ext, Normal Tone Current Medications: Current Medications Sig/Mckay Start time Last Medication Dose Route Stop Time Status Admin Acetaminophen 650 MG Q6P PRN 12/16 2030 AC PO Acetaminophen 1,000 MG Q6P PRN 12/16 2030 AC IV Alprazolam 0.5 MG QPM PRN 12/16 1830 AC 12/21 PO 12/23 Atorvastatin Calcium 10 MG 1700 12/17 1700 AC 12/21 PO 1702 Benzocaine 1 PALLAVI .STK-MED ONE 12/21 1402 DC TOP 12/21 1403 Bisacodyl 5 MG DAILY 12/19 1200 AC 12/20 PO 0907 Carbidopa/Levodopa 0.5 TAB TID 12/16 2199 AC 12/21 PO 202 Clozapine 12.5 MG DAILY 12/17 1000 AC 12/21 PO 0939 Clozapine 25 MG QPM 12/160 AC 12/21 PO 202 Insulin Aspart 0 TIDAC 12/17 0800 AC 12/21 SC 1705 Lidocaine 2 PALLAVI .STK-MED ONE 12/21 1402 DC TOP 12/21 1403 Lidocaine 50 ML .STK-MED ONE 12/21 1402 DC [facility] 12/21 1403 Omeprazole 40 MG BID 12/21 2200 AC 12/21 PO 2025 Ondansetron HCl 4 MG Q6P PRN 12/16 1830 AC IV Patient Medication 1 ED ONE ONE 12/21 1400 DC Teaching ED 12/21 1401 Polyethylene Glycol 17 GM DAILY 12/19 1000 AC 12/20 PO 0907 Senna/Docusate Sodium 2 TAB DAILY NEEDED PRN 12/19 0900 AC 12/20 PO 1207 Warfarin Sodium 6 MG COUMADIN 1700 ONE 12/21 1700 DC 12/21 PO 12/21 1701 1703 Last 24 Hrs of Lab/Yury Results Last 24 Hrs of Labs/Mics: Laboratory Tests 12/22/16 0635: Magnesium 1.8, PT 17.7 H, INR 1.69 H Assessment/Plan Assessment: Patient is a 86 YO F with Extensive PMH - significant includes GERD, Parkinsons, Long standing diabetes presented with nausea vomiting again. She presented with similar complaints last month for which reasons remain unclear at that time. Plan Admitted to general medicine floor Ulcerative esophagitis * Doing well * Started on pantop yesterday, discharged today with esomeprazole 40mg BID for her ulcer in esophagus and antritis. Discharged home today. Hypokalemia * Resolved Chronic and stable conditions Anxiety: alprazolam 0.5mg QPM, Clozapine 12.5mgQAM and 25mgQPM daily. Parkinsons disease: Carbidopa/Levodopa 0.5 Tab TID CAD: Aspirin 81mg, Atrovastatin 10mg Diarrhea: Loperamide 2mg Q6PRN GERD: Pantopazole 40mEQ Atrial Fibrillation: warfarin 6mg given - INR 1.53 today (subtherapeutic). Diabetes: insulin sliding scale. DVT prophylaxis: on warfarin, dosed 6mg today Code Status Full Code Problem List: 1. Ulcerative esophagitis Pain Ratin Pain Location: n/a Pain Goal: Pain 4 or less Pain Plan: tylenol prn Tomorrow's Labs & Rationales: none Consulting Request: Consulting Specialty: Gastroenterology Consulting Physician: Dr. Serrano Reason for Consult: Intractable vomiting ELIA DE GUZMAN,NITA 12/22/16 1136: Attending MD Review Statement Attending Statement Attending MD Statement: examined this patient, discuss w/resident/PA/ICT DEVELOPMENT MANAGER, agreed w/resident/PA/ICT DEVELOPMENT MANAGER, reviewed EMR data (avail), discussed with nursing, discussed with case mgmt, amended to note Attending Assessment/Plan: Patient seen and examined. Resting comfortably not in any acute distress. No issues overnight. EEG results noted. Patient has been started on PPI therapy. She continues to report no symptoms today. She continues to tolerate her diet. She is being discharged today in the company of her daughter. Daughter no longer wishes for the patient to be discharged to [facility] and is happy to take her home today. She has been advised to follow-up with her primary care provider as an outpatient. INR has been subtherapeutic here. She did receive subtherapeutic dose of Coumadin initially. She will receive a dose of 6mg of Coumadin today and can resume her routine dose tomorrow. This has been explained to the family. She is medically stable to be discharged today.
[2016-12-22] MEDS ORDERED: NEXIUM40 M1 PO ×2 (07:37→11:35)
[2016-12-22 08:13] LABS: PT 17.7 SEC (9.4-12.5)
[2016-12-22 14:06] VITALS: BP 120/60
== END 2016-12-22 14:07 | disposition home health service (06) | DRG 382 ==
LOC: ERH 11:23 → ERHI 14:29 → 2NA 14:29 → ENRESERV 16:01 → 2NA 16:38 → ENPENDDIS 12-22 09:54 → 2NA 12-22 14:07
PROVIDERS: Emergency Medicine; Internal Medicine; Preventive Medicine Public Health & General Preventive Medicine; ADMIT Internal Medicine
PROC: 0DB68ZX Excision of Stomach, Via Natural or Artificial Opening Endoscopic, Diagnostic (ICD-10-PCS; principal; 2016-12-21)
DX: K22.10 Ulcer of esophagus without bleeding (principal); G20 Parkinson's disease; I48.2 Chronic atrial fibrillation; E11.9 Type 2 diabetes mellitus without complications; K21.9 Gastro-esophageal reflux disease without esophagitis; Z79.01 Long term (current) use of anticoagulants; F31.9 Bipolar disorder, unspecified; Z68.32 Body mass index [BMI] 32.0-32.9, adult; Z95.0 Presence of cardiac pacemaker; E87.6 Hypokalemia; K29.60 Other gastritis without bleeding; K44.9 Diaphragmatic hernia without obstruction or gangrene; E78.5 Hyperlipidemia, unspecified; Z85.038 Personal history of other malignant neoplasm of large intestine; Z79.84 Long term (current) use of oral hypoglycemic drugs; K29.70 Gastritis, unspecified, without bleeding
CPT/HCPCS: 2NASP; 36415; 74177; 81001; 82436; 87086; 88305; 88312; 93005; 93010; 96374; 96375; 97110-GO; 97116-GO; 97161-GP; 97530-GO; J0131; J0696; J2405; J2765; J7042